=== PATIENT | male | born 1935 | race Caucasian/White ===

== ENCOUNTER → 2016-06-19 | Outpatient (CLI) | payer MEDICARE, BC ==
[2016-06-19 08:30] LABS: HEMATOCRIT 34.3 % (37.9-51.0); HEMOGLOBIN 11.8 g/dL (13.5-17.0); HGB HCT DIFFERENCE 1.1; MEAN CORPUSCULAR HGB CONC 34.4 g/dL (32.0-36.0); MEAN CORPUSCULAR VOLUME 99 fl (80-97); RED BLOOD COUNT 3.47 10^6/uL (4.35-5.55); RED CELL DISTRIBUTION WIDTH 15.5 % (11.5-14.0)
[2016-06-19 08:56] LABS: BASOPHILS % (MANUAL) 0 % (0-2); EOSINOPHILS % (MANUAL) 5 % (0-6); LYMPHOCYTES % (MANUAL) 47 % (13-45); TOTAL CELLS COUNTED 100
[2016-06-19 08:59] LABS: ALANINE AMINOTRANSFERASE 39 U/L (21-72); ALBUMIN 4.3 g/dL (3.5-5.0); ALKALINE PHOSPHATASE 84 U/L (38-126); ANION GAP 12 (5-19); ANISOCYTOSIS SLIGHT; ASPARTATE AMINO TRANSFERASE 41 U/L (17-59); BILIRUBIN,DIRECT 0.2 mg/dL (0.0-0.4); BILIRUBIN,TOTAL 0.8 mg/dL (0.2-1.3); BLOOD UREA NITROGEN 48 mg/dL (7-20); CALCIUM 8.8 mg/dL (8.4-10.2); CARBON DIOXIDE 25 mmol/L (22-30); CHLORIDE 106 mmol/L (98-107); CREATININE RESULT 1.55 mg/dL (0.52-1.25); GLUCOSE 84 mg/dL (75-110); OVALOCYTES 1+; POIKILOCYTOSIS 1+; POTASSIUM 4.8 mmol/L (3.6-5.0); SODIUM 143.2 mmol/L (137-145); TEAR DROP CELLS 1+; TOTAL PROTEIN 6.1 g/dL (6.3-8.2); URIC ACID 8.8 mg/dL (3.5-8.5)
[2016-06-20 05:40] LABS: THYROXINE (T4) 9.6 ug/dL (4.5-12.0)
== END ==
LOC: OD 07:40
PROVIDERS: ATTEND Family Medicine
DX: E03.9 Hypothyroidism, unspecified (principal); I10 Essential (primary) hypertension; C91.10 Chronic lymphocytic leukemia of B-cell type not having achieved remission
CPT/HCPCS: 36415; 80053; 84436; 84443; 84479; 84550; 85025

== ENCOUNTER 2017-04-07 13:25 | Emergency (ER) | payer MEDICARE, BC ==
--- NOTE | 2017-04-07 14:07 | ER Document Report ---
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 Constant. No injuries. He has been uptrending his oxycodone. He thinks that it is pseudogout. He has no myalgia sore throat or fevers. His has noted him to be increasingly confused in the setting of increasing his opiate use. TRAVEL OUTSIDE OF THE [place] 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 Musculoskeltal Medical History: Reports Hx Arthritis Past Surgical History: Reports: Hx Appendectomy, Hx Herniorrhaphy - Left inguinal, Hx Orthopedic Surgery - Right ankle reconstruction, multilevel spinal fusion, Hx Vascular Surgery - Varicose vein surgery Review of Systems - Review of Systems Notes: REVIEW OF SYSTEMS GEN: Denies fever, chills, weight loss ENT: Denies sore throat, nasal discharge, ear pain EYES: Denies blurry vision, eye pain, discharge CV: Denies chest pain, palpitations, edema RESP: Denies cough, shortness of breath, wheezing GI: Denies abdominal pain, nausea, vomiting, diarrhea MSK: Generalized joint pain, leg edema bilaterally SKIN: Denies rash, skin lesions LYMPH: Denies swollen glands/lymph nodes NEURO: Denies headache, focal weakness or numbness, dizziness PSYCH: Denies depression, suicidal or homicidal ideation PHYSICAL EXAMINATION General: No acute distress, well-nourished Head: Atraumatic, normocephalic ENT: Mouth normal, oropharynx moist, no exudates or tonsillar enlargement Eyes: Conjunctiva normal, pupils equal, lids normal Neck: No JVD, supple, no guarding CVS: Normal rate, regular rhythm, no murmurs Resp: No resp distress, equal and normal breath sounds bilaterally GI: Nondistended, soft, no tenderness to palpation, no rebound or guarding Ext: No deformities, chronic discoloration in bilateral leg edema from the calves to the toes. Shoulder with some pain on range of motion but range of motion is generally preserved without crepitus. Knee and ankle range of motion is normal. Back: No CVA or midline TTP Skin: No rash, warm Lymphatic: No lymphadeopathy noted Neuro: Awake, alert. Face symmetric. GCS 15. Sharp memory. Speech fluent. Physical Exam - Vital signs Vitals: Resp Pulse Ox 18 96 04/07/17 13:38 04/07/17 13:38 Course - Re-evaluation Re-evalutation: 04/07/17 14:06 81-year-old male with increased confusion in the setting of increasing oxycodone dose taken for chronic recurrent joint pains. None of his joints appear hot and inflamed so I do not think he has septic arthritis. Likely a polyarthralgia such as pseudogout or generalized myalgias. That said the pain is only in joints and he has no muscle tenderness or firmness making rhabdo myolysis less likely. I will rule out a UTI and infection with urine and labs. I withhold opiates given his reported confusion. 04/07/17 16:01 Labs are normal creatinine is at baseline and urine is negative. Chest x-ray did not show volume overload. Spoke with patient, as well as his primary care doctor Macho and his daughter who is a physician. All are in agreement that he would be best served at home with home health which they are able to set up. I told him if he is having issues with that he can come back anytime and be admitted for placement. Asked me to send an ESR for concern for polymyalgia rheumatica. This was added on to be followed up by the primary. I see fax the primary care doctor the records from today. I have discussed with the patient there likely diagnosis, aftercare plan, follow -up plans and my usual and customary return precautions. They verbalized understanding of this. - Vital Signs Vital signs: Temp Pulse Resp BP Pulse Ox 99.1 F 14 141/74 H 100 04/07/17 13:39 04/07/17 15:26 04/07/17 15:26 04/07/17 15:26 - Laboratory Result Diagrams: 04/07/17 13:55 04/07/17 13:55 Laboratory results interpreted by me: 04/07/17 04/07/17 04/07/17 13:55 13:55 15:23 RBC 3.17 L Hgb 10.8 L Hct 32.3 L MCV 102 H MCH 34.1 H RDW 14.2 H Plt Count 67 L Band Neutrophils % 1 L Chloride 108 H BUN 33 H Creatinine 1.58 H Est GFR ( Amer) 51 L Est GFR (Non-Af Amer) 42 L Glucose 119 H Urine Protein 100 H Urine Ascorbic Acid 40 H Discharge - Discharge Clinical Impression: Arthralgia Qualifiers: Joint pain location: unspecified Qualified Code(s): M25.50 - Pain in unspecified joint Condition: Good Disposition: HOME, SELF-CARE Instructions: Pseudogout ([facility]) Additional Instructions: Please carefully use oxycodone to control your pain. You may add Tylenol, and ibuprofen as needed. A short course of ibuprofen should not be too bad for your stomach. I spoke with your doctor who will help to arrange home health. If you feel that you are too weak to accomplish her goals with home health or get any sicker in any way please return to the emergency room for admission to the hospital. Referrals: ISMAEL HARRIS MD [Primary Care Provider] - Follow up as needed
[2017-04-07] MEDS ORDERED: LIDOCAINE 2% JELLY 5 ML TUBE TOP ONE (14:15)
--- NOTE | 2017-04-07 14:32 | RADIOLOGY REPORT (SQ) ---
EXAM DESCRIPTION: CHEST SINGLE VIEW COMPLETED DATE/TIME: 04/07/2017 2:05 pm REASON FOR STUDY: ams, r/o infultraste COMPARISON: 01/31/2016 EXAM PARAMETERS: NUMBER OF VIEWS: One view. TECHNIQUE: Single frontal radiographic view of the chest acquired. RADIATION DOSE: NA LIMITATIONS: None. FINDINGS: LUNGS AND PLEURA: No evidence of pulmonary edema or pneumonia. No effusions. MEDIASTINUM AND HILAR STRUCTURES: Calcified mediastinal nodes. HEART AND VASCULAR STRUCTURES: Stable heart size. BONES: No acute findings. HARDWARE: Stable position of pacemaker. OTHER: No other significant finding. IMPRESSION: NO ACUTE RADIOGRAPHIC FINDING IN THE CHEST. TECHNICAL DOCUMENTATION: JOB ID: [id number] [employer]- All Rights Reserved
[2017-04-07 14:34] LABS: HEMATOCRIT 32.3 % (37.9-51.0); HEMOGLOBIN 10.8 g/dL (13.5-17.0); MEAN CORPUSCULAR HEMOGLOBIN 34.1 pg (27.0-33.4); MEAN CORPUSCULAR HGB CONC 33.5 g/dL (32.0-36.0); MEAN CORPUSCULAR VOLUME 102 fl (80-97); RED BLOOD COUNT 3.17 10^6/uL (4.35-5.55); RED CELL DISTRIBUTION WIDTH 14.2 % (11.5-14.0); WHITE BLOOD COUNT 7.5 10^3/uL (4.0-10.5)
[2017-04-07 14:47] LABS: ANION GAP 5 (5-19); BLOOD UREA NITROGEN 33 mg/dL (7-20); CALCIUM 8.8 mg/dL (8.4-10.2); CARBON DIOXIDE 25 mmol/L (22-30); CHLORIDE 108 mmol/L (98-107); GLUCOSE 119 mg/dL (75-110); POTASSIUM 4.3 mmol/L (3.6-5.0); SODIUM 137.8 mmol/L (137-145)
[2017-04-07 15:08] LABS: PLATELET COUNT 67 10^3/uL (150-450)
[2017-04-07 15:10] LABS: ABSOLUTE MONOCYTES # (MANUAL) 0.4 10^3/uL (0.1-1.4); ABSOLUTE NEUTROPHILS# (MANUAL) 5.1 10^3/uL (1.7-8.2); BAND NEUTROPHILS % (MANUAL) 1 % (3-5); BASOPHILS % (MANUAL) 0 % (0-2); EOSINOPHILS % (MANUAL) 0 % (0-6); LYMPHOCYTES % (MANUAL) 27 % (13-45); MONOCYTES % (MANUAL) 5 % (3-13); SEGMENTED NEUTROPHILS % (MAN) 67 % (42-78); TOTAL CELLS COUNTED 100
[2017-04-07 15:11] LABS: OVALOCYTES 1+; PLATELET COMMENT DECREASED; POIKILOCYTOSIS 1+; POLYCHROMASIA SLIGHT; TOXIC GRANULATION SLIGHT
[2017-04-07 15:12] LABS: HYPOCHROMASIA SLIGHT; TEAR DROP CELLS SLIGHT
[2017-04-07 15:51] LABS: APPEARANCE,URINE SLIGHTLY-CLOUDY; BILIRUBIN,URINE NEGATIVE (NEGATIVE); COLOR,URINE YELLOW; GLUCOSE, URINE NEGATIVE (NEGATIVE); KETONES,URINE NEGATIVE (NEGATIVE); LEUKOCYTE ESTERASE,URINE NEGATIVE (NEGATIVE); NITRITE,URINE NEGATIVE (NEGATIVE); PROTEIN,URINE 100 mg/dL (NEGATIVE); UROBILINOGEN,URINE NEGATIVE mg/dL (<2.0)
[2017-04-07 16:12] VITALS: BP 139/72
== END 2017-04-07 16:44 | disposition home or self-care (01) ==
LOC: ER 13:25
DX: M25.50 Pain in unspecified joint (principal); M79.1 Myalgia; I50.9 Heart failure, unspecified; I48.91 Unspecified atrial fibrillation; E78.00 Pure hypercholesterolemia, unspecified; E03.9 Hypothyroidism, unspecified; Z98.1 Arthrodesis status
CPT/HCPCS: 36415; 51701; 71045; 80048; 81001; 83605; 85025; 85652; 87040; 87086; 99284

== ENCOUNTER → 2017-05-01 | Outpatient (CLI) | payer MEDICARE, BC ==
[2017-05-01 08:45] LABS: HEMATOCRIT 33.4 % (37.9-51.0); HEMOGLOBIN 11.1 g/dL (13.5-17.0); MEAN CORPUSCULAR HEMOGLOBIN 34.2 pg (27.0-33.4); MEAN CORPUSCULAR HGB CONC 33.3 g/dL (32.0-36.0); MEAN CORPUSCULAR VOLUME 103 fl (80-97); RED BLOOD COUNT 3.25 10^6/uL (4.35-5.55); RED CELL DISTRIBUTION WIDTH 15.6 % (11.5-14.0); WHITE BLOOD COUNT 9.2 10^3/uL (4.0-10.5)
[2017-05-01 09:11] LABS: PLATELET COUNT 68 10^3/uL (150-450)
[2017-05-01 09:13] LABS: ABSOLUTE LYMPHOCYTES# (MANUAL) 4.4 10^3/uL (0.5-4.7); ABSOLUTE MONOCYTES # (MANUAL) 0.3 10^3/uL (0.1-1.4); ABSOLUTE NEUTROPHILS# (MANUAL) 4.1 10^3/uL (1.7-8.2); BASOPHILS % (MANUAL) 0 % (0-2); EOSINOPHILS % (MANUAL) 4 % (0-6); LYMPHOCYTES % (MANUAL) 48 % (13-45); MONOCYTES % (MANUAL) 3 % (3-13); SEGMENTED NEUTROPHILS % (MAN) 45 % (42-78); TOTAL CELLS COUNTED 100
[2017-05-01 09:14] LABS: ANISOCYTOSIS SLIGHT; OVALOCYTES 1+; POIKILOCYTOSIS 2+; SCHISTOCYTES 1+
[2017-05-01 09:15] LABS: PLATELET COMMENT DECREASED; TEAR DROP CELLS 1+
== END ==
LOC: OD 08:06
PROVIDERS: ATTEND Internal Medicine Medical Oncology
DX: C91.10 Chronic lymphocytic leukemia of B-cell type not having achieved remission (principal)
CPT/HCPCS: 36415; 85025

== ENCOUNTER → 2017-05-08 | Outpatient (CLI) | payer MEDICARE, BC ==
[2017-05-08 08:00] LABS: HEMOGLOBIN 10.8 g/dL (13.5-17.0); MEAN CORPUSCULAR HEMOGLOBIN 34.6 pg (27.0-33.4); MEAN CORPUSCULAR HGB CONC 33.8 g/dL (32.0-36.0); MEAN CORPUSCULAR VOLUME 103 fl (80-97); RED BLOOD COUNT 3.12 10^6/uL (4.35-5.55); RED CELL DISTRIBUTION WIDTH 16.3 % (11.5-14.0); WHITE BLOOD COUNT 9.2 10^3/uL (4.0-10.5)
[2017-05-08 08:34] LABS: ALANINE AMINOTRANSFERASE 28 U/L (21-72); ALBUMIN 3.6 g/dL (3.5-5.0); ALKALINE PHOSPHATASE 72 U/L (38-126); ANION GAP 8 (5-19); ASPARTATE AMINO TRANSFERASE 14 U/L (17-59); BILIRUBIN,DIRECT 0.3 mg/dL (0.0-0.4); BILIRUBIN,TOTAL 0.8 mg/dL (0.2-1.3); BLOOD UREA NITROGEN 35 mg/dL (7-20); CALCIUM 8.7 mg/dL (8.4-10.2); CARBON DIOXIDE 27 mmol/L (22-30); CHLORIDE 108 mmol/L (98-107); GLUCOSE 92 mg/dL (75-110); POTASSIUM 4.4 mmol/L (3.6-5.0); SODIUM 142.5 mmol/L (137-145); TOTAL PROTEIN 5.7 g/dL (6.3-8.2)
[2017-05-08 08:42] LABS: PLATELET COUNT 71 10^3/uL (150-450)
[2017-05-08 08:43] LABS: ABSOLUTE LYMPHOCYTES# (MANUAL) 6.7 10^3/uL (0.5-4.7); ABSOLUTE MONOCYTES # (MANUAL) 0.1 10^3/uL (0.1-1.4); ABSOLUTE NEUTROPHILS# (MANUAL) 2.4 10^3/uL (1.7-8.2); ANISOCYTOSIS 1+; BASOPHILS % (MANUAL) 0 % (0-2); EOSINOPHILS % (MANUAL) 0 % (0-6); LYMPHOCYTES % (MANUAL) 73 % (13-45); MONOCYTES % (MANUAL) 1 % (3-13); PLATELET COMMENT DECREASED; SEGMENTED NEUTROPHILS % (MAN) 26 % (42-78); TOTAL CELLS COUNTED 100
[2017-05-08 14:46] LABS: HEMOGLOBIN 10.8 g/dL (13.5-17.0); MEAN CORPUSCULAR HEMOGLOBIN 34.6 pg (27.0-33.4); MEAN CORPUSCULAR HGB CONC 33.8 g/dL (32.0-36.0); MEAN CORPUSCULAR VOLUME 103 fl (80-97); RED BLOOD COUNT 3.12 10^6/uL (4.35-5.55); RED CELL DISTRIBUTION WIDTH 16.3 % (11.5-14.0); WHITE BLOOD COUNT 9.2 10^3/uL (4.0-10.5)
[2017-05-08 14:47] LABS: PLATELET COUNT 71 10^3/uL (150-450)
[2017-05-08 14:48] LABS: ABSOLUTE LYMPHOCYTES# (MANUAL) 6.6 10^3/uL (0.5-4.7); ABSOLUTE MONOCYTES # (MANUAL) 0.1 10^3/uL (0.1-1.4); ABSOLUTE NEUTROPHILS# (MANUAL) 2.4 10^3/uL (1.7-8.2); BASOPHILS % (MANUAL) 0 % (0-2); EOSINOPHILS % (MANUAL) 0 % (0-6); MONOCYTES % (MANUAL) 1 % (3-13); SEGMENTED NEUTROPHILS % (MAN) 26 % (42-78); TOTAL CELLS COUNTED 100
[2017-05-08 14:49] LABS: ANISOCYTOSIS 1+; LYMPHOCYTES % (MANUAL) 72 % (13-45); PLATELET COMMENT DECREASED
[2017-05-08 14:51] LABS: SMUDGE CELLS PRESENT
[2017-05-08 14:52] LABS: SMUDGE CELLS PRESENT
[2017-05-08 15:00] LABS: ALANINE AMINOTRANSFERASE 28 U/L (21-72); ALBUMIN 3.6 g/dL (3.5-5.0); ALKALINE PHOSPHATASE 72 U/L (38-126); ANION GAP 8 (5-19); ASPARTATE AMINO TRANSFERASE 14 U/L (17-59); BILIRUBIN,DIRECT 0.3 mg/dL (0.0-0.4); BILIRUBIN,TOTAL 0.8 mg/dL (0.2-1.3); BLOOD UREA NITROGEN 35 mg/dL (7-20); CALCIUM 8.7 mg/dL (8.4-10.2); CARBON DIOXIDE 27 mmol/L (22-30); CHLORIDE 108 mmol/L (98-107); GLUCOSE 92 mg/dL (75-110); POTASSIUM 4.4 mmol/L (3.6-5.0); SODIUM 142.5 mmol/L (137-145); TOTAL PROTEIN 5.7 g/dL (6.3-8.2)
[2017-05-08 15:08] LABS: CHOLESTEROL 143.05 mg/dL (0-200); CREATINE KINASE 64 U/L (55-170); TRIGLYCERIDES 77 mg/dL (<150); URIC ACID 7.4 mg/dL (3.5-8.5)
[2017-05-08 15:17] LABS: DIRECT LDL 65 mg/dL (<100)
[2017-05-08 15:42] LABS: C-REACTIVE PROTEIN < 5.0 mg/L (<10.0)
[2017-05-09 13:19] LABS: PATH REVIEW PATHOLOGIST REVIEWED
[2017-05-09 13:20] LABS: PATH REVIEW PATHOLOGIST REVIEWED
== END ==
LOC: OD 07:10
PROVIDERS: ATTEND Family Medicine
DX: C91.10 Chronic lymphocytic leukemia of B-cell type not having achieved remission (principal)
CPT/HCPCS: 36415; 80053; 80061; 82533; 82550; 83735; 84443; 84550; 85025; 86038; 86140; 86430

== ENCOUNTER → 2017-06-18 | Outpatient (CLI) | payer MEDICARE, BC ==
[2017-06-18 09:16] LABS: HEMATOCRIT 32.5 % (37.9-51.0); HEMOGLOBIN 10.8 g/dL (13.5-17.0); MEAN CORPUSCULAR HEMOGLOBIN 34.2 pg (27.0-33.4); MEAN CORPUSCULAR HGB CONC 33.1 g/dL (32.0-36.0); MEAN CORPUSCULAR VOLUME 103 fl (80-97); RED BLOOD COUNT 3.15 10^6/uL (4.35-5.55); RED CELL DISTRIBUTION WIDTH 15.7 % (11.5-14.0)
[2017-06-18 09:38] LABS: ANION GAP 10 (5-19); BLOOD UREA NITROGEN 46 mg/dL (7-20); C-REACTIVE PROTEIN 21.4 mg/L (<10.0); CALCIUM 8.7 mg/dL (8.4-10.2); CARBON DIOXIDE 29 mmol/L (22-30); CHLORIDE 108 mmol/L (98-107); CHOLESTEROL 146.77 mg/dL (0-200); CREATINE KINASE 63 U/L (55-170); GLUCOSE 98 mg/dL (75-110); PHOSPHORUS 3.9 mg/dL (2.5-4.5); POTASSIUM 5.2 mmol/L (3.6-5.0); SODIUM 146.6 mmol/L (137-145); TRIGLYCERIDES 55 mg/dL (<150); URIC ACID 8.1 mg/dL (3.5-8.5)
[2017-06-18 09:45] LABS: PLATELET COUNT 92 10^3/uL (150-450)
[2017-06-18 09:47] LABS: DIRECT LDL 72 mg/dL (<100)
[2017-06-18 09:48] LABS: ABSOLUTE LYMPHOCYTES# (MANUAL) 6.4 10^3/uL (0.5-4.7); ABSOLUTE MONOCYTES # (MANUAL) 0.3 10^3/uL (0.1-1.4); ABSOLUTE NEUTROPHILS# (MANUAL) 3.2 10^3/uL (1.7-8.2); ANISOCYTOSIS SLIGHT; BASOPHILS % (MANUAL) 0 % (0-2); EOSINOPHILS % (MANUAL) 1 % (0-6); LYMPHOCYTES % (MANUAL) 64 % (13-45); MONOCYTES % (MANUAL) 3 % (3-13); OVALOCYTES 1+; PLATELET COMMENT DECREASED; POIKILOCYTOSIS 1+; POLYCHROMASIA SLIGHT; SEGMENTED NEUTROPHILS % (MAN) 32 % (42-78); TEAR DROP CELLS SLIGHT; TOTAL CELLS COUNTED 100; TOXIC GRANULATION SLIGHT
[2017-06-18 09:53] LABS: ERYTHROCYTE SEDIMENTATION RATE 28 mm/hr (0-20)
== END ==
LOC: OD 07:18
PROVIDERS: ATTEND Family Medicine
DX: E03.9 Hypothyroidism, unspecified (principal); E78.5 Hyperlipidemia, unspecified; M35.3 Polymyalgia rheumatica; I10 Essential (primary) hypertension; C91.10 Chronic lymphocytic leukemia of B-cell type not having achieved remission; I49.9 Cardiac arrhythmia, unspecified; G72.3 Periodic paralysis
CPT/HCPCS: 36415; 80048; 80061; 82550; 83735; 84100; 84436; 84443; 84550; 85025; 85652; 86140

== ENCOUNTER → 2017-07-29 | Outpatient (CLI) | payer MEDICARE, BC ==
[2017-07-29 09:36] LABS: ANION GAP 11 (5-19); BLOOD UREA NITROGEN 49 mg/dL (7-20); C-REACTIVE PROTEIN 5.1 mg/L (<10.0); CALCIUM 8.8 mg/dL (8.4-10.2); CARBON DIOXIDE 28 mmol/L (22-30); CHLORIDE 107 mmol/L (98-107); GLUCOSE 95 mg/dL (75-110); POTASSIUM 4.9 mmol/L (3.6-5.0); SODIUM 145.8 mmol/L (137-145); URIC ACID 7.9 mg/dL (3.5-8.5)
== END ==
LOC: OD 07:37
PROVIDERS: ATTEND Family Medicine
DX: E03.9 Hypothyroidism, unspecified (principal); I10 Essential (primary) hypertension; M85.80 Other specified disorders of bone density and structure, unspecified site; M35.3 Polymyalgia rheumatica
CPT/HCPCS: 36415; 80048; 82306; 84443; 84550; 85652; 86140

== ENCOUNTER 2018-01-21 19:56 | Emergency (ER) | payer MEDICARE, BC ==
--- NOTE | 2018-01-21 20:44 | ER Document Report ---
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 Patient feels that he has a urinary tract infection. He denies feeling like he is retaining urine. Patient states that he has been emptying his bladder every few hours and having about 400cc output each time. He denies abdominal pain, nausea, vomiting, diarrhea, constipation. He denies any new swelling to the lower extremities. Says that they're chronically edematous. He denies chest pain or shortness of breath. TRAVEL OUTSIDE OF THE [place] IN LAST 30 DAYS: No - HPI Onset: Yesterday Onset/Duration: Gradual Quality of pain: No pain Severity: None Pain Level: Denies Associated symptoms: None Exacerbated by: Denies Relieved by: Denies Similar symptoms previously: No Recently seen / treated by doctor: No - Related Data Allergies/Adverse Reactions: NSAIDS (Non-Steroidal Anti-Inflamma Adverse Reaction (Intermediate, Verified 23:41) Past Medical History - General Information source: Patient - Social History Smoking Status: Never Smoker Family History: CAD, Other - Alzheimer's - Past Medical History Cardiac Medical History: Reports: Hx Atrial Fibrillation, Hx Hypercholesterolemia, Hx Hypertension Pulmonary Medical History: Reports: Hx Sleep Apnea Endocrine Medical History: Reports: Hx Hypothyroidism Renal/ Medical History: Denies: Hx Peritoneal Dialysis Malignancy Medical History: 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 Musculoskeletal Medical History: Reports Hx Arthritis Past Surgical History: Reports: Hx Appendectomy, Hx Herniorrhaphy - Left inguinal, Hx Orthopedic Surgery - Right ankle reconstruction, multilevel spinal fusion, Hx Vascular Surgery - Varicose vein surgery Review of Systems - Review of Systems Constitutional: No symptoms reported EENT: No symptoms reported Cardiovascular: No symptoms reported Respiratory: No symptoms reported Gastrointestinal: No symptoms reported Genitourinary: Dysuria, Frequency, Incontinence, Urgency Male Genitourinary: No symptoms reported Musculoskeletal: No symptoms reported Skin: No symptoms reported Hematologic/Lymphatic: No symptoms reported Neurological/Psychological: No symptoms reported -: Yes All other systems reviewed and negative Physical Exam - Vital signs Vitals: Temp Pulse Resp BP Pulse Ox 98.6 F 73 18 119/76 96 01/21/18 19:57 01/21/18 19:57 01/21/18 19:57 01/21/18 19:57 01/21/18 19:57 - Notes Notes: PHYSICAL EXAMINATION: GENERAL: Well-appearing, well-nourished and in no acute distress. HEAD: Atraumatic, normocephalic. EYES: Pupils equal round and reactive to light, extraocular movements intact, sclera anicteric, conjunctiva are normal. ENT: Nares patent, oropharynx clear without exudates. Moist mucous membranes. NECK: Normal range of motion, supple without lymphadenopathy LUNGS: Breath sounds clear to auscultation bilaterally and equal. No wheezes rales or rhonchi. HEART: Regular rate and rhythm without murmurs ABDOMEN: Soft, nontender, nondistended abdomen. No guarding, no rebound. No masses appreciated. Musculoskeletal: Normal range of motion, bilateral 1+ pitting edema. No calf tenderness to palpation. NEUROLOGICAL: Cranial nerves grossly intact. Normal speech, normal gait. Normal sensory, motor exams PSYCH: Normal mood, normal affect. SKIN: Warm, Dry, normal turgor, no rashes or lesions noted. Course - Re-evaluation Re-evalutation: 01/21/18 23:09 White blood cell count normal. No signs of infection in the urine. Creatinine is 1.87. Previous values 1.76. Bladder scan was done. 125cc in the bladder. I discussed results with the patient. He plans on following up with urology. He wanted me to contacted his Daughter who is a physician to discuss results. I spoke with her. She's going to arrange urology followup in [place] where she lives. The patient is going to travel up there tomorrow. She's comfortable with the plan of care and will arrange appropriate follow up. I provided local urologists in his discharge papers incase he doesn't make it to [place] this weekend. In instructed the patient to return for fever, chills, abdominal pain, or worsening symptoms. 01/21/18 23:14 - Vital Signs Vital signs: Temp Pulse Resp BP Pulse Ox 98.6 F 73 18 119/76 96 01/21/18 19:57 01/21/18 19:57 01/21/18 19:57 01/21/18 19:57 01/21/18 19:57 - Laboratory Result Diagrams: 01/21/18 21:02 01/21/18 21:02 Laboratory results interpreted by me: 01/21/18 01/21/18 01/21/18 20:35 21:02 21:02 RBC 2.82 L Hgb 10.0 L Hct 29.3 L MCV 104 H MCH 35.5 H RDW 15.7 H Plt Count 52 L Carbon Dioxide 31 H BUN 51 H Creatinine 1.87 H Est GFR ( Amer) 42 L Est GFR (Non-Af Amer) 35 L Glucose 112 H Total Bilirubin 1.6 H Total Protein 5.1 L Albumin 3.1 L Urine Protein 100 H Urine Urobilinogen 2.0 H Urine Ascorbic Acid 20 H Discharge - Discharge Clinical Impression: Urinary incontinence Qualifiers: Urinary Incontinence type: unspecified incontinence Qualified Code(s): R32 - Unspecified urinary incontinence Chronic renal failure Qualifiers: Chronic kidney disease stage: unspecified stage Qualified Code(s): N18.9 - Chronic kidney disease, unspecified Condition: Good Disposition: HOME, SELF-CARE Instructions: Kidney Failure ([facility]), [facility]inary Incontinence ([facility]) Referrals: ISMAEL HARRIS MD [Primary Care Provider] - Follow up as needed ELVIRA MILAN MD [NO LOCAL MD] - Follow up as needed HUMZA BLOOD MD [EMERITUS] - Follow up as needed
[2018-01-21 20:54] LABS: APPEARANCE,URINE CLEAR; BILIRUBIN,URINE NEGATIVE (NEGATIVE); COLOR,URINE YELLOW; GLUCOSE, URINE NEGATIVE (NEGATIVE); KETONES,URINE NEGATIVE (NEGATIVE); LEUKOCYTE ESTERASE,URINE NEGATIVE (NEGATIVE); NITRITE,URINE NEGATIVE (NEGATIVE); PROTEIN,URINE 100 mg/dL (NEGATIVE); URINE SPECIFIC GRAVITY 1.017
[2018-01-21 21:22] LABS: ABSOLUTE MONOCYTES (AUTO) 0.3 10^3/uL (0.1-1.4); ABSOLUTE NEUT (AUTO) 3.2 10^3/uL (1.7-8.2); BASOPHILS % (AUTO) 0.1 % (0-2); EOSINOPHILS % (AUTO) 0.5 % (0-6); HEMATOCRIT 29.3 % (37.9-51.0); MEAN CORPUSCULAR HEMOGLOBIN 35.5 pg (27.0-33.4); MEAN CORPUSCULAR HGB CONC 34.1 g/dL (32.0-36.0); MEAN CORPUSCULAR VOLUME 104 fl (80-97); RED BLOOD COUNT 2.82 10^6/uL (4.35-5.55); RED CELL DISTRIBUTION WIDTH 15.7 % (11.5-14.0); SEGMENTED NEUTROPHILS % (AUTO) 57.4 % (42-78); TOTAL CELLS COUNTED % (AUTO) 100 %; WHITE BLOOD COUNT 5.6 10^3/uL (4.0-10.5)
[2018-01-21 21:24] LABS: PLATELET COUNT 52 10^3/uL (150-450)
[2018-01-21 21:31] LABS: ALANINE AMINOTRANSFERASE 25 U/L (21-72); ALBUMIN 3.1 g/dL (3.5-5.0); ALKALINE PHOSPHATASE 50 U/L (38-126); ANION GAP 5 (5-19); ASPARTATE AMINO TRANSFERASE 21 U/L (17-59); BILIRUBIN,DIRECT 0.3 mg/dL (0.0-0.4); BILIRUBIN,TOTAL 1.6 mg/dL (0.2-1.3); BLOOD UREA NITROGEN 51 mg/dL (7-20); CALCIUM 8.4 mg/dL (8.4-10.2); CARBON DIOXIDE 31 mmol/L (22-30); CHLORIDE 106 mmol/L (98-107); GLUCOSE 112 mg/dL (75-110); POTASSIUM 4.5 mmol/L (3.6-5.0); SODIUM 141.8 mmol/L (137-145); TOTAL PROTEIN 5.1 g/dL (6.3-8.2)
[2018-01-22 00:46] VITALS: BP 120/72
== END 2018-01-21 23:15 | disposition home or self-care (01) ==
LOC: ER 19:56
DX: R32 Unspecified urinary incontinence (principal); I12.9 Hypertensive chronic kidney disease with stage 1 through stage 4 chronic kidney disease, or unspecified chronic kidney disease; N18.9 Chronic kidney disease, unspecified; R35.0 Frequency of micturition; R30.0 Dysuria; R39.15 Urgency of urination; R60.9 Edema, unspecified; Z87.440 Personal history of urinary (tract) infections; Z85.6 Personal history of leukemia
CPT/HCPCS: 36415; 80053; 81001; 85025; 99284

== ENCOUNTER 2018-06-03 00:26 | Inpatient (IN) | payer MEDICARE, BC ==
[2018-06-03] MEDS ORDERED: VANCOMYCIN HCL INJ 1000 MG VIAL IV ONE (00:51)
[2018-06-03] MEDS ORDERED: PIPERACILLIN/TAZOBACTAM 4.5 GM VIAL IV ONE (00:52)
[2018-06-03] MEDS: NORMAL SALINE 1000 ML 1,000 ML IV PRN ×4 (00:58→19:48)
--- NOTE | 2018-06-03 00:59 | ER Document Report ---
ED General - General Stated Complaint: FEVER Time Seen by Provider: 06/03/18 00:40 Notes: Patient is a very pleasant 83-year-old male who presents with complaints of con fusion, fever, weakness, and sudden onset of redness and swelling to the right lower leg. Redness and swelling is circumferential from the knee down to the ankle and foot. He does have a history of chronic edema in his legs. says that this can color to his legs is usually a bit dark but never red and inflamed like this. Patient is not diabetic. No other complaints at this time. TRAVEL OUTSIDE OF THE [place] IN LAST 30 DAYS: No - Related Data Allergies/Adverse Reactions: NSAIDS (Non-Steroidal Anti-Inflamma Adverse Reaction (Intermediate, Verified 01/30/16 23:41) Past Medical History - Social History Smoking Status: Never Smoker Frequency of alcohol use: None Drug Abuse: None Family History: CAD, Other - Alzheimer's - Past Medical History Cardiac Medical History: Reports: Hx Atrial Fibrillation, Hx Hypercholesterolemia, Hx Hypertension Pulmonary Medical History: Reports: Hx Sleep Apnea Endocrine Medical History: Reports: Hx Hypothyroidism Renal/ Medical History: Denies: Hx Peritoneal Dialysis Malignancy Medical History: 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 Denies nasal or sinus congestion. CARDIOVASCULAR: Denies chest pain. RESPIRATORY: Denies cough, cold, or chest congestion. Denies shortness of breath, difficulty breathing, or wheezing. GASTROINTESTINAL: Denies abdominal pain. Denies nausea, vomiting, or diarrhea. GENITOURINARY: Denies difficulty urinating, painful urination, burning, frequency, or blood in urine. MUSCULOSKELETAL: This and swelling to right lower leg. SKIN: Redness to right lower leg. HEMATOLOGIC : Denies easy bruising or bleeding. NEUROLOGICAL: Confusion. ALL OTHER SYSTEMS REVIEWED AND NEGATIVE. Physical Exam - Vital signs Vitals: Temp Pulse Resp BP Pulse Ox 99.2 F 77 18 89/46 L 97 06/03/18 00:36 06/03/18 00:36 06/03/18 00:36 06/03/18 00:36 06/03/18 00:36 - Notes Notes: General Appearance: Well nourished, alert, cooperative, very weak appearing. Slightly confused. Septic appearing. Vitals: reviewed, See vital signs table. Head: no swelling or tenderness to the head Eyes: PERRL, EOMI, Conjuctiva clear Mouth: No decreasd moisture Throat: No tonsillar inflammation, No airway obstruction, No lymphadenopathy Neck: Supple, no neck tenderness, No neck swelling Lungs: No wheezing, No rales, No rhonci, No accessory muscle use, good air exchange bilaterally. Heart: Normal rate, Regular rythm, No murmur, no rub Abdomen: Normal BS, soft, No rigidity, No abdominal tenderness, No guarding, no rebound, no abdominal masses, no organomegaly Extremities: Patient has circumferential swelling and redness from the knee down to the ankle and foot. He does have some streaking going up the medial left thigh. Skin: Cellulitis to right lower extremity Neuro: speech clear, oriented x 2, weak appearing, responds appropriately to some questions. Course - Re-evaluation Re-evalutation: 06/03/18 00:58 Patient has very red swollen leg that came on rapidly with old mental status and is hypotension. This is concerning for possible necrotizing fasciitis. I immediately ordered vancomycin and Zosyn. I have ordered IV fluids. I have spoken with Dr. Pennington, general surgery, who agrees to come evaluate the patient. 06/03/18 01:25 On reevaluation patient is more lucid. His blood pressure is now 88/49. He is receiving a second liter of fluids. After second liter of fluids is completed we will reassess to determine whether not I need to place a central line and start pressors. Dr. anand evaluate the patient. At this time he does not feel it is necrotizing fasciitis. We will go for the CT scan to further evaluate his leg. 06/03/18 04:34 Patient is a did respond to the second liter of fluids. I then placed him on maintenance with LR. I did go ahead and try place a central line as I anticipate that the patient's blood pressure might start to drop again and therefore might need pressors. I did try a right internal jugular line. I was able to get a good flash as well as advance the wire and dilator without difficulty but for some reason the triple-lumen would not thread. I therefore aborted the procedure. Patient later started to have some hypotension. I did start him on Levophed. I did contact Dr. Pennington make him aware that the patient is now started on Levophed. Patient is responding to the Levophed. Dictation of this chart was performed using voice recognition software; therefore, there may be some unintended grammatical errors. - Vital Signs Vital signs: Temp Pulse Resp BP Pulse Ox 99.6 F 77 12 118/63 96 06/03/18 06:51 06/03/18 00:36 06/03/18 06:51 06/03/18 06:51 06/03/18 06:51 - Laboratory Result Diagrams: 06/03/18 00:40 06/03/18 00:40 Laboratory results interpreted by me: 06/03/18 06/03/18 06/03/18 00:40 00:40 00:40 RBC 2.79 L Hgb 9.6 L Hct 28.1 L MCV 101 H MCH 34.5 H RDW 15.5 H Plt Count 58 L Monocytes % (Manual) 2 L PT VBG pH 7.44 H Sodium 136.9 L BUN 67 H Creatinine 2.24 H Est GFR ( Amer) 34 L Est GFR (Non-Af Amer) 28 L Glucose 135 H POC Glucose Total Bilirubin 1.5 H Total Protein 5.0 L Albumin 3.0 L 06/03/18 06/03/18 00:40 00:48 RBC Hgb Hct MCV MCH RDW Plt Count Monocytes % (Manual) PT 15.5 H VBG pH Sodium BUN Creatinine Est GFR ( Amer) Est GFR (Non-Af Amer) Glucose POC Glucose 134 H Total Bilirubin Total Protein Albumin - EKG Interpretation by Me Additional EKG results interpreted by me: 06/03/18 01:26 EKG is reviewed and interpreted by me. EKG shows sinus rhythm with a rate of [address] segment elevation or depression. No ischemic T wave inversions. LA interval is prolonged. QRS duration and QT intervals are within normal range. Old EKG for comparison is from January 31, 2016. Critical Care Note - Critical Care Note Total time excluding time spent on procedures (mins): 60 Comments: Critical care time for the patient not including time spent on procedures is approximately 60 minutes due to frequent re-evaluations, management of hypertension, management of sepsis. Discharge - Discharge Clinical Impression: Thrombocytopenia Cellulitis Qualifiers: Site of cellulitis: extremity Site of cellulitis of extremity: lower extremity Laterality: right Qualified Code(s): L03.115 - Cellulitis of right lower limb Sepsis Qualifiers: Sepsis type: sepsis due to unspecified organism Qualified Code(s): A41.9 - Sepsis, unspecified organism Condition: Serious Disposition: ADMITTED INPATIENT Admitting Provider: Surgicalist Unit Admitted: ICU
[2018-06-03 01:18] LABS: VENOUS BLOOD BASE EXCESS 1.9 mmol/L; VENOUS BLOOD HCO3 26.2 mmol/L (20-32); VENOUS BLOOD PCO2 39.7 mmHg (35-63); VENOUS BLOOD PH 7.44 (7.30-7.42)
[2018-06-03 01:24] LABS: INTERNATIONAL RATION (INR) 1.17; PROTHROMBIN TIME 15.5 SEC (11.4-15.4)
[2018-06-03 01:25] LABS: ALANINE AMINOTRANSFERASE 37 U/L (21-72); ALKALINE PHOSPHATASE 57 U/L (38-126); ANION GAP 6 (5-19); ASPARTATE AMINO TRANSFERASE 28 U/L (17-59); BILIRUBIN,DIRECT 0.2 mg/dL (0.0-0.4); BILIRUBIN,TOTAL 1.5 mg/dL (0.2-1.3); BLOOD UREA NITROGEN 67 mg/dL (7-20); CALCIUM 8.8 mg/dL (8.4-10.2); CARBON DIOXIDE 28 mmol/L (22-30); CHLORIDE 103 mmol/L (98-107); GLUCOSE 135 mg/dL (75-110); PARTIAL THROMBOPLASTIN TIME 27.5 SEC (23.5-35.8); POTASSIUM 3.8 mmol/L (3.6-5.0); SODIUM 136.9 mmol/L (137-145)
[2018-06-03 01:38] LABS: HEMATOCRIT 28.1 % (37.9-51.0); HEMOGLOBIN 9.6 g/dL (13.5-17.0); MEAN CORPUSCULAR HEMOGLOBIN 34.5 pg (27.0-33.4); MEAN CORPUSCULAR HGB CONC 34.3 g/dL (32.0-36.0); MEAN CORPUSCULAR VOLUME 101 fl (80-97); RED BLOOD COUNT 2.79 10^6/uL (4.35-5.55); RED CELL DISTRIBUTION WIDTH 15.5 % (11.5-14.0); WHITE BLOOD COUNT 4.1 10^3/uL (4.0-10.5)
[2018-06-03 01:46] LABS: PLATELET COUNT 58 10^3/uL (150-450)
[2018-06-03] MEDS ORDERED: RINGERS SOLUTION,LACTATED 1,000 ML IV ONE (01:47)
[2018-06-03 01:51] LABS: ABSOLUTE LYMPHOCYTES# (MANUAL) 1.2 10^3/uL (0.5-4.7); ABSOLUTE MONOCYTES # (MANUAL) 0.1 10^3/uL (0.1-1.4); ABSOLUTE NEUTROPHILS# (MANUAL) 2.8 10^3/uL (1.7-8.2); BAND NEUTROPHILS % (MANUAL) 3 % (3-5); BASOPHILS % (MANUAL) 0 % (0-2); EOSINOPHILS % (MANUAL) 0 % (0-6); HYPOCHROMASIA SLIGHT; LYMPHOCYTES % (MANUAL) 30 % (13-45); MONOCYTES % (MANUAL) 2 % (3-13); PLATELET COMMENT ADEQUATE; ROULEAUX SLIGHT; SEGMENTED NEUTROPHILS % (MAN) 65 % (42-78); TOTAL CELLS COUNTED 100
[2018-06-03] MEDS ORDERED: CLINDAMYCIN PHOSPHATE 750 MG in DEXTROSE 5%-WATER 100 ML IV ONE (02:30)
--- NOTE | 2018-06-03 02:38 | RADIOLOGY REPORT (SQ) ---
EXAM DESCRIPTION: CT LOWER EXTREMITY WITHOUT IV CONTRAST COMPLETED DATE/TME: 06/03/2018 01:27 CLINICAL HISTORY: Pain. 83 years Male, cellulitis right leg COMPARISON: None. Technique: No IV contrast. Coronal and sagittal reformat. This exam was performed according to our departmental dose-optimization program, which includes automated exposure control, adjustment of the mA and/or kV according to patient size and/or use of iterative reconstruction technique. [facility]: Dose Right [facility]: CareDose [facility]: Dose Right [facility]: Teradose 4D [facility]: [place] LIMITATIONS: Motion artifact. No contrast. Findings: Moderate subcutaneous circumferential soft tissue edema extends throughout the imaged right lower extremity from the level of the distal femoral metaphysis to the proximal forefoot without evidence of drainable fluid collection or abscess. No mass discerned. Osteotomy plate fixation of the distal fibular diaphysis. 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 Bony demineralization. Bipartite lateral right patella. Mild deformity of the proximal right fibular diaphysis probably due to prior injury although appearance could be exacerbated by motion artifact. Atherosclerotic vascular disease. No gross CT abnormality of the deep muscular compartments. No fascial gas. Bones, joints, and soft tissues of the CT RIGHT LOWER EXTREMITY WITHOUT IV CONTRAST appear otherwise intact. IMPRESSION: Moderate, extensive subcutaneous edema/cellulitis of the right lower extremity.
[2018-06-03] MEDS ORDERED: CLINDAMYCIN 600 MG/D5W RTU 0 MG/0 ML RTUPB IV ONE (02:43)
[2018-06-03] MEDS ORDERED: CLINDAMYCIN PHOSPHATE INJ 300 MG/2 ML SDV ONE (02:50)
[2018-06-03] MEDS ORDERED: PIPERACILLIN/TAZOBACTAM 3.375 GM VIAL IV PRN (03:24)
--- NOTE | 2018-06-03 03:31 | PDOC H&P ---
History of Present Illness Admission Date/PCP: ISMAEL HARRIS MD Patient complains of: Generalized weakness History of Present Illness: ROSAURA LYONS JR is a 83 year old male with 2-day history of generalized weakness and malaise with worsened urinary incontinence from baseline. Patient suffers from chronic joint pains which appears to have worsened in the last couple of days with inability to walk. He was noted with chronic bilateral lower extremity edema which worsened along with beefy red discoloration of the right lower leg. No drainage. Patient upon arrival to the ER was noted to be lethargic but arousable. Denies any lower extremity pain. Denies any abdominal pain. Patient denies any chest pain nor shortness of breath. Past Medical History Cardiac Medical History: Reports: Atrial Fibrillation, Hyperlipidema, Hypertension Pulmonary Medical History: Reports: Sleep Apnea Endocrine Medical History: Reports: Hypothyroidism Malignancy Medical History: Reports: Leukemia - CLL Musculoskeltal Medical History: Reports: Arthritis Hematology: Reports: Anemia - Attributed to CLL Past Surgical History Past Surgical History: Reports: Appendectomy, Herniorrhaphy - Left inguinal, Orthopedic Surgery - Right ankle reconstruction, multilevel spinal fusion, Vascular Surgery - Varicose vein surgery Social History Smoking Status: Unknown if Ever Smoked Frequency of Alcohol Use: None Hx Recreational Drug Use: No Drugs: None Family History Family History: CAD, Other - Alzheimer's Parental Family History Reviewed: No Children Family History Reviewed: No Sibling(s) Family History Reviewed.: No Medication/Allergy Home Medications: Furosemide 20 mg PO DAILY 04/07/17 Levothyroxine Sodium [Synthroid 0.1 mg Tablet] 0.1 mg PO DAILY 04/07/17 Dofetilide [Tikosyn 125 Mcg Capsule] 125 mcg PO BID 06/03/18 Esomeprazole Magnesium [Nexium] 20 mg PO DAILY 06/03/18 Nebivolol HCl [Bystolic 10 mg Tablet] 10 mg PO DAILY 06/03/18 Pramipexole Di-HCl [Mirapex 0.5 Mg Tablet] 0.5 mg PO DAILY 06/03/18 Prednisone [Deltasone 10 mg Tablet] 15 mg PO DAILY 06/03/18 Tamsulosin HCl [Flomax 0.4 mg Cap.sr] 0.4 mg PO DAILY 06/03/18 Allergies/Adverse Reactions: NSAIDS (Non-Steroidal Anti-Inflamma Adverse Reaction (Intermediate, Verified 01/30/16 23:41) Physical Exam Vital Signs: Temp Pulse Resp BP Pulse Ox 99.2 F 77 18 89/46 L 97 06/03/18 00:36 06/03/18 00:36 06/03/18 00:36 06/03/18 00:36 06/03/18 00:36 Intake & Output 06/01/18 06/02/18 06/03/18 06:59 06:59 06:59 Intake Total 1000 Balance 1000 General appearance: PRESENT: cooperative, other - Lethargic but arousable and answers questions well when aroused. Eye exam: PRESENT: conjunctiva pink Respiratory exam: PRESENT: clear to auscultation lo Cardiovascular exam: PRESENT: RRR Pulses: PRESENT: other - Palpable pedal pulses on the left. With the patient's marked edema difficult to palpate pulses on the right however I do feel a posterior tibial pulse along with triphasic Doppler signals. GI/Abdominal exam: PRESENT: other - Multiple torso bruises. Otherwise soft and nontender and nondistended. Extremities exam: PRESENT: other - Left lower extremity with 2+ pitting edema with dark discoloration but no erythema and no tenderness. Right lower extremity below the knee with diffuse 2+ pitting edema with beefy red erythema and tenderness but no crepitus and no blistering and no fluctuance. No drainage. Results Laboratory Results: 06/03/18 00:40 06/03/18 06/03/18 06/03/18 00:40 00:40 00:40 VBG pH 7.44 H VBG pCO2 39.7 VBG HCO3 26.2 VBG Base Excess 1.9 Sodium 136.9 L Potassium 3.8 Chloride 103 Carbon Dioxide 28 Anion Gap 6 BUN 67 H Creatinine 2.24 H Est GFR ( Amer) 34 L Est GFR (Non-Af Amer) 28 L Glucose 135 H Lactic Acid 1.4 Calcium 8.8 Total Bilirubin 1.5 H AST 28 ALT 37 Alkaline Phosphatase 57 Total Protein 5.0 L Albumin 3.0 L Assessment & Plan - Diagnosis (1) Sepsis Is this a current diagnosis for this admission?: Yes Plan: Patient with evident infection of his right lower extremity as source of his sepsis. Lack of pain, lack of severe metabolic derangement, lack of tachycardia, and lack of concerning CT scan findings all argue against ne crotizing fasciitis. I believe that he has cellulitis superimposed upon chronic venous insufficiency in the setting of an immunocompromised individual (CLL) who is also on chronic steroids. Patient's mental status has improved after IV hydration in the ER. I will admit the patient and place him on broad-spectrum IV antibiotics and IV fluids and closely observe the patient. If he demonstrates any evidence of worsening, will plan local wound exploration and biopsy. I will consult hospitalist as well as infectious disease.
[2018-06-03] MEDS ORDERED: NOREPINEPHRINE BITARTRATE INJ/PF 4 MG/4 ML SDV IV ONE (03:54)
--- NOTE | 2018-06-03 03:54 | RADIOLOGY REPORT (SQ) ---
EXAM DESCRIPTION: XR CHEST 1 VIEW COMPLETED DATE/TME: 06/03/2018 00:00 CLINICAL HISTORY: 83 years Male, FEVER, CENTRAL LINE PLACEMENT COMPARISON:04/07/2017 NUMBER OF VIEWS/TECHNIQUE: 1/AP FINDINGS: Adequate lung volume, clear parenchyma, mildly enlarged cardiac silhouette, and osteoarthritis. Left cardiac stimulator with leads. Old granulomatous disease. IMPRESSION: Mild cardiac enlargement.
[2018-06-03] MEDS ORDERED: DEXTROSE 5%-WATER 250 ML with NOREPINEPHRINE BITARTRATE 4 MG IV PRN ×4 (03:58→09:09)
[2018-06-03] MEDS ORDERED: HYDROMORPHONE HCL INJ/PF 2 MG/ML AMPULE IV PRN ×2 (04:30→04:32)
[2018-06-03 05:34] LABS: APPEARANCE,URINE CLEAR; BILIRUBIN,URINE NEGATIVE (NEGATIVE); COLOR,URINE YELLOW; GLUCOSE, URINE NEGATIVE (NEGATIVE); KETONES,URINE NEGATIVE (NEGATIVE); LEUKOCYTE ESTERASE,URINE NEGATIVE (NEGATIVE); NITRITE,URINE NEGATIVE (NEGATIVE); PROTEIN,URINE 100 mg/dL (NEGATIVE); URINE SPECIFIC GRAVITY 1.017; UROBILINOGEN,URINE NEGATIVE mg/dL (<2.0)
[2018-06-03] MEDS: PIPERACILLIN SODIUM/TAZOBACTAM 3.375 GM in NORMAL SALINE 100 ML IV SCH ×2 (06:26→12:50)
[2018-06-03] MEDS: LEVOTHYROXINE SODIUM 0.1 MG TABLET PO SCH (06:27)
[2018-06-03] MEDS: PANTOPRAZOLE SODIUM 20 MG TABLET.DR PO SCH (06:27)
--- NOTE | 2018-06-03 08:25 | Operative Report ---
Operative Report DATE OF SURGERY: 06/03/18 PREOPERATIVE DIAGNOSIS: Sepsis, critical need for central venous access POSTOPERATIVE DIAGNOSIS: Same OPERATION: Right subclavian triple-lumen central venous catheter placement SURGEON: LANA WRIGHT ANESTHESIA: Local TISSUE REMOVED OR ALTERED: None COMPLICATIONS: None ESTIMATED BLOOD LOSS: Minimal INTRAOPERATIVE FINDINGS: None PROCEDURE: Informed consent was obtained. Patient had a previous attempt at the right internal jugular in the ER that failed. Patient has a pacemaker on the left side. He has bilateral lower extremity edema with chronic venous insufficiency. Therefore a right subclavian vein cannulation was attempted. Patient's right chest and neck were prepped and draped in the usual sterile fashion. The right subclavian vein was cannulated without difficulty. Dark nonpulsatile blood was aspirated. Guidewire was placed without resistance. Triple-lumen central venous catheter was placed via the Seldinger technique. It withdrew blood and flushed easily. It was sutured in place. Dressings applied. Stat portable albin st x-ray was ordered. Patient tolerated procedure well with no apparent complications.
[2018-06-03] MEDS: HYDROMORPHONE HCL INJ/PF 2 MG/ML AMPULE IV PRN ×4 (08:30→22:00)
--- NOTE | 2018-06-03 08:52 | RADIOLOGY REPORT (SQ) ---
EXAM DESCRIPTION: CHEST SINGLE VIEW COMPLETED DATE/TIME: 06/03/2018 8:37 am REASON FOR STUDY: Central Line Placement COMPARISON: Chest films 04/07/2017, 06/03/2018 chest films 01/31/2016, 04/07/2017, 06/03/2018 EXAM PARAMETERS: NUMBER OF VIEWS: One view. TECHNIQUE: Single frontal radiographic view of the chest acquired. RADIATION DOSE: NA LIMITATIONS: None. FINDINGS: LUNGS AND PLEURA: No opacities, masses or pneumothorax. No pleural effusion. MEDIASTINUM AND HILAR STRUCTURES: Stable calcified hilar lymph nodes bilaterally HEART AND VASCULAR STRUCTURES: Mild cardiomegaly BONES: Advanced arthritis both shoulders HARDWARE: Right subclavian triple lumen catheter tip in the superior vena cava. No pneumothorax. Un changed left-sided dual lead pacemaker OTHER: No other significant finding. IMPRESSION: Placement of a right subclavian central line with the tip in the superior vena cava. No pneumothorax. TECHNICAL DOCUMENTATION: JOB ID: [id number] [employer]- All Rights Reserved Reading location - IP/workstation name: [email or web address]
[2018-06-03 09:47] LABS: ABSOLUTE LYMPHOCYTES (AUTO) 1.5 10^3/uL (0.5-4.7); ABSOLUTE MONOCYTES (AUTO) 0.3 10^3/uL (0.1-1.4); BASOPHILS % (AUTO) 0.2 % (0-2); EOSINOPHILS % (AUTO) 0.3 % (0-6); HEMATOCRIT 28.3 % (37.9-51.0); HEMOGLOBIN 9.6 g/dL (13.5-17.0); LYMPHOCYTES % (AUTO) 21.5 % (13-45); MEAN CORPUSCULAR HEMOGLOBIN 34.6 pg (27.0-33.4); MEAN CORPUSCULAR HGB CONC 33.9 g/dL (32.0-36.0); MEAN CORPUSCULAR VOLUME 102 fl (80-97); MONOCYTES % (AUTO) 4.2 % (3-13); RED BLOOD COUNT 2.78 10^6/uL (4.35-5.55); RED CELL DISTRIBUTION WIDTH 15.9 % (11.5-14.0); SEGMENTED NEUTROPHILS % (AUTO) 73.8 % (42-78); TOTAL CELLS COUNTED % (AUTO) 100 %; WHITE BLOOD COUNT 6.8 10^3/uL (4.0-10.5)
[2018-06-03] MEDS ORDERED: NEBIVOLOL HCL 10 MG TABLET PO SCH (10:00)
[2018-06-03] MEDS ORDERED: PRAMIPEXOLE DI-HCL 0.5 MG TABLET PO SCH (10:00)
[2018-06-03] MEDS ORDERED: TAMSULOSIN HCL 0.4 MG CAP.SR.24H PO SCH (10:00)
[2018-06-03] MEDS ORDERED: HYDROCORTISONE SOD SUCCINATE INJ/PF 100 MG/2 ML SDV IV SCH (10:00)
[2018-06-03] MEDS ORDERED: CLINDAMYCIN PHOSPHATE 750 MG in DEXTROSE 5%-WATER 100 ML IV SCH (10:00)
[2018-06-03] MEDS ORDERED: CLINDAMYCIN 900 MG/D5W RTU 900 MG/50 ML RTUPB IV SCH (10:00)
[2018-06-03 10:16] LABS: PLATELET COUNT 57 10^3/uL (150-450)
[2018-06-03 10:17] LABS: ALANINE AMINOTRANSFERASE 30 U/L (21-72); ALBUMIN 2.7 g/dL (3.5-5.0); ALKALINE PHOSPHATASE 48 U/L (38-126); ANION GAP 7 (5-19); ASPARTATE AMINO TRANSFERASE 35 U/L (17-59); BILIRUBIN,DIRECT 0.3 mg/dL (0.0-0.4); BILIRUBIN,TOTAL 1.8 mg/dL (0.2-1.3); BLOOD UREA NITROGEN 61 mg/dL (7-20); CALCIUM 8.2 mg/dL (8.4-10.2); CARBON DIOXIDE 25 mmol/L (22-30); CHLORIDE 106 mmol/L (98-107); GLUCOSE 103 mg/dL (75-110); POTASSIUM 3.9 mmol/L (3.6-5.0); SODIUM 138.3 mmol/L (137-145); TOTAL PROTEIN 4.6 g/dL (6.3-8.2)
[2018-06-03] MEDS: DOFETILIDE 125 MCG CAPSULE PO SCH ×2 (11:35→17:36)
--- NOTE | 2018-06-03 12:00 | PDOC CONSULTATION ---
Consultation Consult Date: 06/03/18 Attending physician:: LANA WRIGHT Consult reason:: Medical management, Sepsis History of Present Illness Admission Date/PCP: 06/03/18 04:15 ISMAEL HARRIS MD Health Insurance Assessor: Drew Ivory in [place] Cardiothoracic surgeon: Jarett Degroot in [place] Oncologist: Dr. 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 General surgery admitted the patient and consulted the medicine service to follow along with him. Currently the patient is on broad-spectrum IV antibiotics. When I went to see the patient today he was quite somnolent. He would fall asleep in the middle of sentences. Initially I felt that he was encephalopathic however the came to provide further history and notes that he does this at home and has been doing this for quite some time. He will just fall asleep in the middle of a sentence. He has no history of any sort of hypercapnic respiratory failure. She states that he has been having worsening memory issues and just has not been himself for the past several months. She provided an accurate medication list which was quite helpful. I spent quite some time discussing the plan of care with her and all of her questions were answered. We are going to get records from both his primary care physician and his [facility] ologist. Past Medical History Cardiac Medical History: Reports: Atrial Fibrillation, Hyperlipidema, Hypertension Pulmonary Medical History: Reports: Sleep Apnea Neurological Medical History: Reports: Other - Chronic demyelinating polyneuropathy Endocrine Medical History: Reports: Hypothyroidism Renal/ Medical History: Reports: Chronic Kidney Disease Malignancy Medical History: Reports: Leukemia - CLL GI Medical History: Reports: None Musculoskeltal Medical History: Reports: Arthritis Musculoskeletal History Note: The reports that he has polymyalgia rheumatica for which he takes 15 mg of prednisone daily. He also has a history of rheumatoid arthritis. Psychiatric Medical History: Denies: Depression Traumatic Medical History: Reports: None Hematology: Reports: Anemia - Attributed to CLL, Other - CLL Infectious Medical History: Reports: None Past Surgical History Past Surgical History: Reports: Appendectomy, Herniorrhaphy - Left inguinal, Orthopedic Surgery - Right ankle reconstruction, multilevel spinal fusion, Vascular Surgery - Varicose vein surgery Social History Information Source: Patient, Relative Lives with: Spouse/Significant other Smoking Status: Former Smoker Frequency of Alcohol Use: Rare Hx Recreational Drug Use: No Drugs: None Hx Prescription Drug Abuse: No - Advance Directive Resuscitation Status: Full Code Surrogate healthcare decision maker:: His Family History Family History: CAD, Other - Alzheimer's Parental Family History Reviewed: Yes Children Family History Reviewed: Yes Sibling(s) Family History Reviewed.: Yes Medication/Allergy Home Medications: Furosemide 20 mg PO DAILY 04/07/17 Levothyroxine Sodium [Synthroid 0.1 mg Tablet] 0.1 mg PO DAILY 04/07/17 Aspirin [Ecotrin] 81 mg PO DAILY 06/03/18 Dofetilide [Tikosyn 125 Mcg Capsule] 125 mcg PO Q12 06/03/18 Esomeprazole Magnesium [Nexium] 20 mg PO DAILY 06/03/18 Nebivolol HCl [Bystolic 10 mg Tablet] 10 mg PO Q12 06/03/18 Pramipexole Di-HCl [Mirapex 0.5 Mg Tablet] 0.5 mg PO QHS 06/03/18 Prednisone [Deltasone 10 mg Tablet] 15 mg PO DAILY 06/03/18 Tamsulosin HCl [Flomax 0.4 mg Cap.sr] 0.4 mg PO QPM 06/03/18 Allergies/Adverse Reactions: NSAIDS (Non-Steroidal Anti-Inflamma Adverse Reaction (Intermediate, Verified 01/30/16 23:41) Review of Systems ROS unobtainable: Due to mental status - The patient was quite somnolent. Physical Exam Vital Signs: Temp Pulse Resp BP Pulse Ox 99.1 F 60 22 H 106/71 95 06/03/18 08:59 06/03/18 10:00 06/03/18 10:00 06/03/18 10:00 06/03/18 10:00 Intake & Output 06/02/18 06/03/18 06/04/18 06:59 06:59 06:59 Intake Total 3107 100 Output Total 125 Balance 3107 -25 Weight 116 kg 110.7 kg General appearance: PRESENT: other - Chronically ill-appearing gentleman. He is quite somnolent. He will wake up and be talking appropriately and then fall right to sleep. He cannot stay awake long enough to get a good review of systems Head exam: PRESENT: atraumatic, normocephalic Mouth exam: PRESENT: moist, tongue midline Respiratory exam: PRESENT: clear to auscultation lo, decreased breath sounds - He has diminished in the lower bases bilaterally, tachypnea, other - His lungs sound fairly clear although he really is not cooperating for exam. He is some what tachypneic. ABSENT: rales, rhonchi, wheezes Cardiovascular exam: PRESENT: RRR. ABSENT: diastolic murmur, rubs, systolic murmur Pulses: PRESENT: other - Difficult to palpate pulses in his left lower extremity which is somewhat cool. GI/Abdominal exam: PRESENT: normal bowel sounds, soft. ABSENT: distended, guarding, mass, organolmegaly, rebound, tenderness Rectal exam: PRESENT: deferred Extremities exam: PRESENT: full ROM, +2 edema - Left lower extremity has at vee st 2+ pitting edema. The the foot and lower leg is quite cool to the touch. It is difficult to palpate pulses although the nursing staff states that they can get pulses with the ultrasound. Right lower extremity has angry erythema from the foot to just below the knee. It is hot and warm and quite swollen. ABSENT: calf tenderness, clubbing, pedal edema Neurological exam: PRESENT: alert, awake, oriented to person, oriented to place, CN II-XII grossly intact. ABSENT: oriented to time, oriented to situation, motor sensory deficit Psychiatric exam: PRESENT: appropriate affect, normal mood, other - However he is quite somnolent and falls asleep. ABSENT: homicidal ideation, suicidal ideation Skin exam: PRESENT: dry, intact, warm. ABSENT: cyanosis, rash Results Laboratory Results: 06/03/18 09:27 06/03/18 09:27 06/03/18 06/03/18 06/03/18 00:40 00:40 00:40 WBC 4.1 RBC 2.79 L Hgb 9.6 L Hct 28.1 L MCV 101 H MCH 34.5 H MCHC 34.3 RDW 15.5 H Plt Count 58 L Seg Neutrophils % Not Reportable Lymphocytes % Not Reportable Monocytes % Not Reportable Eosinophils % Not Reportable Basophils % Not Reportable Absolute Neutrophils Not Reportable Absolute Lymphocytes Not Reportable Absolute Monocytes Not Reportable Absolute Eosinophils Not Reportable Absolute Basophils Not Reportable VBG pH VBG pCO2 VBG HCO3 VBG Base Excess Sodium 136.9 L Potassium 3.8 Chloride 103 Carbon Dioxide 28 Anion Gap 6 BUN 67 H Creatinine 2.24 H Est GFR ( Amer) 34 L Est GFR (Non-Af Amer) 28 L Glucose 135 H Lactic Acid 1.4 Calcium 8.8 Total Bilirubin 1.5 H AST 28 ALT 37 Alkaline Phosphatase 57 Total Protein 5.0 L Albumin 3.0 L Urine Color Urine Appearance Urine pH Ur Specific [place] Urine Protein Urine Glucose (UA) Urine Ketones Urine Blood Urine Nitrite Ur Leukocyte Esterase Urine WBC (Auto) Urine RBC (Auto) 06/03/18 06/03/18 06/03/18 00:40 04:35 09:27 WBC 6.8 RBC 2.78 L Hgb 9.6 L Hct 28.3 L MCV 102 H MCH 34.6 H MCHC 33.9 RDW 15.9 H Plt Count 57 L Seg Neutrophils % 73.8 Lymphocytes % 21.5 Monocytes % 4.2 Eosinophils % 0.3 Basophils % 0.2 Absolute Neutrophils 5.0 Absolute Lymphocytes 1.5 Absolute Monocytes 0.3 Absolute Eosinophils 0.0 Absolute Basophils 0.0 VBG pH 7.44 H VBG pCO2 39.7 VBG HCO3 26.2 VBG Base Excess 1.9 Sodium Potassium Chloride Carbon Dioxide Anion Gap BUN Creatinine Est GFR ( Amer) Est GFR (Non-Af Amer) Glucose Lactic Acid Calcium Total Bilirubin AST ALT Alkaline Phosphatase Total Protein Albumin Urine Color YELLOW Urine Appearance CLEAR Urine pH 5.0 Ur Specific [place] 1.017 Urine Protein 100 H Urine Glucose (UA) NEGATIVE Urine Ketones NEGATIVE Urine Blood NEGATIVE Urine Nitrite NEGATIVE Ur Leukocyte Esterase NEGATIVE Urine WBC (Auto) 0 Urine RBC (Auto) 0 06/03/18 09:27 WBC RBC Hgb Hct MCV MCH MCHC RDW Plt Count Seg Neutrophils % Lymphocytes % Monocytes % Eosinophils % Basophils % Absolute Neutrophils Absolute Lymphocytes Absolute Monocytes Absolute Eosinophils Absolute Basophils VBG pH VBG pCO2 VBG HCO3 VBG Base Excess Sodium 138.3 Potassium 3.9 Chloride 106 Carbon Dioxide 25 Anion Gap 7 BUN 61 H Creatinine 1.96 H Est GFR ( Amer) 40 L Est GFR (Non-Af Amer) 33 L Glucose 103 Lactic Acid Calcium 8.2 L Total Bilirubin 1.8 H AST 35 ALT 30 Alkaline Phosphatase 48 Total Protein 4.6 L Albumin 2.7 L Urine Color Urine Appearance Urine pH Ur Specific [place] Urine Protein Urine Glucose (UA) Urine Ketones Urine Blood Urine Nitrite Ur Leukocyte Esterase Urine WBC (Auto) Urine RBC (Auto) Impressions: Lower Extremity CT 06/03/18 01:27 IMPRESSION: Moderate, extensive subcutaneous edema/cellulitis of the right lower extremity. Chest X-Ray 06/03/18 08:13 IMPRESSION: Placement of a right subclavian central line with the tip in the superior vena cava. No pneumothorax. Assessment and Plan - Diagnosis (1) Sepsis Qualifiers: Sepsis type: sepsis due to unspecified organism Qualified Code(s): A41.9 - Sepsis, unspecified organism Is this a current diagnosis for this admission?: Yes Plan: Present on admission manifested by fever, tachycardia, acute encephalopathy, acute renal failure, elevated bilirubin, worsening thrombocytopenia and evidence of infection with cellulitis. He currently is on levophed which we will wean as tolerated. Continue broad-spectrum antibiotics for his cellulitis. Due to his chronic steroid use I am going to place him on stress dose steroids. (2) Acute metabolic encephalopathy Is this a current diagnosis for this admission?: Yes Plan: Secondary to sepsis. I also am concerned that he seems appropriate and then falls asleep that he could be retaining CO2. He is somewhat tachypneic today during my visit. I am going to get an ABG just to be on the safe side. (3) Cellulitis Is this a current diagnosis for this admission?: Yes Plan: Currently on IV vancomycin and Zosyn. I am going to try to get in touch with infectious disease in [place] to see if they would make any further recommendations. CT scan revealed evidence of cellulitis but no underlying abscess. (4) Acute on chronic renal failure Is this a current diagnosis for this admission?: Yes Plan: Likely due to sepsis. He is receiving IV fluids and he will have a chemistry panel drawn in the morning (5) Persistent atrial fibrillation Is this a current diagnosis for this admission?: Yes Plan: Continue Tikosyn. Currently in a sinus rhythm and rate controlled (6) Sleep apnea Is this a current diagnosis for this admission?: Yes Plan: Long-standing history of sleep apnea. He does not tolerate CPAP and this is untreated. (7) Chronic lymphocytic leukemia Is this a current diagnosis for this admission?: Yes Plan: He follows with Dr. Anguiano in [place]. Usually his platelet level is around 90. Currently his platelet level is lower likely due to sepsis (8) Rheumatoid arthritis Is this a current diagnosis for this admission?: Yes Plan: He is on chronic steroid therapy. Currently at 15 mg a day. The states that when he drops back less than 10 mg a day he usually has increased pain. Certainly this makes him more immunosuppressed. I am going to place him on stress dose steroids with hydrocortisone 100 mg every 8 hours (9) Polymyalgia rheumatica Is this a current diagnosis for this admission?: Yes Plan: As above. He is steroid dependent (10) Anemia Is this a current diagnosis for this admission?: Yes Plan: He has chronic lymphocytic leukemia as well as an anemia of chronic disease. He will have a CBC drawn in the morning. (11) Thrombocytopenia Is this a current diagnosis for this admission?: Yes Plan: His baseline platelet level is around 90. Currently much lower than that at 57. This is likely due to sepsis. He will have a CBC drawn in the morning. (12) BPH (benign prostatic hyperplasia) Is this a current diagnosis for this admission?: Yes Plan: When his pressure improves we can place him back on Flomax (13) Memory deficits Is this a current diagnosis for this admission?: Yes Plan: According to the the patient has a strong family history of underlying Alzheimer's dementia. He has been having some deficits lately and he should be worked up as an outpatient. (14) Hypothyroid Is this a current diagnosis for this admission?: Yes Plan: Continue Synthroid (15) Full code status Is this a current diagnosis for this admission?: Yes - Time Time Spent with patient: 25-34 minutes - Inpatient Certification Medical Necessity: Other - The patient currently is in the ICU on pressors requiring parenteral antibiotics. We are consulted to help manage the patient during his acute illness and sepsis. Clearly he will require several days in the hospital. Sound hospitalist will continue to follow along with you.
[2018-06-03 12:11] LABS: ARTERIAL BLOOD BASE EXCESS -1.8 mmol/L; ARTERIAL BLOOD H2CO3 1.03 mmol/L (1.05-1.35); ARTERIAL BLOOD O2 SATURATION 95.7 % (94-98); ARTERIAL BLOOD PCO2 34.2 mmHg (35-45); ARTERIAL BLOOD PH 7.43 (7.35-7.45); ARTERIAL BLOOD PO2 76.5 mmHg (80-100); ARTERIAL BLOOD TOTAL CO2 23.1 mmol/L (23-27)
[2018-06-03 12:12] LABS: ARTERIAL BLOOD FIO2 21%
[2018-06-03] MEDS: HYDROCORTISONE SOD SUCCINATE INJ/PF 100 MG/2 ML SDV IV SCH ×3 (12:36→21:59)
[2018-06-03] MEDS ORDERED: HYDROMORPHONE HCL INJ/PF 2 MG/ML AMPULE IV SCH (14:00)
--- NOTE | 2018-06-03 15:23 | Progress Note ---
Provider Note Provider Note: ID Consult Note Asked to review patient's chart by Dr Pennington. Pt not seen or examined. Reviewed VS, labs, imaging, provider notes. 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 Pt came to hospital today 06/03 due to generalized weakness. BLE edema worsened recently along with beefy red discoloration of RLE. No drainage was noted. On exam pt was noted to have marked edema of his legs, 2+ pitting edema, beefy red erythema of the RLE with tenderness and no fluctuance or drainage. Medicine consultation was requested - noted RLE as having angry erythema from foot to just below the knee with increased warmth and swelling. Labs on presentation included thrombocytopenia, macrocytic anemia, elevated indirect bilirubin, initial SCr 2.2. Blood cultures were ordered and are pending. CT RLE w/o IV contrast was also performed, read as showing circumferential soft tissue edema without drainable collection or abscess. Empirically IV clindamycin and IV Zosyn were started. Impression RLE nonpurulent cellulitis superimposed on chronic venous insufficiency and likely stasis dermatitis - Stasis dermatitis seems likely based on the increased pigmentation noted in contralateral leg - Beta hemolytic streptococci primarily account for cellulitis that is diffusely erythematous, not associated with a defined exposure (e.g. dog bite, crabbing) and lacking a purulent focus or portal. - Cutaneous inflammation often initially worsens before stabilization and improvement are seen, which is thought to be related to antibiotics lysing bacteria and releasing inflammatory substances. - He has multiple comorbidities that predispose him to cellulitis and that will likely make this slow to improve. Recommendations - Would discontinue clindamycin and Zosyn. He does not have exposure hx or risk factors that indicate anaerobic, gram- negative, or MRSA activity is likely to be needed. The disadvantage to broad spectrum antibiotics is the bystander damage done to the microbiome including gut dysbiosis and risk for C diff infection developing. With gastric acid suppression and steroid use, he is already more predisposed to C diff. - Recommend Ancef 2 grams q8h IV as long as creatinine clearance is over 30. - If not already done, RLE should be elevated to promote gravity drainage of inflammatory substances and edema. - If there is anything that can be done to reduce stasis dermatitis and the peripheral edema in his legs it should be investigated because these conditions predisponse him to cellulitis. If pt has evidence of tinea pedis on exam, treating this should be pursued since streptococci often resides in fissured or macerated toe web spaces. Raúl Gatica MD [facility] Infectious Diseases pager [phone]
--- NOTE | 2018-06-03 17:11 | PDOC PROGRESS REPORT ---
Subjective Progress Note for:: 06/03/18 Subjective:: feels better. much more alert Reason For Visit: SEPSIS. CELLULITIS. Physical Exam Vital Signs: Temp Pulse Resp BP Pulse Ox 98.6 F 67 21 H 110/66 95 06/03/18 16:00 06/03/18 16:00 06/03/18 16:00 06/03/18 16:00 06/03/18 16:00 Intake & Output 06/02/18 06/03/18 06/04/18 06:59 06:59 06:59 Intake Total 3107 250 Output Total 950 Balance 3107 -700 Weight 116 kg 110.7 kg General appearance: PRESENT: no acute distress, cooperative Eye exam: PRESENT: conjunctiva pink Respiratory exam: PRESENT: clear to auscultation lo Cardiovascular exam: PRESENT: RRR GI/Abdominal exam: PRESENT: other - soft, non distended, non tender. Extremities exam: PRESENT: other - right lower leg with beefy red diffuse erythema and edema. no significant change from last night. certainly not worsening. tender with no crepitus and no blistering. Neurological exam: PRESENT: alert, awake Psychiatric exam: PRESENT: appropriate affect Results Laboratory Results: 06/03/18 09:27 06/03/18 09:27 06/03/18 06/03/18 06/03/18 00:40 00:40 00:40 WBC 4.1 RBC 2.79 L Hgb 9.6 L Hct 28.1 L MCV 101 H MCH 34.5 H MCHC 34.3 RDW 15.5 H Plt Count 58 L Seg Neutrophils % Not Reportable Lymphocytes % Not Reportable Monocytes % Not Reportable Eosinophils % Not Reportable Basophils % Not Reportable Absolute Neutrophils Not Reportable Absolute Lymphocytes Not Reportable Absolute Monocytes Not Reportable Absolute Eosinophils Not Reportable Absolute Basophils Not Reportable Carbonic Acid HCO3/H2CO3 Ratio ABG pH ABG pCO2 ABG pO2 ABG HCO3 ABG O2 Saturation ABG Base Excess VBG pH VBG pCO2 VBG HCO3 VBG Base Excess FiO2 Sodium 136.9 L Potassium 3.8 Chloride 103 Carbon Dioxide 28 Anion Gap 6 BUN 67 H Creatinine 2.24 H Est GFR ( Amer) 34 L Est GFR (Non-Af Amer) 28 L Glucose 135 H Lactic Acid 1.4 Calcium 8.8 Total Bilirubin 1.5 H AST 28 ALT 37 Alkaline Phosphatase 57 Total Protein 5.0 L Albumin 3.0 L Urine Color Urine Appearance Urine pH Ur Specific [place] Urine Protein Urine Glucose (UA) Urine Ketones Urine Blood Urine Nitrite Ur Leukocyte Esterase Urine WBC (Auto) Urine RBC (Auto) 06/03/18 06/03/18 06/03/18 00:40 04:35 09:27 WBC 6.8 RBC 2.78 L Hgb 9.6 L Hct 28.3 L MCV 102 H MCH 34.6 H MCHC 33.9 RDW 15.9 H Plt Count 57 L Seg Neutrophils % 73.8 Lymphocytes % 21.5 Monocytes % 4.2 Eosinophils % 0.3 Basophils % 0.2 Absolute Neutrophils 5.0 Absolute Lymphocytes 1.5 Absolute Monocytes 0.3 Absolute Eosinophils 0.0 Absolute Basophils 0.0 Carbonic Acid HCO3/H2CO3 Ratio ABG pH ABG pCO2 ABG pO2 ABG HCO3 ABG O2 Saturation ABG Base Excess VBG pH 7.44 H VBG pCO2 39.7 VBG HCO3 26.2 VBG Base Excess 1.9 FiO2 Sodium Potassium Chloride Carbon Dioxide Anion Gap BUN Creatinine Est GFR ( Amer) Est GFR (Non-Af Amer) Glucose Lactic Acid Calcium Total Bilirubin AST ALT Alkaline Phosphatase Total Protein Albumin Urine Color YELLOW Urine Appearance CLEAR Urine pH 5.0 Ur Specific [place] 1.017 Urine Protein 100 H Urine Glucose (UA) NEGATIVE Urine Ketones NEGATIVE Urine Blood NEGATIVE Urine Nitrite NEGATIVE Ur Leukocyte Esterase NEGATIVE Urine WBC (Auto) 0 Urine RBC (Auto) 0 06/03/18 06/03/18 09:27 11:50 WBC RBC Hgb Hct MCV MCH MCHC RDW Plt Count Seg Neutrophils % Lymphocytes % Monocytes % Eosinophils % Basophils % Absolute Neutrophils Absolute Lymphocytes Absolute Monocytes Absolute Eosinophils Absolute Basophils Carbonic Acid 1.03 L HCO3/H2CO3 Ratio 21:1 ABG pH 7.43 ABG pCO2 34.2 L ABG pO2 76.5 L ABG HCO3 22.0 ABG O2 Saturation 95.7 ABG Base Excess -1.8 VBG pH VBG pCO2 VBG HCO3 VBG Base Excess FiO2 21% Sodium 138.3 Potassium 3.9 Chloride 106 Carbon Dioxide 25 Anion Gap 7 BUN 61 H Creatinine 1.96 H Est GFR ( Amer) 40 L Est GFR (Non-Af Amer) 33 L Glucose 103 Lactic Acid Calcium 8.2 L Total Bilirubin 1.8 H AST 35 ALT 30 Alkaline Phosphatase 48 Total Protein 4.6 L Albumin 2.7 L Urine Color Urine Appearance Urine pH Ur Specific [place] Urine Protein Urine Glucose (UA) Urine Ketones Urine Blood Urine Nitrite Ur Leukocyte Esterase Urine WBC (Auto) Urine RBC (Auto) Impressions: Lower Extremity CT 06/03/18 01:27 IMPRESSION: Moderate, extensive subcutaneous edema/cellulitis of the right lower extremity. Chest X-Ray 06/03/18 08:13 IMPRESSION: Placement of a right subclavian central line with the tip in the superior vena cava. No pneumothorax. Assessment & Plan - Diagnosis (1) Sepsis Qualifiers: Sepsis type: sepsis due to unspecified organism Qualified Code(s): A41.9 - Sepsis, unspecified organism Is this a current diagnosis for this admission?: Yes Plan: much improved. off pressors. cellulitis in background of chronic venous stasis. ID consult noted. ID recommended d/c zosyn and clinda and starting ancef. reasonable with his improvement and necrotizing fascitis being highly unlikely. start clears. may be able to transfer to floor in am if he continues to improve.
[2018-06-03] MEDS ORDERED: CEFAZOLIN 2 GM/D5W RTU 2 GM/50 ML RTUPB IV SCH (17:30)
[2018-06-03] MEDS: CEFAZOLIN SODIUM 2 GM in DEXTROSE 5%-WATER 100 ML IV SCH (17:43)
--- NOTE | 2018-06-03 21:20 | EKG REPORT ---
SEVERITY:- ABNORMAL ECG - SINUS RHYTHM FIRST DEGREE AV BLOCK : Confirmed by: Alison Tamayo MD 03-Jun-2018 21:19:48
[2018-06-04] MEDS: CEFAZOLIN SODIUM 2 GM in DEXTROSE 5%-WATER 100 ML IV SCH ×3 (02:03→18:04)
[2018-06-04] MEDS: HYDROMORPHONE HCL INJ/PF 2 MG/ML AMPULE IV PRN ×2 (02:04→06:29)
[2018-06-04 03:35] LABS: ABSOLUTE LYMPHOCYTES (AUTO) 1.5 10^3/uL (0.5-4.7); ABSOLUTE MONOCYTES (AUTO) 0.2 10^3/uL (0.1-1.4); ABSOLUTE NEUT (AUTO) 5.4 10^3/uL (1.7-8.2); BASOPHILS % (AUTO) 0.1 % (0-2); HEMATOCRIT 28.4 % (37.9-51.0); HEMOGLOBIN 9.6 g/dL (13.5-17.0); LYMPHOCYTES % (AUTO) 20.8 % (13-45); MEAN CORPUSCULAR HEMOGLOBIN 34.8 pg (27.0-33.4); MEAN CORPUSCULAR VOLUME 102 fl (80-97); MONOCYTES % (AUTO) 3.3 % (3-13); RED BLOOD COUNT 2.77 10^6/uL (4.35-5.55); RED CELL DISTRIBUTION WIDTH 15.8 % (11.5-14.0); SEGMENTED NEUTROPHILS % (AUTO) 75.8 % (42-78); TOTAL CELLS COUNTED % (AUTO) 100 %; WHITE BLOOD COUNT 7.2 10^3/uL (4.0-10.5)
[2018-06-04 03:52] LABS: PLATELET COUNT 52 10^3/uL (150-450)
[2018-06-04 03:53] LABS: ALANINE AMINOTRANSFERASE 34 U/L (21-72); ALBUMIN 2.7 g/dL (3.5-5.0); ALKALINE PHOSPHATASE 50 U/L (38-126); ANION GAP 8 (5-19); ASPARTATE AMINO TRANSFERASE 38 U/L (17-59); BILIRUBIN,DIRECT 0.3 mg/dL (0.0-0.4); BILIRUBIN,TOTAL 0.7 mg/dL (0.2-1.3); BLOOD UREA NITROGEN 53 mg/dL (7-20); CALCIUM 8.5 mg/dL (8.4-10.2); CARBON DIOXIDE 23 mmol/L (22-30); CHLORIDE 105 mmol/L (98-107); GLUCOSE 164 mg/dL (75-110); POTASSIUM 3.9 mmol/L (3.6-5.0); SODIUM 135.5 mmol/L (137-145); TOTAL PROTEIN 4.8 g/dL (6.3-8.2)
[2018-06-04] MEDS: NORMAL SALINE 1000 ML 1,000 ML IV PRN ×2 (04:23→13:15)
[2018-06-04] MEDS: PANTOPRAZOLE SODIUM 20 MG TABLET.DR PO SCH (05:29)
[2018-06-04] MEDS: LEVOTHYROXINE SODIUM 0.1 MG TABLET PO SCH (05:29)
[2018-06-04] MEDS: HYDROCORTISONE SOD SUCCINATE INJ/PF 100 MG/2 ML SDV IV SCH ×3 (05:30→21:16)
--- NOTE | 2018-06-04 07:52 | XCELERA REPORT ---
[address] [address] Lower Extremity Arterial Evaluation Name: ELOY ARNOLDROSAURA JR Age: 83 yrs Gender: Male : 1935 Patient Status: Inpatient Patient Location: ICU^[id number] Study Date: 06/03/2018 03:59 PM Procedure: A color flow and duplex scan of the lower extremity arteries was performed bilaterally with velocity and waveform anaylsis. Reason For Study: cellulitis, suspect PAD Ordering Physician: TEAGAN DON Performed By: Radha Lemus Measurements and Calculations Right Left C.O.D. AUDIT CLERK PSV 134.1 94.3 cm/sec Prox PFA PSV -71.5 109.7 cm/sec Prox SFA PSV 82.2 108.6 cm/sec Mid SFA PSV -104.8 -80.3 cm/sec Dist SFA PSV -245.5 -109.7cm/sec Prox Pop A PSV 108.7 76.6 cm/sec Dist SAURABH PSV 50.3 120.2 cm/sec Dist WELDER FIRST CLASS PSV 142.5 111.9 cm/sec Thierry Pedis PSV -50.9 111.9 cm/sec Right Side Arterial Evaluation Normal velocity and triphasic waveforms noted in the Common Femoral artery. . Biphasic with normal velocity from the Femoral to the infrageniculate vessels. An area of stenosis in the distal Femoral artery is noted, with greater than 2 x adjacent velocity. Ankle Brachial index not obtained. Left Side Arterial Evaluation Normal velocity and triphasic waveforms noted from the Common Femoral artery to the infrageniculate vessels . Ankle Brachial index not obtained . Interpretation Summary Moderate hemodynamically significant lesions in the right lower extremity only, on duplex imaging, at rest. No hemodynamically significant lesions in the left lower extremity only, on duplex imaging, at rest. A focal stenosis in the right Femoral artery as noted. : TEAGAN DON > Ángel Horne
--- NOTE | 2018-06-04 10:22 | PDOC PROGRESS REPORT ---
Subjective Progress Note for:: 06/04/18 Subjective:: Feels much better. Had some confusion last night with the Dilaudid. Having some right leg pain. Reason For Visit: SEPSIS. CELLULITIS. Physical Exam Vital Signs: Temp Pulse Resp BP Pulse Ox 98.6 F 69 18 128/83 H 97 06/04/18 08:00 06/04/18 08:00 06/04/18 08:00 06/04/18 08:00 06/04/18 08:00 Intake & Output 06/03/18 06/04/18 06/05/18 06:59 06:59 06:59 Intake Total 3107 2470 Output Total 1975 200 Balance 3107 495 -200 Weight 116 kg 113.4 kg General appearance: PRESENT: no acute distress, cooperative Respiratory exam: PRESENT: clear to auscultation lo Cardiovascular exam: PRESENT: RRR Extremities exam: PRESENT: other - Right lower leg with diffuse beefy red erythema and edema that appears moderately improved from admission. Results Laboratory Results: 06/04/18 03:23 06/04/18 03:23 06/03/18 06/03/18 06/04/18 09:27 11:50 03:23 WBC 7.2 RBC 2.77 L Hgb 9.6 L Hct 28.4 L MCV 102 H MCH 34.8 H MCHC 34.0 RDW 15.8 H Plt Count 52 L Seg Neutrophils % 75.8 Lymphocytes % 20.8 Monocytes % 3.3 Eosinophils % 0.0 Basophils % 0.1 Absolute Neutrophils 5.4 Absolute Lymphocytes 1.5 Absolute Monocytes 0.2 Absolute Eosinophils 0.0 Absolute Basophils 0.0 Carbonic Acid 1.03 L HCO3/H2CO3 Ratio 21:1 ABG pH 7.43 ABG pCO2 34.2 L ABG pO2 76.5 L ABG HCO3 22.0 ABG O2 Saturation 95.7 ABG Base Excess -1.8 FiO2 21% Sodium 138.3 Potassium 3.9 Chloride 106 Carbon Dioxide 25 Anion Gap 7 BUN 61 H Creatinine 1.96 H Est GFR ( Amer) 40 L Est GFR (Non-Af Amer) 33 L Glucose 103 Calcium 8.2 L Total Bilirubin 1.8 H AST 35 ALT 30 Alkaline Phosphatase 48 Total Protein 4.6 L Albumin 2.7 L 06/04/18 03:23 WBC RBC Hgb Hct MCV MCH MCHC RDW Plt Count Seg Neutrophils % Lymphocytes % Monocytes % Eosinophils % Basophils % Absolute Neutrophils Absolute Lymphocytes Absolute Monocytes Absolute Eosinophils Absolute Basophils Carbonic Acid HCO3/H2CO3 Ratio ABG pH ABG pCO2 ABG pO2 ABG HCO3 ABG O2 Saturation ABG Base Excess FiO2 Sodium 135.5 L Potassium 3.9 Chloride 105 Carbon Dioxide 23 Anion Gap 8 BUN 53 H Creatinine 1.88 H Est GFR ( Amer) 42 L Est GFR (Non-Af Amer) 35 L Glucose 164 H Calcium 8.5 Total Bilirubin 0.7 AST 38 ALT 34 Alkaline Phosphatase 50 Total Protein 4.8 L Albumin 2.7 L Impressions: Lower Extremity CT 06/03/18 01:27 IMPRESSION: Moderate, extensive subcutaneous edema/cellulitis of the right lower extremity. Chest X-Ray 06/03/18 08:13 IMPRESSION: Placement of a right subclavian central line with the tip in the superior vena cava. No pneumothorax. Assessment & Plan - Diagnosis (1) Sepsis Qualifiers: Sepsis type: sepsis due to unspecified organism Qualified Code(s): A41.9 - Sepsis, unspecified organism Is this a current diagnosis for this admission?: Yes Plan: Sepsis appears to have resolved. Continue antibiotics for his cellulitis. Will transfer the patient to the floor. (2) Cellulitis Qualifiers: Site of cellulitis of extremity: lower extremity Laterality: right Is this a current diagnosis for this admission?: Yes Plan: The appearance of the leg infection is slow to improve but he has had obvious improvement systemically. Will continue IV Ancef and will transfer patient to the floor. Will begin ambulation. Continue leg elevation.
[2018-06-04] MEDS: MUPIROCIN CALCIUM 2% CREAM 15 GM TP SCH (11:03)
[2018-06-04] MEDS: DOFETILIDE 125 MCG CAPSULE PO SCH ×2 (11:04→18:03)
[2018-06-04] MEDS ORDERED: OXYCODONE-ACETAMINOPHEN 5-325 MG TABLET PO PRN (13:54)
--- NOTE | 2018-06-04 15:00 | PDOC PROGRESS REPORT ---
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 Patient has patient has underlying bilateral venous stasis. At presentation patient was confused and febrile. Currently patient has been on cefazolin. This morning I seen patient resting in bed comfortably. He is awake alert oriented. Reason For Visit: SEPSIS. CELLULITIS. Physical Exam Vital Signs: Temp Pulse Resp BP Pulse Ox 98.8 F 81 25 H 139/76 H 100 06/04/18 14:16 06/04/18 12:00 06/04/18 14:16 06/04/18 14:16 06/04/18 14:16 Intake & Output 06/03/18 06/04/18 06/05/18 06:59 06:59 06:59 Intake Total 3107 2570 1100 Output Total 1975 375 Balance 3107 595 725 Weight 116 kg 113.4 kg General appearance: PRESENT: no acute distress Head exam: PRESENT: atraumatic Eye exam: PRESENT: conjunctiva pink Neck exam: ABSENT: carotid bruit, JVD, lymphadenopathy, thyromegaly Respiratory exam: PRESENT: clear to auscultation lo. ABSENT: rales, rhonchi, wheezes Cardiovascular exam: PRESENT: irregular rhythm Neurological exam: PRESENT: alert, awake, oriented to time, oriented to situation Results Laboratory Results: 06/04/18 03:23 06/04/18 03:23 06/04/18 06/04/18 03:23 03:23 WBC 7.2 RBC 2.77 L Hgb 9.6 L Hct 28.4 L MCV 102 H MCH 34.8 H MCHC 34.0 RDW 15.8 H Plt Count 52 L Seg Neutrophils % 75.8 Lymphocytes % 20.8 Monocytes % 3.3 Eosinophils % 0.0 Basophils % 0.1 Absolute Neutrophils 5.4 Absolute Lymphocytes 1.5 Absolute Monocytes 0.2 Absolute Eosinophils 0.0 Absolute Basophils 0.0 Sodium 135.5 L Potassium 3.9 Chloride 105 Carbon Dioxide 23 Anion Gap 8 BUN 53 H Creatinine 1.88 H Est GFR ( Amer) 42 L Est GFR (Non-Af Amer) 35 L Glucose 164 H Calcium 8.5 Total Bilirubin 0.7 AST 38 ALT 34 Alkaline Phosphatase 50 Total Protein 4.8 L Albumin 2.7 L Impressions: Lower Extremity CT 06/03/18 01:27 IMPRESSION: Moderate, extensive subcutaneous edema/cellulitis of the right lower extremity. Chest X-Ray 06/03/18 08:13 IMPRESSION: Placement of a right subclavian central line with the tip in the superior vena cava. No pneumothorax. Assessment and Plan - Diagnosis (1) Sepsis Is this a current diagnosis for this admission?: Yes Plan: Most probably the source of sepsis is his cellulitis. (2) Cellulitis Is this a current diagnosis for this admission?: Yes Plan: Continue current antibiotics. (3) Metabolic encephalopathy Is this a current diagnosis for this admission?: Yes Plan: Resolved (4) Atrial fibrillation Qualifiers: Atrial fibrillation type: persistent Qualified Code(s): I48.1 - Persistent atrial fibrillation Is this a current diagnosis for this admission?: Yes Plan: Rate controlled. (5) Chronic lymphocytic leukemia Is this a current diagnosis for this admission?: Yes Plan: In remission (6) Acute kidney injury superimposed on CKD Is this a current diagnosis for this admission?: Yes Plan: Improving his creatinine is trending down. (7) History of rheumatoid arthritis Is this a current diagnosis for this admission?: Yes Plan: In remission (8) Hypothyroidism Qualifiers: Hypothyroidism type: acquired Qualified Code(s): E03.9 - Hypothyroidism, unspecified Is this a current diagnosis for this admission?: Yes Plan: Continue Synthroid
[2018-06-04] MEDS: PRAMIPEXOLE DI-HCL 0.5 MG TABLET PO SCH (21:16)
[2018-06-05] MEDS ORDERED: CEFAZOLIN 2 GM/D5W RTU 0 GM/0 ML RTUPB IV ONE (04:07)
[2018-06-05] MEDS: CEFAZOLIN SODIUM 2 GM in DEXTROSE 5%-WATER 100 ML IV SCH ×3 (04:32→17:40)
[2018-06-05 05:51] LABS: ABSOLUTE MONOCYTES (AUTO) 0.3 10^3/uL (0.1-1.4); ABSOLUTE NEUT (AUTO) 6.2 10^3/uL (1.7-8.2); BASOPHILS % (AUTO) 0.1 % (0-2); HEMATOCRIT 27.8 % (37.9-51.0); HEMOGLOBIN 9.6 g/dL (13.5-17.0); LYMPHOCYTES % (AUTO) 23.9 % (13-45); MEAN CORPUSCULAR HEMOGLOBIN 34.6 pg (27.0-33.4); MEAN CORPUSCULAR HGB CONC 34.5 g/dL (32.0-36.0); MEAN CORPUSCULAR VOLUME 100 fl (80-97); MONOCYTES % (AUTO) 3.1 % (3-13); RED BLOOD COUNT 2.77 10^6/uL (4.35-5.55); RED CELL DISTRIBUTION WIDTH 15.5 % (11.5-14.0); SEGMENTED NEUTROPHILS % (AUTO) 72.9 % (42-78); TOTAL CELLS COUNTED % (AUTO) 100 %; WHITE BLOOD COUNT 8.5 10^3/uL (4.0-10.5)
[2018-06-05 06:09] LABS: ALANINE AMINOTRANSFERASE 28 U/L (21-72); ALBUMIN 2.7 g/dL (3.5-5.0); ALKALINE PHOSPHATASE 57 U/L (38-126); ANION GAP 9 (5-19); ASPARTATE AMINO TRANSFERASE 39 U/L (17-59); BILIRUBIN,DIRECT 0.3 mg/dL (0.0-0.4); BILIRUBIN,TOTAL 0.7 mg/dL (0.2-1.3); BLOOD UREA NITROGEN 48 mg/dL (7-20); CALCIUM 8.6 mg/dL (8.4-10.2); CARBON DIOXIDE 23 mmol/L (22-30); CHLORIDE 106 mmol/L (98-107); GLUCOSE 140 mg/dL (75-110); SODIUM 138.3 mmol/L (137-145); TOTAL PROTEIN 4.8 g/dL (6.3-8.2)
[2018-06-05] MEDS: LEVOTHYROXINE SODIUM 0.1 MG TABLET PO SCH (06:25)
[2018-06-05] MEDS: PANTOPRAZOLE SODIUM 20 MG TABLET.DR PO SCH (06:25)
[2018-06-05 06:29] LABS: PLATELET COUNT 54 10^3/uL (150-450)
[2018-06-05 06:34] LABS: POTASSIUM 3.7 mmol/L (3.6-5.0)
[2018-06-05] MEDS ORDERED: HYDROCORTISONE SOD SUCCINATE INJ/PF 100 MG/2 ML SDV ONE ×2 (06:42→22:25)
[2018-06-05] MEDS: HYDROCORTISONE SOD SUCCINATE INJ/PF 100 MG/2 ML SDV IV SCH ×2 (07:02→14:08)
--- NOTE | 2018-06-05 08:28 | PDOC PROGRESS REPORT ---
Subjective Progress Note for:: 06/05/18 Subjective:: Feels much better. Reason For Visit: SEPSIS. CELLULITIS. Physical Exam Vital Signs: Temp Pulse Resp BP Pulse Ox 97.7 F 67 18 146/78 H 97 06/05/18 07:30 06/05/18 07:30 06/05/18 04:00 06/05/18 07:30 06/05/18 07:30 Intake & Output 06/04/18 06/05/18 06/06/18 06:59 06:59 06:59 Intake Total 2570 2700 Output Total 1975 2085 Balance 595 615 Weight 113.4 kg 93.8 kg General appearance: PRESENT: no acute distress, cooperative Extremities exam: PRESENT: other - Right lower leg still markedly edematous but erythema less intense. Results Laboratory Results: 06/05/18 05:16 06/05/18 05:16 06/05/18 06/05/18 05:16 05:16 WBC 8.5 RBC 2.77 L Hgb 9.6 L Hct 27.8 L MCV 100 H MCH 34.6 H MCHC 34.5 RDW 15.5 H Plt Count 54 L Seg Neutrophils % 72.9 Lymphocytes % 23.9 Monocytes % 3.1 Eosinophils % 0.0 Basophils % 0.1 Absolute Neutrophils 6.2 Absolute Lymphocytes 2.0 Absolute Monocytes 0.3 Absolute Eosinophils 0.0 Absolute Basophils 0.0 Sodium 138.3 Potassium 3.7 Chloride 106 Carbon Dioxide 23 Anion Gap 9 BUN 48 H Creatinine 1.71 H Est GFR ( Amer) 47 L Est GFR (Non-Af Amer) 39 L Glucose 140 H Calcium 8.6 Total Bilirubin 0.7 AST 39 ALT 28 Alkaline Phosphatase 57 Total Protein 4.8 L Albumin 2.7 L Impressions: Lower Extremity CT 06/03/18 01:27 IMPRESSION: Moderate, extensive subcutaneous edema/cellulitis of the right lower extremity. Chest X-Ray 06/03/18 08:13 IMPRESSION: Placement of a right subclavian central line with the tip in the superior vena cava. No pneumothorax. Assessment & Plan - Diagnosis (1) Sepsis Qualifiers: Sepsis type: sepsis due to unspecified organism Qualified Code(s): A41.9 - Sepsis, unspecified organism Is this a current diagnosis for this admission?: Yes Plan: Resolved (2) Cellulitis Qualifiers: Site of cellulitis of extremity: lower extremity Laterality: right Is this a current diagnosis for this admission?: Yes Plan: Slowly improving. Would benefit from compression stockings. Patient has custom made [employer] stockings that he will ask his to bring in today. Will continue IV Ancef through today. Possible discharge home in the next couple of days with p.o. Keflex and compression stockings. IV fluids have been stopped. Patient's Lasix has been restarted. Will DC [place].
[2018-06-05] MEDS: MUPIROCIN CALCIUM 2% CREAM 15 GM TP SCH (09:29)
[2018-06-05] MEDS: DOFETILIDE 125 MCG CAPSULE PO SCH ×2 (09:29→17:40)
[2018-06-05] MEDS: FUROSEMIDE 20 MG TABLET PO SCH (09:29)
--- NOTE | 2018-06-05 12:55 | PDOC PROGRESS REPORT ---
Subjective Progress Note for:: 06/05/18 Subjective:: FEELS OK SOME WHEEZES Reason For Visit: SEPSIS. CELLULITIS. Physical Exam Vital Signs: Temp Pulse Resp BP Pulse Ox 98 F 72 16 142/84 H 97 06/05/18 12:00 06/05/18 12:00 06/05/18 12:00 06/05/18 12:00 06/05/18 07:30 Intake & Output 06/04/18 06/05/18 06/06/18 06:59 06:59 06:59 Intake Total 2570 2800 Output Total 1975 2085 Balance 595 715 Weight 113.4 kg 93.8 kg General appearance: PRESENT: no acute distress Head exam: PRESENT: normocephalic Eye exam: PRESENT: EOMI Mouth exam: PRESENT: moist Neck exam: PRESENT: full ROM Respiratory exam: PRESENT: wheezes Cardiovascular exam: PRESENT: RRR Pulses: PRESENT: normal radial pulses, normal femoral pulses GI/Abdominal exam: PRESENT: soft Rectal exam: PRESENT: deferred Extremities exam: PRESENT: other - RT LET WRAPED YESTERDAY BY DR TILLEY CHRONIC LYMPHEDEMA, Neurological exam: PRESENT: alert, awake, oriented to person, oriented to place, oriented to time, oriented to situation Skin exam: PRESENT: dry Results Laboratory Results: 06/05/18 05:16 06/05/18 05:16 06/05/18 06/05/18 06/05/18 05:16 05:16 05:16 WBC 8.5 RBC 2.77 L Hgb 9.6 L Hct 27.8 L MCV 100 H MCH 34.6 H MCHC 34.5 RDW 15.5 H Plt Count 54 L Seg Neutrophils % 72.9 Lymphocytes % 23.9 Monocytes % 3.1 Eosinophils % 0.0 Basophils % 0.1 Absolute Neutrophils 6.2 Absolute Lymphocytes 2.0 Absolute Monocytes 0.3 Absolute Eosinophils 0.0 Absolute Basophils 0.0 Sodium 138.3 Potassium 3.7 Chloride 106 Carbon Dioxide 23 Anion Gap 9 BUN 48 H Creatinine 1.71 H Est GFR ( Amer) 47 L Est GFR (Non-Af Amer) 39 L Glucose 140 H Calcium 8.6 Total Bilirubin 0.7 AST 39 ALT 28 Alkaline Phosphatase 57 C-Reactive Protein 239.0 H Total Protein 4.8 L Albumin 2.7 L 06/03/18 04:35 [place] Catheter Urine Culture - Final NO GROWTH 2 DAYS Impressions: Lower Extremity CT 06/03/18 01:27 IMPRESSION: Moderate, extensive subcutaneous edema/cellulitis of the right lower extremity. Chest X-Ray 06/03/18 08:13 IMPRESSION: Placement of a right subclavian central line with the tip in the superior vena cava. No pneumothorax. Assessment & Plan - Plan Summary Plan Summary: RIGHT LOWER EXT LMPHEDEMA WITH CELLULIITS NOW IMPROVED WITH ABX WILL CONT COMPRESSON DRESSING AND IV ABX DISUCSSED WHEEZING WITH MEDICAL PHYSICIAN ADRIA GIVEN WITH IMPROVEMENT POSSIBLE HOME ON FRIDAY ON PO KEFLEX.
--- NOTE | 2018-06-05 17:02 | PDOC PROGRESS REPORT ---
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 The patient was seen on morning rounds with his present. He was found sitting up to the edge of the bed comfortably on room air. He reports that he has slight wheezing yesterday, though this is improved after receiving Lasix this morning. He also reports improvement in his dependent edema. Overall, he reports that he is feeling well. He is noted to be somewhat confused believing that I work with a kitchen staff despite being redirected multiple times by both himself and his . Towards the end of our discussion, recognizes that I am part of the medical team and asks if I am here to provide surgical services to him. His appears comfortable by his disorientation and indicates that this is near his baseline. He denies fever, chills, chest pain, palpitations, dyspnea, cough, abdominal pain, nausea vomiting and diarrhea. He does report slight lower extremity discomfort, though states this is well controlled at present. He has no other questions or concerns at this time. No concerns per nursing. Reason For Visit: SEPSIS. CELLULITIS. Physical Exam Vital Signs: Temp Pulse Resp BP Pulse Ox 98 F 72 20 142/84 H 97 06/05/18 12:00 06/05/18 12:00 06/05/18 15:24 06/05/18 12:00 06/05/18 07:30 Intake & Output 06/04/18 06/05/18 06/06/18 06:59 06:59 06:59 Intake Total 2570 2800 Output Total 1975 2085 250 Balance 595 715 -250 Weight 113.4 kg 93.8 kg General appearance: PRESENT: no acute distress, cooperative, well-developed, well-nourished Head exam: PRESENT: atraumatic, normocephalic Eye exam: PRESENT: conjunctiva pink, EOMI, PERRLA. ABSENT: scleral icterus Ear exam: PRESENT: normal external ear exam Mouth exam: PRESENT: moist, tongue midline Neck exam: ABSENT: carotid bruit, JVD, lymphadenopathy, thyromegaly Respiratory exam: PRESENT: crackles - crackles noted to right base., symmetrical, unlabored, wheezes - Minimal. ABSENT: rales, rhonchi Cardiovascular exam: PRESENT: irregular rhythm. ABSENT: diastolic murmur, rubs, systolic murmur Pulses: PRESENT: normal dorsalis pedis pul Vascular exam: PRESENT: normal capillary refill GI/Abdominal exam: PRESENT: normal bowel sounds, soft. ABSENT: distended, guarding, mass, organolmegaly, rebound, tenderness Rectal exam: PRESENT: deferred Extremities exam: PRESENT: full ROM. ABSENT: calf tenderness, clubbing, pedal edema Neurological exam: PRESENT: alert, awake, oriented to person, oriented to place, oriented to time, oriented to situation, CN II-XII grossly intact. ABSENT: motor sensory deficit Psychiatric exam: PRESENT: appropriate affect, normal mood. ABSENT: homicidal ideation, suicidal ideation Skin exam: PRESENT: dry, warm, other - JENNIFER hose on left, right lower extremity specialty compression stocking. ABSENT: cyanosis, rash Results Laboratory Results: 06/05/18 05:16 06/05/18 05:16 06/05/18 06/05/18 06/05/18 05:16 05:16 05:16 WBC 8.5 RBC 2.77 L Hgb 9.6 L Hct 27.8 L MCV 100 H MCH 34.6 H MCHC 34.5 RDW 15.5 H Plt Count 54 L Seg Neutrophils % 72.9 Lymphocytes % 23.9 Monocytes % 3.1 Eosinophils % 0.0 Basophils % 0.1 Absolute Neutrophils 6.2 Absolute Lymphocytes 2.0 Absolute Monocytes 0.3 Absolute Eosinophils 0.0 Absolute Basophils 0.0 Sodium 138.3 Potassium 3.7 Chloride 106 Carbon Dioxide 23 Anion Gap 9 BUN 48 H Creatinine 1.71 H Est GFR ( Amer) 47 L Est GFR (Non-Af Amer) 39 L Glucose 140 H Calcium 8.6 Total Bilirubin 0.7 AST 39 ALT 28 Alkaline Phosphatase 57 C-Reactive Protein 239.0 H Total Protein 4.8 L Albumin 2.7 L 06/03/18 04:35 Waldrop Catheter Urine Culture - Final NO GROWTH 2 DAYS Impressions: Lower Extremity CT 06/03/18 01:27 IMPRESSION: Moderate, extensive subcutaneous edema/cellulitis of the right lower extremity. Chest X-Ray 06/03/18 08:13 IMPRESSION: Placement of a right subclavian central line with the tip in the superior vena cava. No pneumothorax. Assessment and Plan - Diagnosis (1) Sepsis Qualifiers: Sepsis type: sepsis due to unspecified organism Qualified Code(s): A41.9 - Sepsis, unspecified organism Is this a current diagnosis for this admission?: Yes Plan: Resolved; patient's vital signs are now stable, WBCs are normal, lactic acid normal, near baseline mentation. Sepsis, secondary to cellulitis, present on arrival evidenced by hypotension (89/46), tachypnea (RR 30), acute on chronic kidney injury (CR 2.24), and acute encephalopathy. Blood cultures have no growth at 48 hours. Urine culture has no growth at 2 days. Wound culture of right leg wound shows gram-positive cocci in chains, and two strains of gram-negative rods Patient was initially admitted to the ICU; has been downgraded to the medical floor. Surgery is primary; we are consulted for medical management. Currently on IV Ancef with plans to transition to p.o. Keflex for completion of antibiotic course post discharge. (2) Acute kidney injury superimposed on CKD Is this a current diagnosis for this admission?: Yes Plan: Baseline creatinine of 1.8. He was admitted with a creatinine of 2.24 which is trended down to 1.71 with resolution of sepsis and continue gentle IV fluids. Avoid nephrotoxic medications as able. Continue to monitor with daily chemistries. (3) Atrial fibrillation Qualifiers: Atrial fibrillation type: persistent Qualified Code(s): I48.1 - Persistent atrial fibrillation Is this a current diagnosis for this admission?: Yes Plan: Rate controlled on home dose Tikosyn. Patient is not a good candidate for chronic anticoagulation secondary to age, dementia, comorbities. (4) Cellulitis Qualifiers: Site of cellulitis: extremity Site of cellulitis of extremity: lower extremity Laterality: right Qualified Code(s): L03.115 - Cellulitis of right lower limb Is this a current diagnosis for this admission?: Yes Plan: Improved. Primary per surgery. Compression stocking in place by Dr. Horne. Continue antibiotics as above. (5) Chronic lymphocytic leukemia Is this a current diagnosis for this admission?: Yes Plan: He follows with Dr. Anguiano in [place]. Usually his platelet level is around 90. Currently his platelet level stable at 54; likely lower due to sepsis/acute infectious illness. (6) Hypothyroidism Qualifiers: Hypothyroidism type: acquired Qualified Code(s): E03.9 - Hypothyroidism, unspecified Is this a current diagnosis for this admission?: Yes Plan: Continue home dose Synthroid (7) Metabolic encephalopathy Is this a current diagnosis for this admission?: Yes Plan: Resolved. Secondary to sepsis. - Time Time Spent with patient: 15-24 minutes Medications reviewed and adjusted accordingly: Yes Anticipated discharge: Home with Homehealth Within: within 48 hours
[2018-06-05] MEDS ORDERED: PRAMIPEXOLE DI-HCL 0.5 MG TABLET ONE (22:23)
[2018-06-06] MEDS: HYDROCORTISONE SOD SUCCINATE INJ/PF 100 MG/2 ML SDV IV SCH ×2 (00:23→05:50)
[2018-06-06] MEDS: PRAMIPEXOLE DI-HCL 0.5 MG TABLET PO SCH (00:23)
[2018-06-06] MEDS: CEFAZOLIN SODIUM 2 GM in DEXTROSE 5%-WATER 100 ML IV SCH ×2 (02:18→09:28)
[2018-06-06] MEDS: PANTOPRAZOLE SODIUM 20 MG TABLET.DR PO SCH (05:50)
[2018-06-06] MEDS: LEVOTHYROXINE SODIUM 0.1 MG TABLET PO SCH (05:50)
[2018-06-06 06:43] LABS: ALANINE AMINOTRANSFERASE 29 U/L (21-72); ALBUMIN 2.7 g/dL (3.5-5.0); ALKALINE PHOSPHATASE 62 U/L (38-126); ANION GAP 8 (5-19); ASPARTATE AMINO TRANSFERASE 40 U/L (17-59); BILIRUBIN,DIRECT 0.3 mg/dL (0.0-0.4); BILIRUBIN,TOTAL 0.6 mg/dL (0.2-1.3); BLOOD UREA NITROGEN 50 mg/dL (7-20); CALCIUM 8.5 mg/dL (8.4-10.2); CARBON DIOXIDE 24 mmol/L (22-30); CHLORIDE 110 mmol/L (98-107); GLUCOSE 122 mg/dL (75-110); SODIUM 142.2 mmol/L (137-145); TOTAL PROTEIN 4.9 g/dL (6.3-8.2)
[2018-06-06 07:07] LABS: ABSOLUTE LYMPHOCYTES (AUTO) 2.2 10^3/uL (0.5-4.7); ABSOLUTE MONOCYTES (AUTO) 0.2 10^3/uL (0.1-1.4); ABSOLUTE NEUT (AUTO) 5.2 10^3/uL (1.7-8.2); HEMATOCRIT 25.9 % (37.9-51.0); LYMPHOCYTES % (AUTO) 28.6 % (13-45); MEAN CORPUSCULAR HEMOGLOBIN 34.8 pg (27.0-33.4); MEAN CORPUSCULAR HGB CONC 34.6 g/dL (32.0-36.0); MEAN CORPUSCULAR VOLUME 101 fl (80-97); RED BLOOD COUNT 2.58 10^6/uL (4.35-5.55); RED CELL DISTRIBUTION WIDTH 15.5 % (11.5-14.0); SEGMENTED NEUTROPHILS % (AUTO) 68.4 % (42-78); TOTAL CELLS COUNTED % (AUTO) 100 %; WHITE BLOOD COUNT 7.7 10^3/uL (4.0-10.5)
[2018-06-06 07:23] LABS: PLATELET COUNT 53 10^3/uL (150-450)
[2018-06-06] MEDS ORDERED: POTASSIUM CHLORIDE 10 MEQ CAPSULE.ER PO ONE (07:32)
[2018-06-06] MEDS ORDERED: POTASSIUM CHLORIDE 10 MEQ CAPSULE.ER PO PRN ×2 (09:00→13:00)
[2018-06-06] MEDS: DOFETILIDE 125 MCG CAPSULE PO SCH (09:28)
[2018-06-06] MEDS ORDERED: NEBIVOLOL HCL 10 MG TABLET PO SCH (10:00)
[2018-06-06] MEDS: FUROSEMIDE 20 MG TABLET PO SCH (10:19)
--- NOTE | 2018-06-06 10:32 | PDOC DISCHARGE SUMMARY ---
General - Admit/Disc Date/PCP Admission Date/Primary Care Provider: 06/03/18 04:15 ISMAEL HARRIS MD Discharge Date: 06/06/18 - Discharge Diagnosis (1) Acute kidney injury superimposed on CKD Is this a current diagnosis for this admission?: Yes (2) Cellulitis Is this a current diagnosis for this admission?: Yes (3) Chronic lymphocytic leukemia Is this a current diagnosis for this admission?: Yes (4) Sepsis Is this a current diagnosis for this admission?: Yes - Additional Information Resuscitation Status: Full Code Home Medications: Furosemide 20 mg PO DAILY 04/07/17 Levothyroxine Sodium [Synthroid 0.1 mg Tablet] 0.1 mg PO DAILY 04/07/17 Aspirin [Ecotrin] 81 mg PO DAILY 06/03/18 Dofetilide [Tikosyn 125 Mcg Capsule] 125 mcg PO Q12 06/03/18 Esomeprazole Magnesium [Nexium] 20 mg PO DAILY 06/03/18 Nebivolol HCl [Bystolic 10 mg Tablet] 10 mg PO Q12 06/03/18 Pramipexole Di-HCl [Mirapex 0.5 Mg Tablet] 0.5 mg PO QHS 06/03/18 Prednisone [Deltasone 10 mg Tablet] 15 mg PO DAILY 06/03/18 Tamsulosin HCl [Flomax 0.4 mg Cap.sr] 0.4 mg PO QPM 06/03/18 History of Present Illness History of Present Illness: ROSAURA LYONS JR is a 83 year old male admitted with sepsis, acute on chronic renal insufficiency, and cellulitis of the right lower extremity (likely due to abrasions from a fall). Patient had hypotension, oliguria, and sepsis. He was admitted to the intensive care unit and given IV fluids and IV antibiotics. Hospital Course Hospital Course: The patient was admitted to the hospital, IV fluids and antibiotics were administered. The patient slowly began improving. His vasopressors were weaned off. Wound cultures of his leg grew gram-positive cocci and gram-negative rods (with a mixture of aerobic and anaerobic bacteria). The patient continued to improve on antibiotics. His leg pain and swelling lessened. By 06/06/2018 the patient was doing well, tolerating a regular diet, and was fit for discharge. The Physical Exam Vital Signs: Temp Pulse Resp BP Pulse Ox 98.2 F 75 16 143/74 H 95 06/06/18 09:52 06/06/18 09:52 06/06/18 09:52 06/06/18 09:52 06/06/18 09:52 Intake & Output 06/05/18 06/06/18 06/07/18 06:59 06:59 06:59 Intake Total 2800 450 Output Total 2085 950 Balance 715 -500 Weight 93.8 kg 93.7 kg Results Laboratory Results: 06/06/18 06:57 06/06/18 06:03 06/05/18 06/06/18 06/06/18 05:16 06:03 06:57 WBC 7.7 RBC 2.58 L Hgb 9.0 L Hct 25.9 L MCV 101 H MCH 34.8 H MCHC 34.6 RDW 15.5 H Plt Count 53 L Seg Neutrophils % 68.4 Lymphocytes % 28.6 Monocytes % 3.0 Eosinophils % 0.0 Basophils % 0.0 Absolute Neutrophils 5.2 Absolute Lymphocytes 2.2 Absolute Monocytes 0.2 Absolute Eosinophils 0.0 Absolute Basophils 0.0 Sodium 142.2 Potassium 3.0 L* Chloride 110 H Carbon Dioxide 24 Anion Gap 8 BUN 50 H Creatinine 1.87 H Est GFR ( Amer) 42 L Est GFR (Non-Af Amer) 35 L Glucose 122 H Calcium 8.5 Total Bilirubin 0.6 AST 40 ALT 29 Alkaline Phosphatase 62 C-Reactive Protein 239.0 H Total Protein 4.9 L Albumin 2.7 L 06/03/18 04:35 Waldrop Catheter Urine Culture - Final NO GROWTH 2 DAYS Impressions: Lower Extremity CT 06/03/18 01:27 IMPRESSION: Moderate, extensive subcutaneous edema/cellulitis of the right lower extremity. Chest X-Ray 06/03/18 08:13 IMPRESSION: Placement of a right subclavian central line with the tip in the superior vena cava. No pneumothorax. Qualifiers - * PATIENT BEING DISCHARGED WITH ANY OF THE FOLLOWING DIAGNOSIS: No Plan Discharge Plan: Discharge home. Diet as tolerated. Activity: Nonstrenuous. Follow-up with Dr. Horne per his recommendation. Keflex 500 mg p.o. twice daily times 2 weeks. Time Spent: Less than 30 Minutes
[2018-06-06 11:10] VITALS: BP 171/87
[2018-06-06] MEDS ORDERED: VANCOMYCIN HCL 1,250 MG in DEXTROSE 5%-WATER 250 ML IV SCH (22:00)
== END 2018-06-06 11:40 | disposition home or self-care (01) | DRG 871 ==
LOC: ER 00:26 → EH 04:15 → ICU 07:38 → 2N 06-04 22:16
PROVIDERS: ADMIT Surgery; ATTEND Surgery
PROC: 02HV33Z Insertion of Infusion Device into Superior Vena Cava, Percutaneous Approach (ICD-10-PCS; principal; 2018-06-03)
DX: A41.9 Sepsis, unspecified organism (principal); G93.41 Metabolic encephalopathy; L03.115 Cellulitis of right lower limb; C91.10 Chronic lymphocytic leukemia of B-cell type not having achieved remission; N17.9 Acute kidney failure, unspecified; I48.1 Persistent atrial fibrillation; I48.91 Unspecified atrial fibrillation; E78.00 Pure hypercholesterolemia, unspecified; N18.9 Chronic kidney disease, unspecified; I12.9 Hypertensive chronic kidney disease with stage 1 through stage 4 chronic kidney disease, or unspecified chronic kidney disease; E03.9 Hypothyroidism, unspecified; M35.3 Polymyalgia rheumatica; G47.30 Sleep apnea, unspecified; Z79.52 Long term (current) use of systemic steroids; Z79.82 Long term (current) use of aspirin; Z79.899 Other long term (current) drug therapy
CPT/HCPCS: 36415; 36600; 71045; 80053; 81001; 82803; 82962; 83605; 85025; 85610; 85730; 86140; 87040; 87070; 87077; 87086; 87186; 87205; 93005; 93010; 93925; C1751; J0690; J1170; J1720; J2543; J3370; J3490; J7030; J7060; J7120

== ENCOUNTER 2018-07-10 16:22 | Inpatient (IN) | payer MEDICARE, BC ==
--- NOTE | 2018-07-10 17:37 | RADIOLOGY REPORT (SQ) ---
EXAM DESCRIPTION: CHEST SINGLE VIEW COMPLETED DATE/TIME: 07/10/2018 5:24 pm REASON FOR STUDY: WHEEZING COMPARISON: 06/03/2018 EXAM PARAMETERS: NUMBER OF VIEWS: One view. TECHNIQUE: Single frontal radiographic view of the chest acquired. RADIATION DOSE: NA LIMITATIONS: None. FINDINGS: LUNGS AND PLEURA: No opacities, masses or pneumothorax. No pleural effusion. MEDIASTINUM AND HILAR STRUCTURES: No masses. Contour normal. HEART AND VASCULAR STRUCTURES: Borderline heart size. No pulmonary edema. BONES: No acute findings. HARDWARE: Pacemaker. OTHER: No other significant finding. IMPRESSION: Borderline heart size with no pulmonary edema. TECHNICAL DOCUMENTATION: JOB ID: [id number] [employer]- All Rights Reserved Reading location - IP/workstation name: [email or web address]
[2018-07-10 18:39] LABS: ABSOLUTE LYMPHOCYTES (AUTO) 1.5 10^3/uL (0.5-4.7); ABSOLUTE MONOCYTES (AUTO) 0.2 10^3/uL (0.1-1.4); ABSOLUTE NEUT (AUTO) 8.8 10^3/uL (1.7-8.2); EOSINOPHILS % (AUTO) 0.1 % (0-6); HEMATOCRIT 24.3 % (37.9-51.0); LYMPHOCYTES % (AUTO) 14.3 % (13-45); MEAN CORPUSCULAR HEMOGLOBIN 31.7 pg (27.0-33.4); MEAN CORPUSCULAR HGB CONC 32.3 g/dL (32.0-36.0); MEAN CORPUSCULAR VOLUME 98 fl (80-97); MONOCYTES % (AUTO) 2.2 % (3-13); RED BLOOD COUNT 2.47 10^6/uL (4.35-5.55); SEGMENTED NEUTROPHILS % (AUTO) 83.4 % (42-78); TOTAL CELLS COUNTED % (AUTO) 100 %; WHITE BLOOD COUNT 10.6 10^3/uL (4.0-10.5)
[2018-07-10 18:40] LABS: INTERNATIONAL RATION (INR) 1.26; PROTHROMBIN TIME 16.4 SEC (11.4-15.4)
--- NOTE | 2018-07-10 18:42 | EKG REPORT ---
SEVERITY:- ABNORMAL ECG - SINUS RHYTHM VENTRICULAR PREMATURE COMPLEX PROBABLE POSTERIOR INFARCT : Confirmed by: Yosvany Wetzel 10-Jul-2018 18:42:04
[2018-07-10 18:46] LABS: HEMOGLOBIN 7.9 g/dL (13.5-17.0); PLATELET COUNT 97 10^3/uL (150-450)
[2018-07-10 18:49] LABS: VENOUS BLOOD BASE EXCESS 2.3 mmol/L; VENOUS BLOOD HCO3 27.7 mmol/L (20-32); VENOUS BLOOD PCO2 46.4 mmHg (35-63); VENOUS BLOOD PH 7.39 (7.30-7.42)
[2018-07-10 18:58] LABS: ALANINE AMINOTRANSFERASE 43 U/L (21-72); ALBUMIN 2.8 g/dL (3.5-5.0); ALKALINE PHOSPHATASE 73 U/L (38-126); ANION GAP 7 (5-19); ASPARTATE AMINO TRANSFERASE 25 U/L (17-59); BILIRUBIN,DIRECT 0.2 mg/dL (0.0-0.4); BILIRUBIN,TOTAL 0.9 mg/dL (0.2-1.3); BLOOD UREA NITROGEN 47 mg/dL (7-20); CALCIUM 8.5 mg/dL (8.4-10.2); CARBON DIOXIDE 29 mmol/L (22-30); CHLORIDE 104 mmol/L (98-107); GLUCOSE 130 mg/dL (75-110); POTASSIUM 4.4 mmol/L (3.6-5.0); SODIUM 139.7 mmol/L (137-145)
[2018-07-10 19:03] LABS: APPEARANCE,URINE CLEAR; BILIRUBIN,URINE NEGATIVE (NEGATIVE); COLOR,URINE STRAW; GLUCOSE, URINE NEGATIVE (NEGATIVE); KETONES,URINE NEGATIVE (NEGATIVE); LEUKOCYTE ESTERASE,URINE NEGATIVE (NEGATIVE); NITRITE,URINE NEGATIVE (NEGATIVE); PROTEIN,URINE NEGATIVE (NEGATIVE); URINE SPECIFIC GRAVITY 1.009; UROBILINOGEN,URINE NEGATIVE mg/dL (<2.0)
--- NOTE | 2018-07-10 19:27 | ER Document Report ---
ED General - General Chief Complaint: Leg Pain Stated Complaint: WEAKNESS/FEVER Time Seen by Provider: 07/10/18 18:56 Primary Care Provider: ISMAEL HARRIS MD [Primary Care Provider] - Follow up as needed Notes: 83-year-old male with a poorly healing wound to his right lower extremity sustained approximately 6 weeks ago presents emergency department today sent in from the wound care clinic due to concerns for cellulitis and possible sepsis. Patient had wound cultures obtained from there approximately 1 week ago and it grew out 3 different bacteria. Today he has been having some confusion and altered mental status. Patient initially had surgery approximately 6 weeks ago to repair a large laceration, spent some time in this hospital and then was transferred to another hospital and then has been doing rehab at [facility] for the past 1 to 2 weeks. TRAVEL OUTSIDE OF THE [place] IN LAST 30 DAYS: No - Related Data Allergies/Adverse Reactions: NSAIDS (Non-Steroidal Anti-Inflamma Adverse Reaction (Intermediate, Verified 01/30/16 23:41) Past Medical History - General Information source: Relative - Granddaughter Cannot obtain history due to: Altered mental status - Social History Smoking Status: Former Smoker Chew tobacco use (# tins/day): No Frequency of alcohol use: Rare Drug Abuse: None Lives with: Other - Rehab facility Family History: CAD, Other - Alzheimer's Patient has suicidal ideation: No Patient has homicidal ideation: No - Past Medical History Cardiac Medical History: Reports: Hx Atrial Fibrillation, Hx Hypercholesterolemia, Hx Hypertension Pulmonary Medical History: Reports: Hx Sleep Apnea Endocrine Medical History: Reports: Hx Hypothyroidism Renal/ Medical History: Denies: Hx Peritoneal Dialysis Malignancy Medical History: 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 Musculoskeletal Medical History: Reports Hx Arthritis Psychiatric Medical History: Denies: Hx Depression Past Surgical History: Reports: Hx Abdominal Surgery - hernia repair, Hx Appendectomy, Hx Cardiac Surgery - pacemaker, Hx Herniorrhaphy - Left inguinal, Hx Orthopedic Surgery - Right ankle reconstruction, multilevel spinal fusion, Hx Vascular Surgery - Varicose vein surgery Review of Systems - Review of Systems Constitutional: See HPI - Confusion altered mental status EENT: No symptoms reported Musculoskeletal: See HPI Skin: See HPI Neurological/Psychological: See HPI -: Yes All other systems reviewed and negative Physical Exam - Notes Notes: GENERAL: Laying in bed, appears to be sleeping, becomes quite agitated when I began examining him. HEAD: Normocephalic, atraumatic EYES: Pupils equal, round and reactive to light, extraocular movements intact. ENT: Oral mucosa moist, tongue midline. NECK: Full range of motion, supple, trachea midline. LUNGS: Clear to auscultation bilaterally, no wheezes, rales or rhonchi, no respiratory distress. HEART: Regular rate and rhythm, no murmurs, gallops, rubs. ABDOMEN: Soft, nontender, nondistended, bowel sounds present in all 4 quadrants. EXTREMITIES: Moves all 4 extremities spontaneously, market edema to the bilateral lower extremities, right greater than left, 4+ on the right, 3+ on the left, radial and dorsalis pedis pulses 2/4 bilaterally. No cyanosis. NEUROLOGICAL: Sleeping, awakens easily, mumbling, noncoherent, only occasionally opens his eyes and answers questions for his granddaughter, will not answer questions for me. SKIN: Extensive bruising across chest abdomen and pelvis in various stages of healing, there is a chronic appearing wound to the anterior and lateral aspect of the right lower extremity, irregular in shape, approximately 12 cm wide and 9 cm long, there is surrounding erythema, purulent exudate, lymphangitic streaking to the level of the groin outlined in surgical marker. No fluctuance. Very tender to palpation. Course - Re-evaluation Re-evalutation: 07/10/18 19:26 CBC shows leukocytosis at 10.6, worsening anemia with hemoglobin 7.9, it was 9.0 when he was discharged on 06/06/2018, platelets remain low at 97, INR slightly prolonged at 1.26, chemistries reveal chronic renal failure with a BUN of 49 and creatinine to 2.32, the creatinine is slightly worse than prior, urinalysis unremarkable, no signs of blood or dehydration, chest x-ray unremarkable, does show a pacemaker without any signs of pulmonary edema.. Lymphangitic streaking combined with altered mental status and leukocytosis is concerning for serious infection at this time. Cultures and sensitivities were reviewed, wound culture from July 02 grew out staph aureus which is not resistant, Klebsiella pneumoniae and Enterobacter cloacae. It is all sensitive to Rocephin and I have started treatment with Rocephin. 07/10/18 19:[address] Bailey, agrees to admit, made Dr. Crowe aware of the patient as well. Will consult. Does not currently meet sepsis criteria. - Laboratory Result Diagrams: 07/10/18 18:14 07/10/18 18:14 Laboratory results interpreted by me: 07/10/18 07/10/18 07/10/18 18:14 18:14 18:14 WBC 10.6 H RBC 2.47 L Hgb 7.9 L Hct 24.3 L MCV 98 H RDW 19.0 H Plt Count 97 L Seg Neutrophils % 83.4 H Monocytes % 2.2 L Absolute Neutrophils 8.8 H PT 16.4 H BUN 47 H Creatinine 2.32 H Est GFR ( Amer) 33 L Est GFR (Non-Af Amer) 27 L Glucose 130 H Total Protein 5.0 L Albumin 2.8 L - EKG Interpretation by Me EKG shows normal: Sinus rhythm Rate: Normal - 70 Rhythm: NSR When compared to previous EKG there are: No significant change - 06/03/2018 normal axis. Discharge - Discharge Clinical Impression: Cellulitis of right leg without foot, Acute kidney injury superimposed on CKD, Anemia with chronic illness Altered mental status Qualifiers: Altered mental status type: delirium Qualified Code(s): R41.0 - Disorientation, unspecified Condition: Fair Disposition: ADMITTED INPATIENT Admitting Provider: Lynn (Hospitalist) Unit Admitted: Telemetry Referrals: ISMAEL HARRIS MD [Primary Care Provider] - Follow up as needed
[2018-07-10] MEDS ORDERED: CEFTRIAXONE 1 GM/D5W RTU 1 GM/50 ML RTUPB IV ONE (19:30)
[2018-07-10] MEDS ORDERED: LORAZEPAM INJ 2 MG/1 ML VIAL ONE (19:55)
[2018-07-10] MEDS ORDERED: LORAZEPAM INJ 2 MG/1 ML VIAL IV ONE ×2 (20:04→20:52)
[2018-07-10] MEDS ORDERED: HYDROMORPHONE HCL INJ/PF 2 MG/ML AMPULE IV ONE (20:04)
[2018-07-10] MEDS ORDERED: QUETIAPINE FUMARATE 25 MG TABLET PO ONE (20:04)
[2018-07-10] MEDS ORDERED: HYDROMORPHONE HCL INJ/PF 2 MG/ML AMPULE ONE (20:04)
[2018-07-10] MEDS ORDERED: MAGNESIUM HYDROXIDE SUSP 30 ML UDCUP PO PRN (21:09)
[2018-07-10] MEDS ORDERED: TEMAZEPAM 15 MG CAPSULE PO PRN (21:09)
[2018-07-10] MEDS ORDERED: MAG HYDROX/AL HYDROX/SIMETH SUSP 30 ML UDCUP PO PRN (21:09)
[2018-07-10] MEDS ORDERED: ONDANSETRON HCL INJ/PF 4 MG/2 ML SDV IV PRN (21:09)
[2018-07-10] MEDS ORDERED: HYDRALAZINE HCL INJ/PF 20 MG/1 ML SDV IV PRN (21:13)
[2018-07-10] MEDS ORDERED: MORPHINE SULFATE 10 MG/ML INJ IV PRN ×5 (21:13→22:02)
[2018-07-10] MEDS ORDERED: ACETAMINOPHEN 325 MG TABLET PO PRN (21:13)
[2018-07-10] MEDS ORDERED: MEROPENEM 1 GM VIAL IV ONE (21:14)
[2018-07-10] MEDS ORDERED: MEROPENEM 500 MG VIAL IV SCH (21:15)
[2018-07-10] MEDS: HEPARIN SOD (PORCINE) 5,000 UNIT/ML 1 ML SYRINGE SUBCUT SCH (22:00)
[2018-07-10] MEDS ORDERED: MEROPENEM 1 GM in NORMAL SALINE 50 ML IV ONE (22:30)
[2018-07-10] MEDS: NEBIVOLOL HCL 10 MG TABLET PO SCH (23:41)
[2018-07-10] MEDS: PRAMIPEXOLE DI-HCL 0.5 MG TABLET PO SCH (23:42)
[2018-07-10] MEDS: DOFETILIDE 125 MCG CAPSULE PO SCH (23:43)
[2018-07-10] MEDS: DIAZEPAM INJ 10 MG/2 ML DISP.SYRIN IV PRN (23:52)
[2018-07-10] MEDS ORDERED: RINGERS SOLUTION,LACTATED 1,000 ML IV PRN (23:55)
--- NOTE | 2018-07-10 23:56 | PDOC H&P ---
History of Present Illness Admission Date/PCP: 07/10/18 20:03 ISMAEL HARRIS MD Patient complains of: Cellulitis with lymphangitis History of Present Illness: ROSAURA LYONS is a 83 year old male who presented to the emergency room with an acute history of altered mental status. His daughter related that he developed acute confusion this morning that has persisted throughout the remain fernando of the day and is still present. He was sent to the emergency room for evaluation by his wound care physician who was concerned that he may have developing sepsis due to his right lower leg wound cellulitis. He has right leg has a poorly healing wound from an injury 6 weeks ago that was cultured 1 week ago with a polymicrobial growth of staph aureus, Klebsiella pneumonia, Enterobacter cloacae and Acinetobacter Baumannii. He was noted to have developed lymphangitis by the wound care clinic physician. His daughter has not identified any aggravating or ameliorating factors for his acute confusion. Patient has acute dementia and is unable to contribute to his medical record or care. In the emergency room he was found to be acutely confused and his right lower extremity showed significant evidence of cellulitis with ascending lymphangitis. Patient was subsequently admitted to hospital for further evaluation and treatment. Past Medical History Past Medical History: Due to the patient's altered mental status past medical history, past surgical history, social history and family history are obtained from available current and old medical records as well as all available reliable sources. Cardiac Medical History: Reports: Atrial Fibrillation, Hyperlipidema, Hypertension Pulmonary Medical History: Reports: Sleep Apnea Denies: Asthma, Chronic Obstructive Pulmonary Disease (COPD) EENT Medical History: Denies: Ears - Hearing aids, Throat - Dysphagia Neurological Medical History: Reports: Other - Chronic demyelinating disorder Denies: Hemorrhagic CVA, Ischemic CVA, Seizures Endocrine Medical History: Reports: Hypothyroidism Denies: Diabetes Mellitus Type 1, Diabetes Mellitus Type 2, Hyperthyroidism Renal/ Medical History: Reports: Chronic Kidney Disease Denies: Nephrolithiasis Malignancy Medical History: Reports: Leukemia - CLL GI Medical History: Denies: Cirrhosis, Hepatitis Musculoskeltal Medical History: Reports: Arthritis - Rheumatoid arthritis, Other - Polymyalgia rheumatica Denies: Gout Skin Medical History: Denies: Eczema, Psoriasis Psychiatric Medical History: Reports: Dementia - Mild changes with short-term memory and attention deficits Denies: Alcohol Dependency, Substance Abuse, Tobacco Dependency Traumatic Medical History: Reports: None Hematology: Reports: Anemia - Attributed to CLL, Other - Bruises easily Denies: Bleeding Tendencies Infectious Medical History: Reports: None Past Surgical History Past Surgical History: Due to the patient's altered mental status past medical history, past surgical h istory, social history and family history are obtained from available current and old medical records as well as all available reliable sources. Past Surgical History: Reports: Appendectomy, Herniorrhaphy - Left inguinal, Orthopedic Surgery - Right ankle reconstruction, multilevel spinal fusion, Vascular Surgery - Varicose vein surgery Social History Information Source: Relative Lives with: Spouse/Significant other, Other - Rehab facility Smoking Status: Former Smoker Frequency of Alcohol Use: Rare Hx Recreational Drug Use: No Drugs: None Hx Prescription Drug Abuse: No Past Social History Note: Due to the patient's altered mental status past medical history, past surgical history, social history and family history are obtained from available current and old medical records as well as all available reliable sources. - Advance Directive Resuscitation Status: Full Code Surrogate healthcare decision maker:: Spouse Family History Family History: CAD, Other - Alzheimer's dementia Family History: Due to the patient's altered mental status past medical history, past surgical history, social history and family history are obtained from available current and old medical records as well as all available reliable sources. Parental Family History Reviewed: Yes Children Family History Reviewed: No Sibling(s) Family History Reviewed.: Yes Medication/Allergy Home Medications: Furosemide 20 mg PO DAILY 04/07/17 Levothyroxine Sodium [Synthroid 0.1 mg Tablet] 0.1 mg PO DAILY 04/07/17 Aspirin [Ecotrin] 81 mg PO DAILY 06/03/18 Dofetilide [Tikosyn 125 Mcg Capsule] 125 mcg PO Q12 06/03/18 Esomeprazole Magnesium [Nexium] 20 mg PO QPM 06/03/18 Nebivolol HCl [Bystolic 10 mg Tablet] 5 mg PO Q12 06/03/18 Pramipexole Di-HCl [Mirapex 0.5 Mg Tablet] 1 mg PO QHS 06/03/18 Prednisone [Deltasone 10 mg Tablet] 15 mg PO DAILY 06/03/18 Tamsulosin HCl [Flomax 0.4 mg Cap.sr] 0.4 mg PO QPM 06/03/18 Allergies/Adverse Reactions: NSAIDS (Non-Steroidal Anti-Inflamma Adverse Reaction (Intermediate, Verified 01/30/16 23:41) Review of Systems ROS unobtainable: Due to mental status - Acute dementia Physical Exam General appearance: PRESENT: no acute distress, cooperative, other - Confusion noted Head exam: PRESENT: atraumatic, normocephalic Eye exam: ABSENT: conjunctival injection, scleral icterus Ear exam: PRESENT: normal external ear exam. ABSENT: bleeding, drainage Mouth exam: PRESENT: dry mucosa, neck supple Neck exam: ABSENT: JVD, thyromegaly, tracheal deviation Respiratory exam: PRESENT: clear to auscultation lo, symmetrical, unlabored Cardiovascular exam: PRESENT: RRR. ABSENT: clicks, gallop, rubs Pulses: PRESENT: normal radial pulses, normal dorsalis pedis pul Vascular exam: PRESENT: normal capillary refill. ABSENT: pallor GI/Abdominal exam: PRESENT: normal bowel sounds, soft Rectal exam: PRESENT: deferred Extremities exam: ABSENT: joint swelling, pedal edema Musculoskeletal exam: ABSENT: deformity, dislocation Neurological exam: PRESENT: CN II-XII grossly intact, other - Somnolent but arousable. ABSENT: oriented to person, oriented to place, oriented to time, oriented to situation, motor sensory deficit Psychiatric exam: PRESENT: agitated - When aroused, other - Confused when aroused Skin exam: PRESENT: dry, rash - Ascending lymphangitis noted on the right lower extremity, warm, other - Erythema and edema of a poorly healing wound noted right lower leg. ABSENT: jaundice, urticaria Results Laboratory Results: 07/10/18 18:14 07/10/18 18:14 07/10/18 07/10/18 07/10/18 18:14 18:14 18:14 WBC 10.6 H RBC 2.47 L Hgb 7.9 L Hct 24.3 L MCV 98 H MCH 31.7 MCHC 32.3 RDW 19.0 H Plt Count 97 L Seg Neutrophils % 83.4 H Lymphocytes % 14.3 Monocytes % 2.2 L Eosinophils % 0.1 Basophils % 0.0 Absolute Neutrophils 8.8 H Absolute Lymphocytes 1.5 Absolute Monocytes 0.2 Absolute Eosinophils 0.0 Absolute Basophils 0.0 VBG pH VBG pCO2 VBG HCO3 VBG Base Excess Sodium 139.7 Potassium 4.4 Chloride 104 Carbon Dioxide 29 Anion Gap 7 BUN 47 H Creatinine 2.32 H Est GFR ( Amer) 33 L Est GFR (Non-Af Amer) 27 L Glucose 130 H Lactic Acid 0.9 Calcium 8.5 Total Bilirubin 0.9 AST 25 ALT 43 Alkaline Phosphatase 73 Total Protein 5.0 L Albumin 2.8 L Urine Color Urine Appearance Urine pH Ur Specific [place] Urine Protein Urine Glucose (UA) Urine Ketones Urine Blood Urine Nitrite Ur Leukocyte Esterase Urine RBC (Auto) 07/10/18 07/10/18 18:14 18:14 WBC RBC Hgb Hct MCV MCH MCHC RDW Plt Count Seg Neutrophils % Lymphocytes % Monocytes % Eosinophils % Basophils % Absolute Neutrophils Absolute Lymphocytes Absolute Monocytes Absolute Eosinophils Absolute Basophils VBG pH 7.39 VBG pCO2 46.4 VBG HCO3 27.7 VBG Base Excess 2.3 Sodium Potassium Chloride Carbon Dioxide Anion Gap BUN Creatinine Est GFR ( Amer) Est GFR (Non-Af Amer) Glucose Lactic Acid Calcium Total Bilirubin AST ALT Alkaline Phosphatase Total Protein Albumin Urine Color STRAW Urine Appearance CLEAR Urine pH 5.0 Ur Specific [place] 1.009 Urine Protein NEGATIVE Urine Glucose (UA) NEGATIVE Urine Ketones NEGATIVE Urine Blood NEGATIVE Urine Nitrite NEGATIVE Ur Leukocyte Esterase NEGATIVE Urine RBC (Auto) 0 Impressions: Chest X-Ray 07/10/18 17:08 IMPRESSION: Borderline heart size with no pulmonary edema. Assessment and Plan - Diagnosis (1) Cellulitis with lymphangitis Is this a current diagnosis for this admission?: Yes Plan: Patient's cellulitis with lymphangitis will be treated with meropenem as this agent class was demonstrated or is presumed to be effective against all culture organisms. Patient's lab work we followed with a daily CBC and metabolic profile as well as a magnesium level. (2) Altered mental status Qualifiers: Altered mental status type: unspecified Qualified Code(s): R41.82 - Altered mental status, unspecified Is this a current diagnosis for this admission?: Yes Plan: Patient's altered mental status will be treated by supportive and symptomatic cares, as well as treating the underlying infectious etiology but may have prompted the worsening of his mild dementia. Any significant agitation will be treated with Valium 10 mg IV every 4 hours as needed. Patient's mental status will be monitored with daily metabolic profiles and magnesium levels. (3) Acute kidney injury superimposed on CKD Is this a current diagnosis for this admission?: Yes Plan: Patient is being treated with gentle IV hydration. His renal functions will be monitored on a daily basis with a metabolic profile. (4) Chronic lymphocytic leukemia Is this a current diagnosis for this admission?: Yes Plan: Patient has a history of chronic lymphocytic leukemia which could significantly decrease his immune status. Therefore initial treatment will be with a broad- spectrum agent (meropenem) until further culture results or recommendations for change in therapy are available. The patient's CLL will be monitored with daily CBCs. (5) Hypothyroidism Qualifiers: Hypothyroidism type: acquired Qualified Code(s): E03.9 - Hypothyroidism, unspecified Is this a current diagnosis for this admission?: Yes Plan: Patient will be continued on his current thyroid replacement therapy. A thyroid profile will be obtained to evaluate efficacy of therapy and adjustments in thyroid dosage can be made if necessary. - Time Time Spent with patient: 15-24 minutes Medications reviewed and adjusted accordingly: Yes Anticipated discharge: Home, Home with Homehealth, SNF - Inpatient Certification Based on my medical assessment, after consideration of the patient's comorbidities, presenting symptoms, or acuity I expect that the services needed warrant INPATIENT care.: Yes I certify that my determination is in accordance with my understanding of Medicare's requirements for reasonable and necessary INPATIENT services [42 CFR 412.3e].: Yes Medical Necessity: Failure to Improve With Outpatient Therapy, Significant Comorbidiites Make Outpatient Treatment Too Risky, Need Close Monitoring Due to Risk of Patient Decompensation, Need For IV Fluids, Need for Pain Control, Need for IV Antibiotics, Risk of Complication if Not Cared For in Hospital, Risk of Diagnosis Which Will Require Inpatient Eval/Care/Monitoring
[2018-07-11] MEDS ORDERED: MEROPENEM 500 MG VIAL ONE (03:04)
[2018-07-11] MEDS: DIAZEPAM INJ 10 MG/2 ML DISP.SYRIN IV PRN ×3 (03:44→21:57)
[2018-07-11 05:09] LABS: ABSOLUTE LYMPHOCYTES (AUTO) 1.2 10^3/uL (0.5-4.7); ABSOLUTE MONOCYTES (AUTO) 0.3 10^3/uL (0.1-1.4); ABSOLUTE NEUT (AUTO) 6.4 10^3/uL (1.7-8.2); BASOPHILS % (AUTO) 0.1 % (0-2); EOSINOPHILS % (AUTO) 0.5 % (0-6); HEMATOCRIT 20.9 % (37.9-51.0); LYMPHOCYTES % (AUTO) 15.5 % (13-45); MEAN CORPUSCULAR HEMOGLOBIN 31.8 pg (27.0-33.4); MEAN CORPUSCULAR HGB CONC 32.5 g/dL (32.0-36.0); MEAN CORPUSCULAR VOLUME 98 fl (80-97); MONOCYTES % (AUTO) 3.2 % (3-13); RED BLOOD COUNT 2.14 10^6/uL (4.35-5.55); RED CELL DISTRIBUTION WIDTH 19.3 % (11.5-14.0); SEGMENTED NEUTROPHILS % (AUTO) 80.7 % (42-78); TOTAL CELLS COUNTED % (AUTO) 100 %
[2018-07-11 05:24] LABS: ANION GAP 8 (5-19); BLOOD UREA NITROGEN 47 mg/dL (7-20); CARBON DIOXIDE 27 mmol/L (22-30); CHLORIDE 107 mmol/L (98-107); CHOLESTEROL 86.23 mg/dL (0-200); GLUCOSE 97 mg/dL (75-110); POTASSIUM 3.9 mmol/L (3.6-5.0); SODIUM 141.8 mmol/L (137-145); TRIGLYCERIDES 47 mg/dL (<150)
[2018-07-11 05:35] LABS: DIRECT LDL 47 mg/dL (<100)
[2018-07-11] MEDS: HEPARIN SOD (PORCINE) 5,000 UNIT/ML 1 ML SYRINGE SUBCUT SCH ×3 (05:43→21:16)
[2018-07-11] MEDS: MEROPENEM 500 MG in NORMAL SALINE 50 ML IV SCH ×2 (05:44→13:09)
[2018-07-11 06:05] LABS: FREE T3 2.23 pg/mL (2.77-5.27); FREE T4 (FREE THYROXINE) 1.52 ng/dL (0.78-2.19); PLATELET COUNT 75 10^3/uL (150-450)
[2018-07-11 06:11] LABS: HEMOGLOBIN 6.8 g/dL (13.5-17.0)
[2018-07-11 06:19] LABS: THYROID STIMULATING HORMONE 3.1 uIU/mL (0.47-4.68)
[2018-07-11] MEDS: PANTOPRAZOLE SODIUM 40 MG TABLET.DR PO SCH (06:30)
[2018-07-11] MEDS: LEVOTHYROXINE SODIUM 0.1 MG TABLET PO SCH (06:31)
[2018-07-11] MEDS ORDERED: FUROSEMIDE 20 MG TABLET PO SCH (10:00)
[2018-07-11] MEDS: NEBIVOLOL HCL 10 MG TABLET PO SCH (10:11)
[2018-07-11] MEDS: ASPIRIN 81 MG TABLET, ENT COATED PO SCH (10:12)
[2018-07-11] MEDS: DOCUSATE SODIUM 100 MG CAPSULE PO SCH ×2 (10:12→17:37)
[2018-07-11] MEDS: PREDNISONE 10 MG TABLET PO SCH (10:12)
[2018-07-11] MEDS: ESCITALOPRAM OXALATE 10 MG TABLET PO SCH (10:12)
[2018-07-11] MEDS: DOFETILIDE 125 MCG CAPSULE PO SCH ×2 (10:13→21:08)
[2018-07-11] MEDS ORDERED: BISACODYL 10 MG SUPP.RECT PR PRN (11:29)
--- NOTE | 2018-07-11 11:56 | PDOC PROGRESS REPORT ---
Subjective Progress Note for:: 07/11/18 Subjective:: 83 year old male who presented to the emergency room with an acute history of altered mental status. His daughter related that he developed acute confusion this morning that has persisted throughout the remainder of the day and is still present. He was sent to the emergency room for evaluation by his wound care physician who was concerned that he may have developing sepsis due to his right lower leg wound cellulitis. He has right leg has a poorly healing wound from an injury 6 weeks ago that was cultured 1 week ago with a polymicrobial growth of staph aureus, Klebsiella pneumonia, Enterobacter cloacae and Acinetobacter Baumannii. He was noted to have developed lymphangitis by the wound care clinic physician. His daughter has not identified any aggravating or ameliorating factors for his acute confusion. Patient has acute dementia and is unable to co ntribute to his medical record or care. In the emergency room he was found to be acutely confused and his right lower extremity showed significant evidence of cellulitis with ascending lymphangitis. Patient was subsequently admitted to hospital for further evaluation and treatment. 07/12/1999 [id number] male admitted with right lower leg cellulitis. Patient has also has lymphadenitis. Presently on IV meropenem. He is confused and agitated. He is a very high risk for fall. Patient also history of chronic renal failure, atrial fibrillation, chronic anemia with hemoglobin of 6.8 this morning is going to receive 1 unit of PRBC today and history of CLL. Patient's full CODE STATUS is full code. Because of the multiple comorbidities I think is better for the patient to go to [facility]. is at bedside and she also want to move the patient to [facility]. 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 Reason For Visit: CELLULITIS WITH LYMPHANGITIS Physical Exam Vital Signs: Temp Pulse Resp BP Pulse Ox 97.7 F 70 19 127/63 H 94 07/11/18 08:00 07/11/18 08:00 07/11/18 08:00 07/11/18 08:00 07/11/18 08:00 Intake & Output 07/10/18 07/11/18 07/12/18 06:59 06:59 06:59 Intake Total 50 Balance 50 Weight 108 kg General appearance: PRESENT: severe distress, well-developed Head exam: PRESENT: atraumatic Eye exam: PRESENT: PERRLA Ear exam: PRESENT: normal external ear exam Neck exam: ABSENT: carotid bruit, JVD, lymphadenopathy, thyromegaly Respiratory exam: PRESENT: clear to auscultation lo. ABSENT: rales, rhonchi, wheezes Cardiovascular exam: PRESENT: systolic murmur, tachycardia GI/Abdominal exam: PRESENT: normal bowel sounds, soft. ABSENT: distended, guarding, mass, organolmegaly, rebound, tenderness Rectal exam: PRESENT: deferred Extremities exam: PRESENT: other - Chronic skin changes in both lower extremities. Wound on the right lower leg looks infected. It has a dressing with gauze. Neurological exam: PRESENT: other - Patient has baseline dementia but is confu sed and agitated. No focal neurological deficits. Psychiatric exam: PRESENT: agitated, anxious Results Laboratory Results: 07/11/18 04:20 07/11/18 04:20 07/10/18 07/10/18 07/10/18 18:14 18:14 18:14 WBC 10.6 H RBC 2.47 L Hgb 7.9 L Hct 24.3 L MCV 98 H MCH 31.7 MCHC 32.3 RDW 19.0 H Plt Count 97 L Seg Neutrophils % 83.4 H Lymphocytes % 14.3 Monocytes % 2.2 L Eosinophils % 0.1 Basophils % 0.0 Absolute Neutrophils 8.8 H Absolute Lymphocytes 1.5 Absolute Monocytes 0.2 Absolute Eosinophils 0.0 Absolute Basophils 0.0 VBG pH VBG pCO2 VBG HCO3 VBG Base Excess Sodium 139.7 Potassium 4.4 Chloride 104 Carbon Dioxide 29 Anion Gap 7 BUN 47 H Creatinine 2.32 H Est GFR ( Amer) 33 L Est GFR (Non-Af Amer) 27 L Glucose 130 H Lactic Acid 0.9 Calcium 8.5 Magnesium Total Bilirubin 0.9 AST 25 ALT 43 Alkaline Phosphatase 73 Total Protein 5.0 L Albumin 2.8 L Triglycerides Cholesterol LDL Cholesterol Direct VLDL Cholesterol HDL Cholesterol TSH Free T4 Free T3 pg/mL Urine Color Urine Appearance Urine pH Ur Specific [place] Urine Protein Urine Glucose (UA) Urine Ketones Urine Blood Urine Nitrite Ur Leukocyte Esterase Urine RBC (Auto) 07/10/18 07/10/18 07/11/18 18:14 18:14 04:20 WBC 8.0 RBC 2.14 L Hgb 6.8 L Hct 20.9 L MCV 98 H MCH 31.8 MCHC 32.5 RDW 19.3 H Plt Count 75 L Seg Neutrophils % 80.7 H Lymphocytes % 15.5 Monocytes % 3.2 Eosinophils % 0.5 Basophils % 0.1 Absolute Neutrophils 6.4 Absolute Lymphocytes 1.2 Absolute Monocytes 0.3 Absolute Eosinophils 0.0 Absolute Basophils 0.0 VBG pH 7.39 VBG pCO2 46.4 VBG HCO3 27.7 VBG Base Excess 2.3 Sodium Potassium Chloride Carbon Dioxide Anion Gap BUN Creatinine Est GFR ( Amer) Est GFR (Non-Af Amer) Glucose Lactic Acid Calcium Magnesium Total Bilirubin AST ALT Alkaline Phosphatase Total Protein Albumin Triglycerides Cholesterol LDL Cholesterol Direct VLDL Cholesterol HDL Cholesterol TSH Free T4 Free T3 pg/mL Urine Color STRAW Urine Appearance CLEAR Urine pH 5.0 Ur Specific [place] 1.009 Urine Protein NEGATIVE Urine Glucose (UA) NEGATIVE Urine Ketones NEGATIVE Urine Blood NEGATIVE Urine Nitrite NEGATIVE Ur Leukocyte Esterase NEGATIVE Urine RBC (Auto) 0 07/11/18 07/11/18 04:20 04:20 WBC RBC Hgb Hct MCV MCH MCHC RDW Plt Count Seg Neutrophils % Lymphocytes % Monocytes % Eosinophils % Basophils % Absolute Neutrophils Absolute Lymphocytes Absolute Monocytes Absolute Eosinophils Absolute Basophils VBG pH VBG pCO2 VBG HCO3 VBG Base Excess Sodium 141.8 Potassium 3.9 Chloride 107 Carbon Dioxide 27 Anion Gap 8 BUN 47 H Creatinine 2.24 H Est GFR ( Amer) 34 L Est GFR (Non-Af Amer) 28 L Glucose 97 Lactic Acid Calcium 8.0 L Magnesium 2.2 Total Bilirubin AST ALT Alkaline Phosphatase Total Protein Albumin Triglycerides 47 Cholesterol 86.23 LDL Cholesterol Direct 47 VLDL Cholesterol 9.0 L HDL Cholesterol 38 L TSH 3.10 Free T4 1.52 Free T3 pg/mL 2.23 L Urine Color Urine Appearance Urine pH Ur Specific [place] Urine Protein Urine Glucose (UA) Urine Ketones Urine Blood Urine Nitrite Ur Leukocyte Esterase Urine RBC (Auto) Impressions: Chest X-Ray 07/10/18 17:08 IMPRESSION: Borderline heart size with no pulmonary edema. Assessment and Plan - Diagnosis (1) Acute kidney injury superimposed on CKD Is this a current diagnosis for this admission?: Yes Plan: Patient is being treated with gentle IV hydration. His renal functions will be monitored on a daily basis with a metabolic profile. 07/11/2018-patient is admitted with a serum creatinine of 2.32, it is today is 2.24. Patient's baseline creatinine is around 1.8. Acute kidney injury may be secondary to poor oral intake. Patient is started on IV fluids. We are going to watch for the fluid overload.. (2) Altered mental status Qualifiers: Altered mental status type: unspecified Qualified Code(s): R41.82 - Altered mental status, unspecified Is this a current diagnosis for this admission?: Yes Plan: Patient's altered mental status will be treated by supportive and symptomatic cares, as well as treating the underlying infectious etiology but may have prompted the worsening of his mild dementia. Any significant agitation will be treated with Valium 10 mg IV every 4 hours as needed. Patient's mental status will be monitored with daily metabolic profiles and magnesium levels. 07/11/2018-patient has baseline dementia admitted with anxiety and agitation. Altered mental status pathology is unknown. Presently on Valium IV 4 mg every 4 hours as needed. is concerned about high dose of Valium she wants to cut the dose. (3) Anemia with chronic illness Is this a current diagnosis for this admission?: Yes Plan: 07/11/2018-patient's hemoglobin is 6.8 this morning receiving 1 unit of PRBC. Plan to check post transfusion CBC. Anemia due to chronic illness. (4) Cellulitis of right leg without foot Is this a current diagnosis for this admission?: Yes Plan: 07/11/2018-patient came in with cellulitis of the right leg he was seen by Dr. Horne in the wound care center he was transferred up here for further management. Wound cultures blood cultures are pending. Patient is on meropenem. (5) Atrial fibrillation Qualifiers: Atrial fibrillation type: persistent Qualified Code(s): I48.1 - Persistent atrial fibrillation Is this a current diagnosis for this admission?: Yes Plan: 07/11/2018-patient has history of chronic atrial fibrillation. Not on anticoagulation at home. Patient is presently on a heparin 5000 units subcu every 8 hours. (6) CLL (chronic lymphocytic leukemia) Is this a current diagnosis for this admission?: No Plan: 07/11/2018-patient has a history of CLL. With a hemoglobin of 6.8 and WBC count of 8000. Consultation with Dr. Kramer will be requested. (7) Thrombocytopenia Is this a current diagnosis for this admission?: Yes Plan: 07/11/2018-platelets count is 75,000 today thrombocytopenia may be difficult secondary to CLL/underlying chronic illnesses. - Time Time Spent with patient: 25-34 minutes Medications reviewed and adjusted accordingly: Yes Anticipated discharge: SNF
[2018-07-11] MEDS ORDERED: NEBIVOLOL HCL 10 MG TABLET PO SCH (12:30)
[2018-07-11] MEDS: NYSTATIN/DEXAMETH/DIPHEN SUSP 120 ML PO SCH ×3 (12:44→21:07)
[2018-07-11] MEDS: NYSTATIN/TRIAMCIN OINTMENT 15 GM TP SCH (12:44)
[2018-07-11] MEDS: NEBIVOLOL HCL 5 MG TABLET PO SCH ×2 (12:44→21:06)
[2018-07-11] MEDS: OXYCODONE HCL SR 10 MG TABLET PO SCH ×2 (12:54→21:06)
[2018-07-11] MEDS: RINGERS SOLUTION,LACTATED 1,000 ML IV PRN (12:55)
[2018-07-11] MEDS: TAMSULOSIN HCL 0.4 MG CAP.SR.24H PO SCH (17:37)
[2018-07-11] MEDS: PRAMIPEXOLE DI-HCL 0.5 MG TABLET PO SCH (21:08)
[2018-07-11] MEDS: MEROPENEM IV SCH (21:09)
[2018-07-11] MEDS: NORMAL SALINE IV SCH (21:09)
[2018-07-11] MEDS: QUETIAPINE FUMARATE 25 MG TABLET PO SCH (21:18)
[2018-07-11 21:40] LABS: HEMATOCRIT 24.3 % (37.9-51.0); MEAN CORPUSCULAR HEMOGLOBIN 32.3 pg (27.0-33.4); MEAN CORPUSCULAR VOLUME 98 fl (80-97); RED BLOOD COUNT 2.48 10^6/uL (4.35-5.55); RED CELL DISTRIBUTION WIDTH 18.5 % (11.5-14.0); WHITE BLOOD COUNT 10.2 10^3/uL (4.0-10.5)
[2018-07-11 21:46] LABS: PLATELET COUNT 77 10^3/uL (150-450)
--- NOTE | 2018-07-11 22:36 | PDOC CONSULTATION ---
Consultation Consult Date: 07/11/18 Attending physician:: BRITTANY MERCEDES History of Present Illness Admission Date/PCP: 07/10/18 20:03 ISMAEL HARRIS MD History of Present Illness: ROSAURA LYONS is a 83 year old male with a poorly healing wound to his right lower extremity sustained approximately 6 weeks ago presents emergency department today sent in from the wound care clinic due to concerns for cellulitis and possible sepsis. Patient had wound cultures obtained from there approximately 1 week ago and it grew out 3 different bacteria. Today he has been having some confusion and altered mental status. has hx of sepsis with mental status changes. right leg wound has been treated in wound clinic last few weeks with dressing he has chronic venous insufficiency with brawny edema in both lower ext remities. with hx of CLL and steroids, pt has been admitted recently for sepsis secondary to his lower extremity open wound' Past Medical History Cardiac Medical History: Reports: Atrial Fibrillation, Hyperlipidema, Hypertension Pulmonary Medical History: Reports: Sleep Apnea Denies: Asthma, Chronic Obstructive Pulmonary Disease (COPD) EENT Medical History: Reports: Other - Bruises easily Denies: Ears - Hearing aids, Throat - Dysphagia Neurological Medical History: Reports: Other - Chronic demyelinating disorder Denies: Hemorrhagic CVA, Ischemic CVA, Seizures Endocrine Medical History: Reports: Hypothyroidism Denies: Diabetes Mellitus Type 1, Diabetes Mellitus Type 2, Hyperthyroidism Renal/ Medical History: Reports: Chronic Kidney Disease Denies: Nephrolithiasis Malignancy Medical History: Reports: Leukemia - CLL GI Medical History: Denies: Cirrhosis, Hepatitis Musculoskeltal Medical History: Reports: Arthritis - Rheumatoid arthritis, Other - Polymyalgia rheumatica Denies: Gout Skin Medical History: Denies: Eczema, Psoriasis Psychiatric Medical History: Reports: Dementia - Mild changes with short-term memory and attention deficits Denies: Alcohol Dependency, Depression, Substance Abuse, Tobacco Dependency Traumatic Medical History: Reports: None Hematology: Reports: Anemia - Attributed to CLL, Other - Bruises easily Denies: Bleeding Tendencies Infectious Medical History: Reports: None Past Surgical History Past Surgical History: Reports: Appendectomy, Herniorrhaphy - Left inguinal, Orthopedic Surgery - Right ankle reconstruction, multilevel spinal fusion, Vascular Surgery - Varicose vein surgery Social History Lives with: Spouse/Significant other, Other - Rehab facility Smoking Status: Former Smoker Frequency of Alcohol Use: Rare Hx Recreational Drug Use: No Drugs: None Hx Prescription Drug Abuse: No - Advance Directive Resuscitation Status: Full Code Family History Family History: CAD, Other - Alzheimer's dementia Parental Family History Reviewed: No Children Family History Reviewed: NA Sibling(s) Family History Reviewed.: NA Medication/Allergy Home Medications: Furosemide 20 mg PO DAILY 04/07/17 Levothyroxine Sodium [Synthroid 0.1 mg Tablet] 0.1 mg PO DAILY 04/07/17 Aspirin [Ecotrin] 81 mg PO DAILY 06/03/18 Dofetilide [Tikosyn 125 Mcg Capsule] 125 mcg PO Q12 06/03/18 Esomeprazole Magnesium [Nexium] 20 mg PO QPM 06/03/18 Nebivolol HCl [Bystolic 10 mg Tablet] 5 mg PO Q12 06/03/18 Pramipexole Di-HCl [Mirapex 0.5 Mg Tablet] 1 mg PO QHS 06/03/18 Prednisone [Deltasone 10 mg Tablet] 15 mg PO DAILY 06/03/18 Tamsulosin HCl [Flomax 0.4 mg Cap.sr] 0.4 mg PO QPM 06/03/18 Allergies/Adverse Reactions: NSAIDS (Non-Steroidal Anti-Inflamma Adverse Reaction (Intermediate, Verified 01/30/16 23:41) Physical Exam Vital Signs: Temp Pulse Resp BP Pulse Ox 98.7 F 61 22 H 123/89 H 92 07/11/18 19:28 07/11/18 19:53 07/11/18 19:28 07/11/18 19:28 07/11/18 19:28 Intake & Output 07/10/18 07/11/18 07/12/18 06:59 06:59 06:59 Intake Total 50 336 Balance 50 336 Weight 108 kg General appearance: PRESENT: no acute distress, cooperative Head exam: PRESENT: normocephalic Eye exam: PRESENT: EOMI Mouth exam: PRESENT: moist, neck supple Neck exam: PRESENT: full ROM Respiratory exam: PRESENT: clear to auscultation lo Cardiovascular exam: PRESENT: RRR Pulses: PRESENT: normal radial pulses, normal femoral pulses, +2 pedal pulses bilateral GI/Abdominal exam: PRESENT: soft, other - multiple ecchymotic bruises Rectal exam: PRESENT: deferred Extremities exam: PRESENT: other - bilateral lower extremitiy, below knee edema c/w venous stasis rt ant calf with open wound approx 15 cm x10cm min necrosis, pale granulation tissue mild cellulitis extending to upper thigh. Musculoskeletal exam: PRESENT: full ROM Neurological exam: PRESENT: alert, awake, oriented to person, oriented to time Psychiatric exam: PRESENT: appropriate affect Skin exam: PRESENT: dry Results Laboratory Results: 07/11/18 21:19 07/11/18 04:20 07/11/18 07/11/18 07/11/18 04:20 04:20 04:20 WBC 8.0 RBC 2.14 L Hgb 6.8 L Hct 20.9 L MCV 98 H MCH 31.8 MCHC 32.5 RDW 19.3 H Plt Count 75 L Seg Neutrophils % 80.7 H Lymphocytes % 15.5 Monocytes % 3.2 Eosinophils % 0.5 Basophils % 0.1 Absolute Neutrophils 6.4 Absolute Lymphocytes 1.2 Absolute Monocytes 0.3 Absolute Eosinophils 0.0 Absolute Basophils 0.0 Sodium 141.8 Potassium 3.9 Chloride 107 Carbon Dioxide 27 Anion Gap 8 BUN 47 H Creatinine 2.24 H Est GFR ( Amer) 34 L Est GFR (Non-Af Amer) 28 L Glucose 97 Calcium 8.0 L Magnesium 2.2 Triglycerides 47 Cholesterol 86.23 LDL Cholesterol Direct 47 VLDL Cholesterol 9.0 L HDL Cholesterol 38 L TSH 3.10 Free T4 1.52 Free T3 pg/mL 2.23 L Blood Type Antibody Screen 07/11/18 07/11/18 09:44 21:19 WBC 10.2 RBC 2.48 L Hgb 8.0 L Hct 24.3 L MCV 98 H MCH 32.3 MCHC 33.0 RDW 18.5 H Plt Count 77 L Seg Neutrophils % Lymphocytes % Monocytes % Eosinophils % Basophils % Absolute Neutrophils Absolute Lymphocytes Absolute Monocytes Absolute Eosinophils Absolute Basophils Sodium Potassium Chloride Carbon Dioxide Anion Gap BUN Creatinine Est GFR ( Amer) Est GFR (Non-Af Amer) Glucose Calcium Magnesium Triglycerides Cholesterol LDL Cholesterol Direct VLDL Cholesterol HDL Cholesterol TSH Free T4 Free T3 pg/mL Blood Type A NEGATIVE Antibody Screen POSITIVE Impressions: Chest X-Ray 07/10/18 17:08 IMPRESSION: Borderline heart size with no pulmonary edema. Assessment & Plan - Plan Summary Plan Summary: open anterior calf wound with about 10-15 cm skin loss, now with granulation tissue min necrosis or need for surgical debridement would cont with dressing changes and iv abx for sepsis
[2018-07-12] MEDS: DIAZEPAM INJ 10 MG/2 ML DISP.SYRIN IV PRN ×2 (03:49→21:29)
[2018-07-12] MEDS: NORMAL SALINE IV SCH ×3 (05:16→21:27)
[2018-07-12] MEDS: MEROPENEM IV SCH ×3 (05:16→21:27)
[2018-07-12] MEDS: HEPARIN SOD (PORCINE) 5,000 UNIT/ML 1 ML SYRINGE SUBCUT SCH ×3 (05:18→21:25)
[2018-07-12] MEDS: PANTOPRAZOLE SODIUM 40 MG TABLET.DR PO SCH (05:20)
[2018-07-12] MEDS: LEVOTHYROXINE SODIUM 0.1 MG TABLET PO SCH (05:20)
[2018-07-12 07:24] LABS: ABSOLUTE EOSINOPHILS # (AUTO) 0.1 10^3/uL (0.0-0.6); ABSOLUTE LYMPHOCYTES (AUTO) 2.4 10^3/uL (0.5-4.7); ABSOLUTE MONOCYTES (AUTO) 0.3 10^3/uL (0.1-1.4); ABSOLUTE NEUT (AUTO) 5.3 10^3/uL (1.7-8.2); EOSINOPHILS % (AUTO) 1.2 % (0-6); HEMATOCRIT 23.2 % (37.9-51.0); LYMPHOCYTES % (AUTO) 29.6 % (13-45); MEAN CORPUSCULAR HEMOGLOBIN 31.7 pg (27.0-33.4); MEAN CORPUSCULAR VOLUME 96 fl (80-97); MONOCYTES % (AUTO) 3.6 % (3-13); RED BLOOD COUNT 2.41 10^6/uL (4.35-5.55); RED CELL DISTRIBUTION WIDTH 17.7 % (11.5-14.0); SEGMENTED NEUTROPHILS % (AUTO) 65.6 % (42-78); TOTAL CELLS COUNTED % (AUTO) 100 %; WHITE BLOOD COUNT 8.1 10^3/uL (4.0-10.5)
[2018-07-12 07:39] LABS: ANION GAP 6 (5-19); BLOOD UREA NITROGEN 46 mg/dL (7-20); CALCIUM 8.3 mg/dL (8.4-10.2); CARBON DIOXIDE 28 mmol/L (22-30); CHLORIDE 108 mmol/L (98-107); GLUCOSE 95 mg/dL (75-110); POTASSIUM 4.1 mmol/L (3.6-5.0); SODIUM 142.4 mmol/L (137-145)
[2018-07-12 07:58] LABS: HEMOGLOBIN 7.6 g/dL (13.5-17.0)
[2018-07-12 07:59] LABS: PLATELET COUNT 73 10^3/uL (150-450)
[2018-07-12] MEDS: PREDNISONE 10 MG TABLET PO SCH (09:36)
[2018-07-12] MEDS: DOCUSATE SODIUM 100 MG CAPSULE PO SCH ×2 (09:36→18:23)
[2018-07-12] MEDS: ASPIRIN 81 MG TABLET, ENT COATED PO SCH (09:36)
[2018-07-12] MEDS: OXYCODONE HCL SR 10 MG TABLET PO SCH ×2 (09:36→21:26)
[2018-07-12] MEDS: ESCITALOPRAM OXALATE 10 MG TABLET PO SCH (09:36)
[2018-07-12] MEDS: NEBIVOLOL HCL 5 MG TABLET PO SCH ×2 (09:37→21:27)
[2018-07-12] MEDS: NYSTATIN/TRIAMCIN OINTMENT 15 GM TP SCH (09:38)
[2018-07-12] MEDS: DOFETILIDE 125 MCG CAPSULE PO SCH ×2 (09:38→21:26)
[2018-07-12] MEDS: NYSTATIN/DEXAMETH/DIPHEN SUSP 120 ML PO SCH ×4 (09:38→21:27)
[2018-07-12] MEDS ORDERED: CEFTRIAXONE 1 GM/D5W RTU 1 GM/50 ML RTUPB IV SCH (10:00)
[2018-07-12] MEDS ORDERED: NORMAL SALINE 250 ML IV PRN ×2 (10:31)
--- NOTE | 2018-07-12 12:48 | PDOC PROGRESS REPORT ---
Subjective Progress Note for:: 07/12/18 Subjective:: 83-year-old male with cellulitis of the right lower extremity, in the vicinity of a large right medial leg wound. The patient is still somewhat confused today. His is at the bedside. He appears to be resting comfortably. They have no complaints. He denies chest pain, shortness of breath, fevers, chills, nausea, or vomiting. He does report pain in his right lower extremity. Reason For Visit: CELLULITIS WITH LYMPHANGITIS Physical Exam Vital Signs: Temp Pulse Resp BP Pulse Ox 97.9 F 64 21 H 107/62 97 07/12/18 07:34 07/12/18 07:34 07/12/18 07:34 07/12/18 07:34 07/12/18 07:34 Intake & Output 07/11/18 07/12/18 07/13/18 06:59 06:59 06:59 Intake Total 50 776 Balance 50 776 Weight 108 kg 111.1 kg General appearance: PRESENT: no acute distress, cooperative Head exam: PRESENT: atraumatic, normocephalic Eye exam: PRESENT: EOMI, PERRLA Mouth exam: PRESENT: moist, neck supple Teeth exam: ABSENT: poor dentation Neck exam: ABSENT: meningismus, tenderness, thyromegaly, tracheal deviation Respiratory exam: PRESENT: unlabored. ABSENT: chest wall tenderness, tachypnea Cardiovascular exam: PRESENT: RRR Pulses: PRESENT: normal radial pulses GI/Abdominal exam: PRESENT: soft. ABSENT: distended, rigid, tenderness Rectal exam: PRESENT: deferred Extremities exam: PRESENT: +2 edema - Bilateral lower extremities, other - Large wound to the right medial lower leg. There is good granulation tissue present. There is no necrosis or purulence. Neurological exam: PRESENT: alert, altered - Slight confusion, awake Psychiatric exam: ABSENT: anxious, depressed Skin exam: PRESENT: erythema - Mild erythema superior to the right medial leg wound.. ABSENT: cyanosis, jaundice Results Laboratory Results: 07/12/18 06:39 07/12/18 06:39 07/11/18 07/11/18 07/12/18 09:44 21:19 06:39 WBC 10.2 8.1 RBC 2.48 L 2.41 L Hgb 8.0 L 7.6 L Hct 24.3 L 23.2 L MCV 98 H 96 MCH 32.3 31.7 MCHC 33.0 33.0 RDW 18.5 H 17.7 H Plt Count 77 L 73 L Seg Neutrophils % 65.6 Lymphocytes % 29.6 Monocytes % 3.6 Eosinophils % 1.2 Basophils % 0.0 Absolute Neutrophils 5.3 Absolute Lymphocytes 2.4 Absolute Monocytes 0.3 Absolute Eosinophils 0.1 Absolute Basophils 0.0 Sodium Potassium Chloride Carbon Dioxide Anion Gap BUN Creatinine Est GFR ( Amer) Est GFR (Non-Af Amer) Glucose Calcium Magnesium Blood Type A NEGATIVE Antibody Screen POSITIVE 07/12/18 06:39 WBC RBC Hgb Hct MCV MCH MCHC RDW Plt Count Seg Neutrophils % Lymphocytes % Monocytes % Eosinophils % Basophils % Absolute Neutrophils Absolute Lymphocytes Absolute Monocytes Absolute Eosinophils Absolute Basophils Sodium 142.4 Potassium 4.1 Chloride 108 H Carbon Dioxide 28 Anion Gap 6 BUN 46 H Creatinine 2.15 H Est GFR ( Amer) 36 L Est GFR (Non-Af Amer) 30 L Glucose 95 Calcium 8.3 L Magnesium 2.3 Blood Type Antibody Screen 07/10/18 18:14 Clean Catch Midstream Urine Culture - Final NO GROWTH 2 DAYS Impressions: Chest X-Ray 07/10/18 17:08 IMPRESSION: Borderline heart size with no pulmonary edema. Assessment & Plan - Diagnosis (1) Chronic venous insufficiency Is this a current diagnosis for this admission?: Yes (2) Cellulitis of right lower extremity Is this a current diagnosis for this admission?: Yes - Plan Summary Plan Summary: This is an 83-year-old male with cellulitis of the right lower extremity, superimposed over chronic venous insufficiency. The wound on the right lower extremity it appears to be healing well. There is good granulation tissue present. There is no purulence or necrosis. I have instructed the nurses to change the dressing twice daily. I have also recommended gentle compression with JENNIFER hose. The patient's erythema is improving. Continue with antibiotics. No surgical intervention is necessary at this time. Will follow.
[2018-07-12] MEDS: RINGERS SOLUTION,LACTATED 1,000 ML IV PRN (14:27)
--- NOTE | 2018-07-12 16:20 | PDOC PROGRESS REPORT ---
Subjective Progress Note for:: 07/12/18 Subjective:: The patient is an 83-year-old male with a past medical history of atrial fibrillation, hypertension, hyperlipidemia, polymyalgia rheumatica (on chronic steroid therapy), hypothyroidism, chronic kidney disease, CLL, and dementia who was admitted 07/10/2018 for cellulitis of the right lower extremity, acute on chronic kidney disease, and altered mental status. The patient was seen on morning rounds with his present. Dr. Cespedes and the nurse were also present. Patient was found resting in bed comfortably on room air and is noted to be awake, alert to self, conversationally appropriate and following simple directions but otherwise confused and disoriented. Patient's states that he is doing much better. She believes increased fatigue and confusion today is related to Valium. We did have a long discussion about Valium not being recommended in patient of his age with dementia due to inability to assess confusion during the day being an infectious/metabolic versus medication reaction. Patient's states that she understands but insists that this continue to be available as needed for acute agitation overnight. Overall, she reports that his leg is looking much better and that he appears to be in less discomfort. She acknowledges that he will likely be discharged home within the next 1 to 2 days before his mental status regains its baseline. Plan is to discharge to home with 24-hour supervision. She has no other questions or concerns at this time. ROS is limited secondary to patient's mental status. No concerns per nursing. Reason For Visit: CELLULITIS WITH LYMPHANGITIS Physical Exam Vital Signs: Temp Pulse Resp BP Pulse Ox 97.9 F 56 L 18 112/66 99 07/12/18 12:00 07/12/18 12:00 07/12/18 12:00 07/12/18 12:00 07/12/18 12:00 Intake & Output 07/11/18 07/12/18 07/13/18 06:59 06:59 06:59 Intake Total 50 776 355 Balance 50 776 355 Weight 108 kg 111.1 kg General appearance: PRESENT: no acute distress, hard of hearing, obese, well- developed, well-nourished Head exam: PRESENT: atraumatic, normocephalic Eye exam: PRESENT: conjunctiva pink, EOMI, PERRLA. ABSENT: scleral icterus Mouth exam: PRESENT: moist, tongue midline Neck exam: ABSENT: carotid bruit, JVD, lymphadenopathy, thyromegaly Respiratory exam: PRESENT: clear to auscultation lo, symmetrical, unlabored. ABSENT: rales, rhonchi, wheezes Cardiovascular exam: PRESENT: RRR, systolic murmur. ABSENT: diastolic murmur, rubs Pulses: PRESENT: normal dorsalis pedis pul Vascular exam: PRESENT: normal capillary refill GI/Abdominal exam: PRESENT: normal bowel sounds, soft. ABSENT: distended, guarding, mass, organolmegaly, rebound, tenderness Rectal exam: PRESENT: deferred Extremities exam: PRESENT: full ROM, +1 edema. ABSENT: calf tenderness, clubbing, pedal edema Neurological exam: PRESENT: alert, awake, oriented to person, CN II-XII grossly intact. ABSENT: oriented to place, oriented to time, oriented to situation, motor sensory deficit Psychiatric exam: PRESENT: appropriate affect, normal mood. ABSENT: homicidal ideation, suicidal ideation Skin exam: PRESENT: dry, warm, other - Chronic venous stasis changes BLE. Anterior wound to right lower extremity with granulation tissue; no surrounding erythema, edema, or drainage. Lymphangitis has resolved. ABSENT: cyanosis, rash Results Laboratory Results: 07/12/18 06:39 07/12/18 06:39 07/11/18 07/11/18 07/12/18 09:44 21:19 06:39 WBC 10.2 8.1 RBC 2.48 L 2.41 L Hgb 8.0 L 7.6 L Hct 24.3 L 23.2 L MCV 98 H 96 MCH 32.3 31.7 MCHC 33.0 33.0 RDW 18.5 H 17.7 H Plt Count 77 L 73 L Seg Neutrophils % 65.6 Lymphocytes % 29.6 Monocytes % 3.6 Eosinophils % 1.2 Basophils % 0.0 Absolute Neutrophils 5.3 Absolute Lymphocytes 2.4 Absolute Monocytes 0.3 Absolute Eosinophils 0.1 Absolute Basophils 0.0 Sodium Potassium Chloride Carbon Dioxide Anion Gap BUN Creatinine Est GFR ( Amer) Est GFR (Non-Af Amer) Glucose Calcium Magnesium Blood Type A NEGATIVE Antibody Screen POSITIVE 07/12/18 06:39 WBC RBC Hgb Hct MCV MCH MCHC RDW Plt Count Seg Neutrophils % Lymphocytes % Monocytes % Eosinophils % Basophils % Absolute Neutrophils Absolute Lymphocytes Absolute Monocytes Absolute Eosinophils Absolute Basophils Sodium 142.4 Potassium 4.1 Chloride 108 H Carbon Dioxide 28 Anion Gap 6 BUN 46 H Creatinine 2.15 H Est GFR ( Amer) 36 L Est GFR (Non-Af Amer) 30 L Glucose 95 Calcium 8.3 L Magnesium 2.3 Blood Type Antibody Screen 07/10/18 18:14 Clean Catch Midstream Urine Culture - Final NO GROWTH 2 DAYS Impressions: Chest X-Ray 07/10/18 17:08 IMPRESSION: Borderline heart size with no pulmonary edema. Assessment and Plan - Diagnosis (1) Acute kidney injury superimposed on CKD Is this a current diagnosis for this admission?: Yes Plan: Patient is admitted with a serum creatinine of 2.32, it is today is 2.15. Patient's baseline creatinine is around 1.8. Acute kidney injury may be secondary to poor oral intake. Avoid nephrotoxic medications as able. Continue gentle IV fluids. Watch closely for fluid volume overload. (2) Anemia with chronic illness Is this a current diagnosis for this admission?: Yes Plan: Admitted with a hemoglobin of 7.9; 7.6 today. Multifactorial secondary to CLL and poor nutrition. He has already received 1 unit of blood cells. We will provide an additional unit PRBC. Start daily multivitamin and ferrous sulfate supplementation. (3) Cellulitis of right leg without foot Is this a current diagnosis for this admission?: Yes Plan: Blood cultures are negative at 24 hours. Wound culture (superficial) demonstrates gram-positive cocci in clusters and 2 strains of gram-negative rods. Will likely result similar to previous wound culture obtained 1 week ago demonstrating staph aureus, Klebsiella, and Enterobacter. Patient was empirically placed on meropenem; will adjust antibiotics as cultures result.. He remains afebrile with normal WBC. Surgery is consulted; wound care per their expertise. (4) Atrial fibrillation Qualifiers: Atrial fibrillation type: persistent Qualified Code(s): I48.1 - Persistent atrial fibrillation Is this a current diagnosis for this admission?: Yes Plan: Patient has history of chronic atrial fibrillation. Rate controlled on home dose Tikosyn and Bystolic Not on anticoagulation at home; high risk secondary to age, dementia, history of falls Patient is presently on a heparin 5000 units subcu every 8 hours. (5) CLL (chronic lymphocytic leukemia) Is this a current diagnosis for this admission?: No Plan: Patient has a history of CLL. With a hemoglobin of 7.6 and WBC count of 8.1. Heme/Onc consultation is requested (6) Polymyalgia rheumatica Is this a current diagnosis for this admission?: Yes Plan: Continue home dose prednisone. (7) Dementia Is this a current diagnosis for this admission?: Yes Plan: Supportive care. Fall precautions. One-to-one sitter for safety. Continue home dose Seroquel nightly. Continue home dose of Lexapro. Avoid benzodiazepines as much as able; have decreased IV Valium to 1 mg every 4 hours as needed. - Time Time Spent with patient: 35 or more minutes Medications reviewed and adjusted accordingly: Yes Anticipated discharge: Home with Homehealth Within: within 48 hours
[2018-07-12] MEDS: TAMSULOSIN HCL 0.4 MG CAP.SR.24H PO SCH (18:22)
[2018-07-12 20:36] LABS: ABSOLUTE LYMPHOCYTES (AUTO) 1.8 10^3/uL (0.5-4.7); ABSOLUTE MONOCYTES (AUTO) 0.2 10^3/uL (0.1-1.4); ABSOLUTE NEUT (AUTO) 6.4 10^3/uL (1.7-8.2); EOSINOPHILS % (AUTO) 0.1 % (0-6); HEMATOCRIT 26.2 % (37.9-51.0); HEMOGLOBIN 8.7 g/dL (13.5-17.0); LYMPHOCYTES % (AUTO) 21.9 % (13-45); MEAN CORPUSCULAR HEMOGLOBIN 31.6 pg (27.0-33.4); MEAN CORPUSCULAR HGB CONC 33.2 g/dL (32.0-36.0); MEAN CORPUSCULAR VOLUME 95 fl (80-97); MONOCYTES % (AUTO) 2.3 % (3-13); PLATELET COUNT 77 10^3/uL (150-450); RED BLOOD COUNT 2.76 10^6/uL (4.35-5.55); RED CELL DISTRIBUTION WIDTH 19.2 % (11.5-14.0); SEGMENTED NEUTROPHILS % (AUTO) 75.7 % (42-78); TOTAL CELLS COUNTED % (AUTO) 100 %; WHITE BLOOD COUNT 8.4 10^3/uL (4.0-10.5)
[2018-07-12] MEDS: PRAMIPEXOLE DI-HCL 0.5 MG TABLET PO SCH (21:26)
[2018-07-12] MEDS: QUETIAPINE FUMARATE 25 MG TABLET PO SCH (21:27)
[2018-07-13] MEDS: HEPARIN SOD (PORCINE) 5,000 UNIT/ML 1 ML SYRINGE SUBCUT SCH ×3 (05:05→21:41)
[2018-07-13] MEDS: PANTOPRAZOLE SODIUM 40 MG TABLET.DR PO SCH (05:08)
[2018-07-13] MEDS: NORMAL SALINE IV SCH (05:08)
[2018-07-13] MEDS: LEVOTHYROXINE SODIUM 0.1 MG TABLET PO SCH (05:08)
[2018-07-13] MEDS: MEROPENEM IV SCH (05:08)
--- NOTE | 2018-07-13 08:52 | PDOC CONSULTATION ---
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 He has been following Dr. Anguiano of the [facility], and he tells me until recently his white count had been stable in the 12-13 range and over the last few months it has been even lower. He has never required treatment of his CLL, only monitoring. His hemoglobin has been ranging above 10 and platelets above 100 until recently. Unfortunately several months ago he was admitted with sepsis secondary to leg infections, he was here during that time, he was then discharged home but within 24 hours of discharge she unfortunately fell and had severe trauma to the right pretibial region. His showed me pictures and unfortunately the trauma was so severe that bone was exposed, he lost a lot of blood, he was admitted at the [facility] during that time, and she tells me he received in total about 18 units of different blood products including packed red cells, platelets, and FFP. Ultimately the bleeding was controlled but he has been more anemic since then. He has been seen by the wound care clinic and recently in that region seem to have a cellulitis, and was admitted for IV antibiotics. Here his hemoglobin did dip down in the 7 range and he was given 1 unit of packed red blood cells with hemoglobin improvement to 8.7. He has never been on any erythropoietin stimulating agents. Past Medical History Cardiac Medical History: Reports: Atrial Fibrillation, Hyperlipidema, Hypertension Pulmonary Medical History: Reports: Sleep Apnea Denies: Asthma, Chronic Obstructive Pulmonary Disease (COPD) EENT Medical History: Reports: Other - Bruises easily Denies: Ears - Hearing aids, Throat - Dysphagia Neurological Medical History: Reports: Other - Chronic demyelinating disorder Denies: Hemorrhagic CVA, Ischemic CVA, Seizures Endocrine Medical History: Reports: Hypothyroidism Denies: Diabetes Mellitus Type 1, Diabetes Mellitus Type 2, Hyperthyroidism Renal/ Medical History: Reports: Chronic Kidney Disease Denies: Nephrolithiasis Malignancy Medical History: Reports: Leukemia - CLL GI Medical History: Denies: Cirrhosis, Hepatitis Musculoskeltal Medical History: Reports: Arthritis - Rheumatoid arthritis, Other - Polymyalgia rheumatica Denies: Gout Skin Medical History: Denies: Eczema, Psoriasis Psychiatric Medical History: Reports: Dementia - Mild changes with short-term memory and attention deficits Denies: Alcohol Dependency, Depression, Substance Abuse, Tobacco Dependency Traumatic Medical History: Reports: None Hematology: Reports: Anemia - Attributed to CLL, Other - Bruises easily Denies: Bleeding Tendencies Infectious Medical History: Reports: None Past Surgical History Past Surgical History: Reports: Appendectomy, Herniorrhaphy - Left inguinal, Orthopedic Surgery - Right ankle reconstruction, multilevel spinal fusion, Vascular Surgery - Varicose vein surgery Social History Information Source: Patient Lives with: Spouse/Significant other, Other - Rehab facility Smoking Status: Former Smoker Frequency of Alcohol Use: Rare Hx Recreational Drug Use: No Drugs: None Hx Prescription Drug Abuse: No - Advance Directive Resuscitation Status: Full Code Family History Family History: CAD, Other - Alzheimer's dementia Parental Family History Reviewed: Yes Children Family History Reviewed: Yes Sibling(s) Family History Reviewed.: Yes Medication/Allergy Home Medications: Furosemide 20 mg PO DAILY 04/07/17 Levothyroxine Sodium [Synthroid 0.1 mg Tablet] 0.1 mg PO DAILY 04/07/17 Aspirin [Ecotrin] 81 mg PO DAILY 06/03/18 Dofetilide [Tikosyn 125 Mcg Capsule] 125 mcg PO Q12 06/03/18 Esomeprazole Magnesium [Nexium] 20 mg PO QPM 06/03/18 Nebivolol HCl [Bystolic 10 mg Tablet] 5 mg PO Q12 06/03/18 Pramipexole Di-HCl [Mirapex 0.5 Mg Tablet] 1 mg PO QHS 06/03/18 Prednisone [Deltasone 10 mg Tablet] 15 mg PO DAILY 06/03/18 Tamsulosin HCl [Flomax 0.4 mg Cap.sr] 0.4 mg PO QPM 06/03/18 Allergies/Adverse Reactions: NSAIDS (Non-Steroidal Anti-Inflamma Adverse Reaction (Intermediate, Verified 01/30/16 23:41) Review of Systems Constitutional: ABSENT: chills, fever(s), headache(s), weight gain, weight loss Eyes: ABSENT: visual disturbances Ears: ABSENT: hearing changes Cardiovascular: ABSENT: chest pain, dyspnea on exertion, edema, orthropnea, palpitations Respiratory: ABSENT: cough, hemoptysis Gastrointestinal: ABSENT: abdominal pain, constipation, diarrhea, hematemesis, hematochezia, nausea, vomiting Genitourinary: ABSENT: dysuria, hematuria Musculoskeletal: ABSENT: joint swelling Integumentary: ABSENT: rash, wounds Neurological: ABSENT: abnormal gait, abnormal speech, confusion, dizziness, focal weakness, syncope Psychiatric: ABSENT: anxiety, depression, homidical ideation, suicidal ideation Endocrine: ABSENT: cold intolerance, heat intolerance, polydipsia, polyuria Hematologic/Lymphatic: ABSENT: easy bleeding, easy bruising Physical Exam Vital Signs: Temp Pulse Resp BP Pulse Ox 98.0 F 64 18 133/80 H 97 07/13/18 07:42 07/13/18 07:42 07/13/18 07:42 07/13/18 07:42 07/13/18 07:42 Intake & Output 07/12/18 07/13/18 07/14/18 06:59 06:59 06:59 Intake Total 776 2872 Output Total 1425 Balance 776 1447 Weight 111.1 kg 114.3 kg General appearance: PRESENT: no acute distress, well-developed, well-nourished Head exam: PRESENT: atraumatic, normocephalic Eye exam: PRESENT: conjunctiva pink, EOMI, PERRLA. ABSENT: scleral icterus Ear exam: PRESENT: normal external ear exam Mouth exam: PRESENT: moist, tongue midline Neck exam: ABSENT: carotid bruit, JVD, lymphadenopathy, thyromegaly Respiratory exam: PRESENT: clear to auscultation lo. ABSENT: rales, rhonchi, wheezes Cardiovascular exam: PRESENT: RRR. ABSENT: diastolic murmur, rubs, systolic murmur Pulses: PRESENT: normal dorsalis pedis pul Vascular exam: PRESENT: normal capillary refill GI/Abdominal exam: PRESENT: normal bowel sounds, soft. ABSENT: distended, guarding, mass, organolmegaly, rebound, tenderness Rectal exam: PRESENT: deferred Extremities exam: PRESENT: full ROM. ABSENT: calf tenderness, clubbing, pedal edema Neurological exam: PRESENT: alert, awake, oriented to person, oriented to place, oriented to time, oriented to situation, CN II-XII grossly intact. ABSENT: motor sensory deficit Psychiatric exam: PRESENT: appropriate affect, normal mood. ABSENT: homicidal ideation, suicidal ideation Skin exam: PRESENT: dry, intact, warm. ABSENT: cyanosis, rash Results Laboratory Results: 07/12/18 20:00 07/12/18 06:39 07/11/18 07/12/18 09:44 20:00 WBC 8.4 RBC 2.76 L Hgb 8.7 L Hct 26.2 L MCV 95 MCH 31.6 MCHC 33.2 RDW 19.2 H Plt Count 77 L Seg Neutrophils % 75.7 Lymphocytes % 21.9 Monocytes % 2.3 L Eosinophils % 0.1 Basophils % 0.0 Absolute Neutrophils 6.4 Absolute Lymphocytes 1.8 Absolute Monocytes 0.2 Absolute Eosinophils 0.0 Absolute Basophils 0.0 Blood Type A NEGATIVE Antibody Screen POSITIVE 07/10/18 18:14 Clean Catch Midstream Urine Culture - Final NO GROWTH 2 DAYS Impressions: Chest X-Ray 07/10/18 17:08 IMPRESSION: Borderline heart size with no pulmonary edema. Assessment & Plan - Diagnosis (1) CLL (chronic lymphocytic leukemia) Is this a current diagnosis for this admission?: Yes Plan: I believe it is stable, I do not believe it is causing his anemia. I have given them my card and we can start following him here. They will decide as an o utpatient. I will follow while in house. (2) Anemia with chronic illness Is this a current diagnosis for this admission?: Yes (3) Anemia Qualifiers: Anemia type: other cause Other causes of anemia: acute posthemorrhagic Qualified Code(s): D62 - Acute posthemorrhagic anemia Is this a current diagnosis for this admission?: Yes Plan: I believe the anemia was previously secondary to blood loss, also an element of chronic disease. Once we have stabilization of his blood counts, I would consider initiating erythropoietin stability agents. But I would do this as an outpatient. Follow-up CBC today. - Time Time Spent: Greater than 70 Minutes - Inpatient Certification Based on my medical assessment, after consideration of the patient's comorbidities, presenting symptoms, or acuity I expect that the services needed warrant INPATIENT care.: Yes I certify that my determination is in accordance with my understanding of Medicare's requirements for reasonable and necessary INPATIENT services [42 CFR 412.3e].: Yes Medical Necessity: Risk of Complication if Not Cared For in Hospital
[2018-07-13] MEDS ORDERED: FERROUS SULFATE 325 MG TABLET PO SCH (10:00)
[2018-07-13] MEDS ORDERED: MULTIVITAMIN TABLET PO SCH (10:00)
--- NOTE | 2018-07-13 10:10 | PDOC PROGRESS REPORT ---
Subjective Progress Note for:: 07/13/18 Subjective:: Patient resting comfortably. Reason For Visit: CELLULITIS WITH LYMPHANGITIS Physical Exam Vital Signs: Temp Pulse Resp BP Pulse Ox 98.0 F 64 18 133/80 H 97 07/13/18 07:42 07/13/18 07:42 07/13/18 07:42 07/13/18 07:42 07/13/18 07:42 Intake & Output 07/12/18 07/13/18 07/14/18 06:59 06:59 06:59 Intake Total 776 2872 Output Total 1425 Balance 776 1447 Weight 111.1 kg 114.3 kg General appearance: PRESENT: no acute distress Musculoskeletal exam: PRESENT: other - Chronic changes to right toes; no evidence of active infection Right below the knee chronic wound with fairly clean granulating surface, with perimeter epithelial contraction. Mild cellular slough wiped off with 4 x 4 Results Laboratory Results: 07/12/18 20:00 07/12/18 06:39 07/11/18 07/12/18 09:44 20:00 WBC 8.4 RBC 2.76 L Hgb 8.7 L Hct 26.2 L MCV 95 MCH 31.6 MCHC 33.2 RDW 19.2 H Plt Count 77 L Seg Neutrophils % 75.7 Lymphocytes % 21.9 Monocytes % 2.3 L Eosinophils % 0.1 Basophils % 0.0 Absolute Neutrophils 6.4 Absolute Lymphocytes 1.8 Absolute Monocytes 0.2 Absolute Eosinophils 0.0 Absolute Basophils 0.0 Blood Type A NEGATIVE Antibody Screen POSITIVE 07/10/18 18:14 Clean Catch Midstream Urine Culture - Final NO GROWTH 2 DAYS Impressions: Chest X-Ray 07/10/18 17:08 IMPRESSION: Borderline heart size with no pulmonary edema. Assessment & Plan - Diagnosis (1) Chronic wound of extremity Is this a current diagnosis for this admission?: Yes Plan: Impression: Chronic wound right lower extremity status post traumatic soft tissue laceration 6 weeks ago with wound healing successfully by secondary intention. Recommendations: 1. Continue excellent local wound care with soapy water washes Xeroform and 4 x 4's; this wound will continue to heal closed by secondary intention 2. Management of chronic lymphedema more challenging; nonetheless some form of compression garment indicated when patient upright. 3. We will sign off at this point. Reconsult if clinically indicated.
[2018-07-13] MEDS: OXYCODONE HCL SR 10 MG TABLET PO SCH ×2 (10:29→21:41)
[2018-07-13 10:49] LABS: ABSOLUTE EOSINOPHILS # (AUTO) 0.1 10^3/uL (0.0-0.6); ABSOLUTE LYMPHOCYTES (AUTO) 1.8 10^3/uL (0.5-4.7); ABSOLUTE MONOCYTES (AUTO) 0.3 10^3/uL (0.1-1.4); ABSOLUTE NEUT (AUTO) 3.7 10^3/uL (1.7-8.2); BASOPHILS % (AUTO) 0.1 % (0-2); EOSINOPHILS % (AUTO) 1.6 % (0-6); HEMATOCRIT 25.1 % (37.9-51.0); HEMOGLOBIN 8.4 g/dL (13.5-17.0); LYMPHOCYTES % (AUTO) 30.4 % (13-45); MEAN CORPUSCULAR HEMOGLOBIN 31.2 pg (27.0-33.4); MEAN CORPUSCULAR HGB CONC 33.5 g/dL (32.0-36.0); MEAN CORPUSCULAR VOLUME 93 fl (80-97); MONOCYTES % (AUTO) 4.5 % (3-13); RED BLOOD COUNT 2.69 10^6/uL (4.35-5.55); RED CELL DISTRIBUTION WIDTH 19.6 % (11.5-14.0); SEGMENTED NEUTROPHILS % (AUTO) 63.4 % (42-78); TOTAL CELLS COUNTED % (AUTO) 100 %; WHITE BLOOD COUNT 5.9 10^3/uL (4.0-10.5)
[2018-07-13 11:09] LABS: PLATELET COUNT 73 10^3/uL (150-450)
[2018-07-13 11:10] LABS: ANION GAP 9 (5-19); BLOOD UREA NITROGEN 44 mg/dL (7-20); CALCIUM 8.1 mg/dL (8.4-10.2); CARBON DIOXIDE 27 mmol/L (22-30); CHLORIDE 108 mmol/L (98-107); GLUCOSE 103 mg/dL (75-110); POTASSIUM 4.2 mmol/L (3.6-5.0); SODIUM 143.5 mmol/L (137-145)
[2018-07-13] MEDS: PREDNISONE 10 MG TABLET PO SCH (13:27)
[2018-07-13] MEDS: ASPIRIN 81 MG TABLET, ENT COATED PO SCH (13:30)
[2018-07-13] MEDS: ESCITALOPRAM OXALATE 10 MG TABLET PO SCH (13:30)
[2018-07-13] MEDS: DOCUSATE SODIUM 100 MG CAPSULE PO SCH ×2 (13:31→20:28)
[2018-07-13] MEDS: OXYCODONE HCL IR 5 MG TABLET PO PRN ×2 (13:32→20:33)
[2018-07-13] MEDS: NYSTATIN/DEXAMETH/DIPHEN SUSP 120 ML PO SCH ×4 (13:34→21:41)
[2018-07-13] MEDS: NYSTATIN/TRIAMCIN OINTMENT 15 GM TP SCH (13:34)
[2018-07-13] MEDS: DOFETILIDE 125 MCG CAPSULE PO SCH ×2 (13:35→21:40)
[2018-07-13] MEDS: NEBIVOLOL HCL 5 MG TABLET PO SCH ×2 (13:35→21:40)
[2018-07-13] MEDS: CEPHALEXIN 500 MG CAPSULE PO SCH ×2 (13:36→21:40)
[2018-07-13] MEDS ORDERED: MEROPENEM 500 MG in NORMAL SALINE 50 ML IV SCH (14:00)
--- NOTE | 2018-07-13 17:07 | PDOC PROGRESS REPORT ---
Subjective Progress Note for:: 07/13/18 Subjective:: The patient is an 83-year-old male with a past medical history of atrial fibrillation, hypertension, hyperlipidemia, polymyalgia rheumatica (on chronic steroid therapy), hypothyroidism, chronic kidney disease, CLL, and dementia who was admitted 07/10/2018 for cellulitis of the right lower extremity, acute on chronic kidney disease, and altered mental status. The patient was seen on afternoon rounds with his present. Patient was found resting in bed comfortably on room air and is noted to be awake, alert to self, and place. He is much more alert today. He is conversationally appropriate and following commands. Patient's states that he is doing much better. They are hopeful to discharge to home with home health services today after renal ultrasound is complete. Dr. Clark has approved discharge following ultrasound with outpatient follow up. Patient denies fever, chills, chest pain, palpitations, dyspnea, orthopnea, abdominal pain, nausea vomiting and diarrhea. His only complaint is his generalized arthritic pain; slightly worse than baseline due to the hospital bed but responding well to current pain medications. They have no other questions or concerns at this time. No concerns per nursing. Reason For Visit: CELLULITIS WITH LYMPHANGITIS Physical Exam Vital Signs: Temp Pulse Resp BP Pulse Ox 97.5 F 61 18 138/82 H 95 07/13/18 16:10 07/13/18 16:10 07/13/18 16:10 07/13/18 16:10 07/13/18 16:10 Intake & Output 07/12/18 07/13/18 07/14/18 06:59 06:59 06:59 Intake Total 776 2872 Output Total 1425 Balance 776 1447 Weight 111.1 kg 114.3 kg General appearance: PRESENT: no acute distress, cooperative, hard of hearing, obese, well-developed, well-nourished Head exam: PRESENT: atraumatic, normocephalic Eye exam: PRESENT: conjunctiva pink, EOMI, PERRLA. ABSENT: scleral icterus Mouth exam: PRESENT: moist, tongue midline Neck exam: ABSENT: carotid bruit, JVD, lymphadenopathy, thyromegaly Respiratory exam: PRESENT: clear to auscultation lo, symmetrical, unlabored. ABSENT: rales, rhonchi, wheezes Cardiovascular exam: PRESENT: RRR, systolic murmur. ABSENT: diastolic murmur, rubs Pulses: PRESENT: normal dorsalis pedis pul Vascular exam: PRESENT: normal capillary refill GI/Abdominal exam: PRESENT: normal bowel sounds, soft. ABSENT: distended, guarding, mass, organolmegaly, rebound, tenderness Rectal exam: PRESENT: deferred Extremities exam: PRESENT: full ROM, +2 edema - BLE; right slightly worse than left. ABSENT: calf tenderness, clubbing, pedal edema Neurological exam: PRESENT: alert, awake, oriented to person, oriented to place, oriented to time, CN II-XII grossly intact, other - Intermittent confusion. ABSENT: motor sensory deficit Psychiatric exam: PRESENT: appropriate affect, normal mood. ABSENT: homicidal ideation, suicidal ideation Skin exam: PRESENT: dry, warm, other - Chronic venous stasis changes BLE. Anterior wound to right lower extremity with granulation tissue; no surrounding erythema, edema, or drainage. Lymphangitis has resolved. ABSENT: cyanosis, rash Results Laboratory Results: 07/13/18 10:36 07/13/18 10:36 07/12/18 07/13/18 07/13/18 20:00 10:36 10:36 WBC 8.4 5.9 RBC 2.76 L 2.69 L Hgb 8.7 L 8.4 L Hct 26.2 L 25.1 L MCV 95 93 MCH 31.6 31.2 MCHC 33.2 33.5 RDW 19.2 H 19.6 H Plt Count 77 L 73 L Seg Neutrophils % 75.7 63.4 Lymphocytes % 21.9 30.4 Monocytes % 2.3 L 4.5 Eosinophils % 0.1 1.6 Basophils % 0.0 0.1 Absolute Neutrophils 6.4 3.7 Absolute Lymphocytes 1.8 1.8 Absolute Monocytes 0.2 0.3 Absolute Eosinophils 0.0 0.1 Absolute Basophils 0.0 0.0 Sodium 143.5 Potassium 4.2 Chloride 108 H Carbon Dioxide 27 Anion Gap 9 BUN 44 H Creatinine 1.84 H Est GFR ( Amer) 43 L Est GFR (Non-Af Amer) 35 L Glucose 103 Calcium 8.1 L Magnesium 2.3 07/11/18 19:00 Leg - Right Cellulitis Gram Stain - Final Impressions: Chest X-Ray 07/10/18 17:08 IMPRESSION: Borderline heart size with no pulmonary edema. Assessment and Plan - Diagnosis (1) Acute kidney injury superimposed on CKD Is this a current diagnosis for this admission?: Yes Plan: Resolved; creatinine has returned to baseline of 1.84. Acute kidney injury may be secondary to poor oral intake. Avoid nephrotoxic medications as able. Continue gentle IV fluids. Watch closely for fluid volume overload. Nephrology is consulted; have ordered renal ultrasound. (2) Anemia with chronic illness Is this a current diagnosis for this admission?: Yes Plan: Admitted with a hemoglobin of 7.9; 8.4 today. Multifactorial secondary to CLL and poor nutrition. He has received 2 units PRBC. Continue daily multivitamin and ferrous sulfate supplementation. (3) Cellulitis of right leg without foot Is this a current diagnosis for this admission?: Yes Plan: Blood cultures are negative at 48 hours. Wound culture (superficial) demonstrates gram-positive cocci in clusters and 2 strains of gram-negative rods. Will likely result similar to previous wound culture obtained 1 week ago demonstrating staph aureus, Klebsiella, and Enterobacter. Patient was empirically placed on meropenem; discontinued on day #3. Patient is transition to p.o. Keflex to complete course of antibiotics post discharge (Bactrim interacts with patient's Tikosyn, Levaquin avoided secondary to tendon rupture risk in elderly patients) He remains afebrile with normal WBC. Surgery is consulted; wound care per their expertise. (4) Atrial fibrillation Qualifiers: Atrial fibrillation type: persistent Qualified Code(s): I48.1 - Persistent atrial fibrillation Is this a current diagnosis for this admission?: Yes Plan: Patient has history of chronic atrial fibrillation. Rate controlled on home dose Tikosyn and Bystolic Not on anticoagulation at home; high risk secondary to age, dementia, history of falls Patient is presently on a heparin 5000 units subcu every 8 hours. (5) CLL (chronic lymphocytic leukemia) Is this a current diagnosis for this admission?: Yes Plan: Patient has a history of CLL. Heme/Onc consultation; appreciate Dr. Light's evaluation recommendations. (6) Polymyalgia rheumatica Is this a current diagnosis for this admission?: Yes Plan: Continue home dose prednisone. (7) Dementia Is this a current diagnosis for this admission?: Yes Plan: Supportive care. Fall precautions. One-to-one sitter for safety. Continue home dose Seroquel nightly. Continue home dose of Lexapro. Avoid benzodiazepines as much as able; have decreased IV Valium to 1 mg every 4 hours as needed. - Time Time Spent with patient: 15-24 minutes Medications reviewed and adjusted accordingly: Yes Anticipated discharge: Home with Homehealth Within: within 24 hours
--- NOTE | 2018-07-13 17:49 | RADIOLOGY REPORT (SQ) ---
EXAM DESCRIPTION: U/S RETROPERITON (RENAL/AORTA) COMPLETED DATE/TIME: 07/13/2018 5:38 pm REASON FOR STUDY: Having trouble urineing COMPARISON: None. TECHNIQUE: Dynamic and static grayscale images acquired of the kidneys and bladder and recorded on P ACS. Additional selected color Doppler and spectral images recorded. LIMITATIONS: None. FINDINGS: RIGHT KIDNEY: Normal size. Normal echogenicity. No solid or suspicious masses. No hydronep hrosis. No calcifications. LEFT KIDNEY: Normal size. Normal echogenicity. No solid or suspicious masses. No hydronephrosis. No calcifications. BLADDER: No masses. OTHER FINDINGS: Splenomegaly, 17 cm length. IMPRESSION: No evidence for urinary obstruction. Splenomegaly, 17 cm length. TECHNICAL DOCUMENTATION: JOB ID: [id number] [id number] 2010 [employer]- All Rights Reserved Reading location - IP/workstation name: [employer]
[2018-07-13] MEDS: QUETIAPINE FUMARATE 25 MG TABLET PO SCH (21:38)
[2018-07-13] MEDS: PRAMIPEXOLE DI-HCL 0.5 MG TABLET PO SCH (21:40)
[2018-07-13] MEDS: TAMSULOSIN HCL 0.4 MG CAP.SR.24H PO SCH (21:47)
[2018-07-13] MEDS: RINGERS SOLUTION,LACTATED 1,000 ML IV PRN (22:12)
[2018-07-14] MEDS: DIAZEPAM INJ 10 MG/2 ML DISP.SYRIN IV PRN (03:21)
[2018-07-14] MEDS: OXYCODONE HCL IR 5 MG TABLET PO PRN (05:02)
[2018-07-14] MEDS: PANTOPRAZOLE SODIUM 40 MG TABLET.DR PO SCH (05:02)
[2018-07-14] MEDS: HEPARIN SOD (PORCINE) 5,000 UNIT/ML 1 ML SYRINGE SUBCUT SCH (05:03)
[2018-07-14] MEDS: LEVOTHYROXINE SODIUM 0.1 MG TABLET PO SCH (05:03)
[2018-07-14 07:04] LABS: HEMATOCRIT 25.7 % (37.9-51.0); HEMOGLOBIN 8.5 g/dL (13.5-17.0); MEAN CORPUSCULAR HEMOGLOBIN 31.2 pg (27.0-33.4); MEAN CORPUSCULAR HGB CONC 32.9 g/dL (32.0-36.0); MEAN CORPUSCULAR VOLUME 95 fl (80-97); RED BLOOD COUNT 2.71 10^6/uL (4.35-5.55); RED CELL DISTRIBUTION WIDTH 19.3 % (11.5-14.0); WHITE BLOOD COUNT 5.8 10^3/uL (4.0-10.5)
[2018-07-14 07:26] LABS: ANION GAP 7 (5-19); BLOOD UREA NITROGEN 43 mg/dL (7-20); CALCIUM 8.2 mg/dL (8.4-10.2); CARBON DIOXIDE 28 mmol/L (22-30); CHLORIDE 109 mmol/L (98-107); GLUCOSE 92 mg/dL (75-110); POTASSIUM 4.5 mmol/L (3.6-5.0); SODIUM 144.1 mmol/L (137-145)
[2018-07-14 07:41] LABS: PLATELET COUNT 80 10^3/uL (150-450)
--- NOTE | 2018-07-14 08:10 | PDOC PROGRESS REPORT ---
Subjective Progress Note for:: 07/14/18 Subjective:: Seems better this morning Reason For Visit: CELLULITIS WITH LYMPHANGITIS Physical Exam Vital Signs: Temp Pulse Resp BP Pulse Ox 97.4 F 59 L 20 174/58 H 97 07/14/18 07:55 07/14/18 07:55 07/14/18 07:55 07/14/18 07:55 07/14/18 07:55 Intake & Output 07/13/18 07/14/18 07/15/18 06:59 06:59 06:59 Intake Total 2872 1100 Output Total 1425 200 Balance 1447 900 Weight 114.3 kg 117.1 kg General appearance: PRESENT: no acute distress, well-developed, well-nourished Head exam: PRESENT: atraumatic, normocephalic Eye exam: PRESENT: conjunctiva pink, EOMI, PERRLA. ABSENT: scleral icterus Ear exam: PRESENT: normal external ear exam Mouth exam: PRESENT: moist, tongue midline Neck exam: ABSENT: carotid bruit, JVD, lymphadenopathy, thyromegaly Respiratory exam: PRESENT: clear to auscultation lo. ABSENT: rales, rhonchi, wheezes Cardiovascular exam: PRESENT: RRR. ABSENT: diastolic murmur, rubs, systolic murmur Pulses: PRESENT: normal dorsalis pedis pul Vascular exam: PRESENT: normal capillary refill GI/Abdominal exam: PRESENT: normal bowel sounds, soft. ABSENT: distended, guarding, mass, organolmegaly, rebound, tenderness Rectal exam: PRESENT: deferred Extremities exam: PRESENT: full ROM. ABSENT: calf tenderness, clubbing, pedal edema Neurological exam: PRESENT: alert, awake, oriented to person, oriented to place, oriented to time, oriented to situation, CN II-XII grossly intact. ABSENT: motor sensory deficit Psychiatric exam: PRESENT: appropriate affect, normal mood. ABSENT: homicidal ideation, suicidal ideation Skin exam: PRESENT: dry, intact, warm. ABSENT: cyanosis, rash Results Laboratory Results: 07/14/18 05:46 07/14/18 05:46 07/13/18 07/13/18 07/14/18 10:36 10:36 05:46 WBC 5.9 5.8 RBC 2.69 L 2.71 L Hgb 8.4 L 8.5 L Hct 25.1 L 25.7 L MCV 93 95 MCH 31.2 31.2 MCHC 33.5 32.9 RDW 19.6 H 19.3 H Plt Count 73 L 80 L Seg Neutrophils % 63.4 Lymphocytes % 30.4 Monocytes % 4.5 Eosinophils % 1.6 Basophils % 0.1 Absolute Neutrophils 3.7 Absolute Lymphocytes 1.8 Absolute Monocytes 0.3 Absolute Eosinophils 0.1 Absolute Basophils 0.0 Sodium 143.5 Potassium 4.2 Chloride 108 H Carbon Dioxide 27 Anion Gap 9 BUN 44 H Creatinine 1.84 H Est GFR ( Amer) 43 L Est GFR (Non-Af Amer) 35 L Glucose 103 Calcium 8.1 L Magnesium 2.3 07/14/18 05:46 WBC RBC Hgb Hct MCV MCH MCHC RDW Plt Count Seg Neutrophils % Lymphocytes % Monocytes % Eosinophils % Basophils % Absolute Neutrophils Absolute Lymphocytes Absolute Monocytes Absolute Eosinophils Absolute Basophils Sodium 144.1 Potassium 4.5 Chloride 109 H Carbon Dioxide 28 Anion Gap 7 BUN 43 H Creatinine 1.83 H Est GFR ( Amer) 43 L Est GFR (Non-Af Amer) 36 L Glucose 92 Calcium 8.2 L Magnesium 07/11/18 19:00 Leg - Right Cellulitis Gram Stain - Final 07/11/18 19:00 Leg - Right Cellulitis Wound Culture - Final Staphylococcus Aureus Pseudomonas Aeruginosa Klebsiella Pneumoniae Impressions: Chest X-Ray 07/10/18 17:08 IMPRESSION: Borderline heart size with no pulmonary edema. Renal Ultrasound 07/13/18 14:21 IMPRESSION: No evidence for urinary obstruction. Splenomegaly, 17 cm length. Assessment & Plan - Diagnosis (1) CLL (chronic lymphocytic leukemia) Is this a current diagnosis for this admission?: Yes Plan: Stable, not causing the cytopenias, more likely to be reactive to other processes (2) Anemia with chronic illness Is this a current diagnosis for this admission?: Yes Plan: Will need further work-up as an outpatient, hemoglobin stable for 2 days, will follow, patient will need follow-up with us within 2 to 3 weeks of discharge (3) Anemia Qualifiers: Anemia type: other cause Other causes of anemia: acute posthemorrhagic Qualified Code(s): D62 - Acute posthemorrhagic anemia Is this a current diagnosis for this admission?: Yes
[2018-07-14 16:11] VITALS: BP 119/71
--- NOTE | 2018-07-14 20:18 | PDOC CONSULTATION ---
Consultation Consult Date: 07/14/18 Consult reason:: TITO on CKD 3. History of Present Illness Admission Date/PCP: 07/10/18 20:03 ISMAEL HARRIS MD History of Present Illness: ROSAURA LYONS JR is a 83 year old male with a past medical history of atrial fibrillation, hypertension, hyperlipidemia, polymyalgia rheumatica (on chronic steroid therapy), hypothyroidism, chronic kidney disease with a base creatinine of around 1.7 -2.0, CLL, and dementia who was admitted 07/10/2018 for cellulitis of the right lower extremity, acute on chronic kidney disease, and altered mental status. Patient was seen yesterday in the hospital and his was at the bedside. The patient who was sleeping soundly woke up easily and says he is feeling much better. He took about 5 minutes to get himself oriented and then he was talking quite normally and was answering questions appropriately. The leg wound is healing very well no complaints of any fever or chills. His appetite is slowly returning and is eating well according to his . Past Medical History Cardiac Medical History: Reports: Atrial Fibrillation, Hyperlipidemia Pulmonary Medical History: Reports: Sleep Apnea Denies: Asthma, Chronic Obstructive Pulmonary Disease (COPD) EENT Medical History: Reports: Other - Bruises easily Denies: Ears - Hearing aids, Throat - Dysphagia Neurological Medical History: Reports: Other - Chronic demyelinating disorder Denies: Hemorrhagic CVA, Ischemic CVA, Seizures Endocrine Medical History: Reports: Hypothyroidism Denies: Diabetes Mellitus Type 1, Diabetes Mellitus Type 2, Hyperthyroidism Complications of Diabetes: Reports: None Renal/ Medical History: Reports: Chronic Kidney Disease Stage III Denies: Nephrolithiasis Malignancy Medical History: Reports: Leukemia - CLL GI Medical History: Denies: Cirrhosis, Hepatitis Musculoskeltal Medical History: Reports: Arthritis - Rheumatoid arthritis, Other - Polymyalgia rheumatica Denies: Gout Skin Medical History: Denies: Eczema, Psoriasis Psychiatric Medical History: Reports: Dementia - Mild changes with short-term memory and attention deficits Denies: Alcohol Dependency, Depression, Substance Abuse, Tobacco Dependency Traumatic Medical History: Reports: None Infectious Medical History: Reports: None Past Surgical History Past Surgical History: Reports: Appendectomy, Herniorrhaphy - Left inguinal, Orthopedic Surgery - Right ankle reconstruction, multilevel spinal fusion, Vascular Surgery - Varicose vein surgery Social History Lives with: Spouse/Significant other, Other - Rehab facility Smoking Status: Former Smoker Frequency of Alcohol Use: Rare Hx Recreational Drug Use: No Drugs: None Hx Prescription Drug Abuse: No - Advance Directive Resuscitation Status: Full Code Family History Parental Family History Reviewed: No Children Family History Reviewed: No Sibling(s) Family History Reviewed.: No Medication/Allergy Home Medications: Furosemide 20 mg PO DAILY 04/07/17 Levothyroxine Sodium [Synthroid 0.1 mg Tablet] 0.1 mg PO DAILY 04/07/17 Aspirin [Ecotrin] 81 mg PO DAILY 06/03/18 Dofetilide [Tikosyn 125 Mcg Capsule] 125 mcg PO Q12 06/03/18 Esomeprazole Magnesium [Nexium] 20 mg PO QPM 06/03/18 Nebivolol HCl [Bystolic 10 mg Tablet] 5 mg PO Q12 06/03/18 Pramipexole Di-HCl [Mirapex 0.5 mg Tablet] 1 mg PO QHS 06/03/18 Prednisone [Deltasone 10 mg Tablet] 15 mg PO DAILY 06/03/18 Tamsulosin HCl [Flomax 0.4 mg Cap.sr] 0.4 mg PO QPM 06/03/18 Acetaminophen [Tylenol 325 mg Tablet] 650 mg PO Q4HP PRN tablet 07/13/18 Cephalexin Monohydrate [Keflex 500 mg Capsule] 500 mg PO Q12 #14 capsule 9 Docusate Sodium [Colace 100 mg Capsule] 100 mg PO BID #60 capsule 07/13/18 Escitalopram Oxalate [Lexapro 10 mg Tablet] 10 mg PO DAILY #30 tablet 07/13/18 Ferrous Sulfate [Feosol 325 mg Tablet] 325 mg PO DAILY #30 tablet 07/13/18 Multivitamin [Tab-A-Олег (Multiple Vitamin) Tablet] 1 tab PO DAILY #90 tablet 07/13/18 Nystatin/Triamcin [Mycolog-II Ointment 15 gm] 1 applic TP DAILY #1 tube 07/13/18 Oxycodone HCl [Oxy-Ir 5 mg Tablet] 5 mg PO Q4HP PRN #20 tablet 07/13/18 Quetiapine Fumarate [Seroquel 25 mg Tablet] 50 mg PO QHS #60 tablet 07/13/18 Allergies/Adverse Reactions: NSAIDS (Non-Steroidal Anti-Inflamma Adverse Reaction (Intermediate, Verified 01/30/16 23:41) Review of Systems Constitutional: PRESENT: fatigue, weakness. ABSENT: fever(s), headache(s), night sweats, weight loss Nose, Mouth, and Throat: ABSENT: mouth pain, sore throat Cardiovascular: PRESENT: dyspnea on exertion. ABSENT: edema, orthropnea, palpitations Respiratory: PRESENT: dyspnea. ABSENT: cough, hemoptysis Gastrointestinal: ABSENT: abdominal pain, bloating, coffee ground emesis, diarrhea, dysphagia, heartburn, hematemesis Genitourinary: ABSENT: dysuria, hematuria Integumentary: ABSENT: lesions, pruritus, rash Neurological: ABSENT: abnormal speech, confusion, convulsions, focal weakness, frequent falls, lack of coordination Psychiatric: PRESENT: anxiety. ABSENT: hallucinations Hematologic/Lymphatic: ABSENT: easy bleeding, easy bruising, lymphadenopathy Physical Exam Vital Signs: Temp Pulse Resp BP Pulse Ox 97.2 F 70 28 H 119/71 96 07/14/18 19:30 07/14/18 19:30 07/14/18 19:30 07/14/18 19:30 07/14/18 19:30 Intake & Output 07/13/18 07/14/18 07/15/18 06:59 06:59 06:59 Intake Total 2872 1100 595 Output Total 1425 200 240 Balance 1447 900 355 Weight 114.3 kg 117.1 kg General appearance: PRESENT: no acute distress Eye exam: PRESENT: EOMI, PERRLA Ear exam: PRESENT: normal external ear exam Mouth exam: PRESENT: moist, neck supple Neck exam: ABSENT: meningismus, tenderness, thyromegaly, tracheal deviation Respiratory exam: PRESENT: clear to auscultation lo. ABSENT: crackles Cardiovascular exam: PRESENT: +S1, +S2, systolic murmur GI/Abdominal exam: PRESENT: normal bowel sounds, soft. ABSENT: organomegaly, tenderness Extremities exam: PRESENT: +1 edema Neurological exam: PRESENT: alert, awake, oriented to person, oriented to place. ABSENT: oriented to time Skin exam: PRESENT: erythema, mottled - Mottling of his right lower extremity with some venous stasis changes.. ABSENT: rash Results Laboratory Results: 07/14/18 05:46 07/14/18 05:46 07/14/18 07/14/18 05:46 05:46 WBC 5.8 RBC 2.71 L Hgb 8.5 L Hct 25.7 L MCV 95 MCH 31.2 MCHC 32.9 RDW 19.3 H Plt Count 80 L Sodium 144.1 Potassium 4.5 Chloride 109 H Carbon Dioxide 28 Anion Gap 7 BUN 43 H Creatinine 1.83 H Est GFR ( Amer) 43 L Est GFR (Non-Af Amer) 36 L Glucose 92 Calcium 8.2 L 07/11/18 19:00 Leg - Right Cellulitis Gram Stain - Final 07/11/18 19:00 Leg - Right Cellulitis Wound Culture - Final Staphylococcus Aureus Pseudomonas Aeruginosa Klebsiella Pneumoniae Impressions: Chest X-Ray 07/10/18 17:08 IMPRESSION: Borderline heart size with no pulmonary edema. Renal Ultrasound 07/13/18 14:21 IMPRESSION: No evidence for urinary obstruction. Splenomegaly, 17 cm length. Assessment & Plan - Diagnosis (1) Acute kidney injury superimposed on CKD Is this a current diagnosis for this admission?: Yes Plan: Patient is got underlying CKD stage III with a base creatinine around 1.7-2. Admission creatinine on 07/10 was 2.3 and today is down to 1.8 which is his baseline.Apparently this is been present for quite some time according to patient and his . Unsure of the exact etiology at this point. However he has some history of BPH and he was seeing a urologist in the past. Does have some features suggestive of underlying obstructive symptoms at the moment. Reviewed the ultrasound that he has done during this admission which showed unremarkable kidneys but an enlarged spleen. Once he leaves the hospital he need s to be referred to see a urologist.He also has a history of taking 1-2 Aleve and on a weekly basis for aches and pains for quite some time. He denies any history of prolonged and high usage of any NSAIDs in the past. (2) CKD (chronic kidney disease), stage III Plan: Apparently has had chronic CKD stage III according to the patient and his . Unsure of exact etiology. Renal ultrasound done during this admission does not show any obstructive changes. However he need to follow-up with urology for further evaluation of obstructive symptoms.Advised the patient that it is okay to take the Aleve 1 to 2 tablets on a weekly basis and no more. (3) Altered mental status Qualifiers: Altered mental status type: unspecified Qualified Code(s): R41.82 - Altered mental status, unspecified Is this a current diagnosis for this admission?: Yes Plan: Acute encephalopathy from his sepsis which is now apparently much better according to his . (4) Anemia with chronic illness Is this a current diagnosis for this admission?: Yes Plan: He was transfused during this admission when his initial hemoglobin on presentation was 6+. Did not see any iron studies or work-up will order those and later on consider usage of erythropoietin in the face of his CKD. (5) Cellulitis of right lower extremity Is this a current diagnosis for this admission?: Yes Plan: Much better on current treatments. (6) Chronic venous insufficiency Is this a current diagnosis for this admission?: Yes Plan: Status quo. Needs physical measures to help relieve problems and prevent further complications down the road. (7) Dementia Is this a current diagnosis for this admission?: Yes Plan: Status quo. (8) Anemia Qualifiers: Anemia type: other cause Other causes of anemia: acute posthemorrhagic Qualified Code(s): D62 - Acute posthemorrhagic anemia Is this a current diagnosis for this admission?: Yes Plan: Initiate work-up.I note that Dr. Light has seen and plan to follow him up as an outpatient anyway. (9) Atrial fibrillation Qualifiers: Atrial fibrillation type: persistent Qualified Code(s): I48.1 - Persistent atrial fibrillation Is this a current diagnosis for this admission?: Yes Plan: Controlled. (10) BPH (benign prostatic hyperplasia) Plan: Plan for outpatient referral to urology. (11) CLL (chronic lymphocytic leukemia) Is this a current diagnosis for this admission?: Yes Plan: Stable.White count of 5.8. (12) Polymyalgia rheumatica Is this a current diagnosis for this admission?: Yes Plan: On chronic steroids. Apparently this still gives him intermittent exacerbations.
--- NOTE | 2018-07-15 21:02 | PDOC DISCHARGE SUMMARY ---
General - Admit/Disc Date/PCP Admission Date/Primary Care Provider: 07/10/18 20:03 ISMAEL HARRIS MD Discharge Date: 07/14/18 - Discharge Diagnosis (1) Acute kidney injury superimposed on CKD Is this a current diagnosis for this admission?: Yes Summary: Resolved; creatinine has returned to baseline of 1.84. Renal ultrasound was benign; no evidence of urinary obstruction or hydro nephrosis. Incidental finding of splenomegaly; likely r/t CLL. The patient was admitted to [facility] with continuous cardiac telemetry. Medications were reviewed and nephrotoxic medications discontinued as able. He was provided gentle IV fluids. Nephrology was consulted; cleared for discharge with outpatient follow up and urology consultation. (2) Anemia with chronic illness Is this a current diagnosis for this admission?: Yes Summary: Admitted with a hemoglobin of 7.9; stable at 8.4 today. Multifactorial secondary to CLL, CKD, and poor nutrition. He has received 2 units PRBC. Recommend continued daily multivitamin and ferrous sulfate supplementation. Outpatient nephrology and hematology/oncology follow up. (3) Cellulitis of right leg without foot Is this a current diagnosis for this admission?: Yes Summary: Patient remains afebrile with normal WBC and is clinical improved. Blood cultures are negative at 4 days. Wound culture (superficial) demonstrated staph aureus, Klebsiella, and pseudomonas Patient was empirically placed on meropenem; discontinued on day #3. Patient was transitioned to p.o. Keflex to complete course of antibiotics post d ischarge (Bactrim interacts with patient's Tikosyn, Levaquin avoided secondary to tendon rupture risk in elderly patients) Surgery and Vascular surgery was consulted for round care recommendations. Patient is discharged with home health services; to continue daily dressing changes using Santyl. Patient to follow up with Dr. Ángel Horne on 07/22/18. (4) Atrial fibrillation Is this a current diagnosis for this admission?: Yes Summary: Patient has history of chronic atrial fibrillation. Rate controlled on home dose Tikosyn and Bystolic Not on anticoagulation at home; high risk secondary to age, dementia, history of falls. (5) CLL (chronic lymphocytic leukemia) Is this a current diagnosis for this admission?: Yes Summary: Patient has a history of CLL. Heme/Onc consultation; appreciate Dr. Light's evaluation recommendations. Patient to follow up with Dr. Light in 2-3 weeks. (6) Polymyalgia rheumatica Is this a current diagnosis for this admission?: Yes Summary: Continue home dose prednisone. Oxycodone as needed for severe pain. (7) Dementia Is this a current diagnosis for this admission?: Yes Summary: Patient with early dementia; orientated x4 at baseline but with periods of increased confusion when sleep deprived or acutely ill. This admission the patient was confused, impulsive, and agitated overnights. He initially required a 1:1 sitter and as needed Valium for safety. Continue home dose Seroquel nightly. Continue home dose of Lexapro. Discussed with patient's ; to discharge to home with 24 hours supervision provided by family and private pay sitter. Have arranged for patient to receive home health nursing, PT/OT, and aide. - Additional Information Resuscitation Status: Full Code Discharge Diet: Cardiac, Diabetic Discharge Activity: Activity As Tolerated, Balance Activity w/Rest, Slowly Increase Activity, Supervised Activity Prescriptions: Cephalexin Monohydrate [Keflex 500 mg Capsule] 500 mg PO Q12 #14 capsule Docusate Sodium [Colace 100 mg Capsule] 100 mg PO BID #60 capsule Escitalopram Oxalate [Lexapro 10 mg Tablet] 10 mg PO DAILY #30 tablet Ferrous Sulfate [Feosol 325 mg Tablet] 325 mg PO DAILY #30 tablet Multivitamin [Tab-A-Олег (Multiple Vitamin) Tablet] 1 tab PO DAILY #90 tablet Nystatin/Triamcin [Mycolog-II Ointment 15 gm] 1 applic TP DAILY #1 tube Oxycodone HCl [Oxy-Ir 5 mg Tablet] 5 mg PO Q4HP PRN #20 tablet PRN Reason: For Pain Quetiapine Fumarate [Seroquel 25 mg Tablet] 50 mg PO QHS #60 tablet Home Medications: Furosemide 20 mg PO DAILY 04/07/17 Levothyroxine Sodium [Synthroid 0.1 mg Tablet] 0.1 mg PO DAILY 04/07/17 Aspirin [Ecotrin] 81 mg PO DAILY 06/03/18 Dofetilide [Tikosyn 125 Mcg Capsule] 125 mcg PO Q12 06/03/18 Esomeprazole Magnesium [Nexium] 20 mg PO QPM 06/03/18 Nebivolol HCl [Bystolic 10 mg Tablet] 5 mg PO Q12 06/03/18 Pramipexole Di-HCl [Mirapex 0.5 mg Tablet] 1 mg PO QHS 06/03/18 Prednisone [Deltasone 10 mg Tablet] 15 mg PO DAILY 06/03/18 Tamsulosin HCl [Flomax 0.4 mg Cap.sr] 0.4 mg PO QPM 06/03/18 Acetaminophen [Tylenol 325 mg Tablet] 650 mg PO Q4HP PRN tablet 07/13/18 Cephalexin Monohydrate [Keflex 500 mg Capsule] 500 mg PO Q12 #14 capsule 07/13/18 Docusate Sodium [Colace 100 mg Capsule] 100 mg PO BID #60 capsule 07/13/18 Escitalopram Oxalate [Lexapro 10 mg Tablet] 10 mg PO DAILY #30 tablet 07/13/18 Ferrous Sulfate [Feosol 325 mg Tablet] 325 mg PO DAILY #30 tablet 07/13/18 Multivitamin [Tab-A-Олег (Multiple Vitamin) Tablet] 1 tab PO DAILY #90 tablet 07/13/18 Nystatin/Triamcin [Mycolog-II Ointment 15 gm] 1 applic TP DAILY #1 tube 07/13/18 Oxycodone HCl [Oxy-Ir 5 mg Tablet] 5 mg PO Q4HP PRN #20 tablet 07/13/18 Quetiapine Fumarate [Seroquel 25 mg Tablet] 50 mg PO QHS #60 tablet 07/13/18 History of Present Illness History of Present Illness: Per H&P by Dr. Bailey: ROSAURA LYONS is a 83 year old male who presented to the emergency room with an acute history of altered mental status. His daughter related that he developed acute confusion this morning that has persisted throughout the remainder of the day and is still present. He was sent to the emergency room for evaluation by his wound care physician who was concerned that he may have developing sepsis due to his right lower leg wound cellulitis. He has right leg has a poorly healing wound from an injury 6 weeks ago that was cultured 1 week ago with a polymicrobial growth of staph aureus, Klebsiella pneumonia, Enterobacter cloacae and Acinetobacter Baumannii. He was noted to have developed lymphangitis by the wound care clinic physician. His daughter has not identified any aggravating or ameliorating factors for his acute confusion. Patient has acute dementia and is unable to contribute to his medical record or care. In the emergency room he was found to be acutely confused and his right lower extremity showed significant evidence of cellulitis with ascending lymphangitis. Patient was subsequently admitted to hospital for further evaluation and treatment. Physical Exam Vital Signs: Temp Pulse Resp BP Pulse Ox 97.2 F 70 28 H 119/71 96 07/14/18 19:30 07/14/18 19:30 07/14/18 19:30 07/14/18 19:30 07/14/18 19:30 Intake & Output 07/14/18 07/15/18 07/16/18 06:59 06:59 06:59 Intake Total 1100 595 Output Total 200 240 Balance 900 355 Weight 117.1 kg General appearance: PRESENT: no acute distress, cooperative, hard of hearing, obese, well-developed, well-nourished Head exam: PRESENT: atraumatic, normocephalic Eye exam: PRESENT: conjunctiva pink, EOMI, PERRLA. ABSENT: scleral icterus Ear exam: PRESENT: normal external ear exam Mouth exam: PRESENT: moist, tongue midline Neck exam: ABSENT: carotid bruit, JVD, lymphadenopathy, thyromegaly Respiratory exam: PRESENT: clear to auscultation lo, symmetrical, unlabored. ABSENT: rales, rhonchi, wheezes Cardiovascular exam: PRESENT: RRR, +S1, +S2, systolic murmur. ABSENT: diastolic murmur, rubs Vascular exam: PRESENT: normal capillary refill GI/Abdominal exam: PRESENT: normal bowel sounds, soft. ABSENT: distended, guarding, mass, organolmegaly, rebound, tenderness Rectal exam: PRESENT: deferred Extremities exam: PRESENT: full ROM, +2 edema - BLE; R>L. ABSENT: calf tenderness, clubbing, pedal edema Neurological exam: PRESENT: alert, awake, oriented to person, oriented to place, oriented to time, oriented to situation, CN II-XII grossly intact. ABSENT: motor sensory deficit Psychiatric exam: PRESENT: appropriate affect, normal mood. ABSENT: homicidal ideation, suicidal ideation Skin exam: PRESENT: dry, warm, other - Chronic venous stasis changes BLE. Anterior wound to right lower extremity with granulation tissue; no surrounding erythema, edema, or drainage. ABSENT: cyanosis, rash Results Laboratory Results: 07/14/18 05:46 07/14/18 05:46 07/10/18 18:14 Blood Blood Culture - Final NO GROWTH IN 5 DAYS Impressions: Chest X-Ray 07/10/18 17:08 IMPRESSION: Borderline heart size with no pulmonary edema. Renal Ultrasound 07/13/18 14:21 IMPRESSION: No evidence for urinary obstruction. Splenomegaly, 17 cm length. Qualifiers - * PATIENT BEING DISCHARGED WITH ANY OF THE FOLLOWING DIAGNOSIS: No Acute Heart Failure Is this a Heart Failure Patient?: No Plan Discharge Plan: Discharged to home with home health services. Follow up with primary care provider within 1 week. Follow up with Dr. Clark within 2-4 weeks. Follow up with Dr. Ángel Horne as scheduled. Follow up with Heme/Onc in 2-3 weeks. Outpatient consultation with Urology. Complete course of Keflex. Change dressing daily; remove old dressing, wash with soapy water, apply Santyl to wound bed and cover with dry gauze. Wear JENNIFER hose or compression stockings. Keep legs elevated as able. Return to the emergency department as needed for concerning symptoms. Time Spent: Greater than 30 Minutes
[2018-07-17 12:37] LABS: A/G RATIO. 1.4 (0.7-1.7); ALBUMIN 3 2.6 g/dL (2.9-4.4); ALPHA-1-GLOBULIN 0.4 g/dL (0.0-0.4); BETA GLOBULIN 0.6 g/dL (0.7-1.3); GAMMA GLOBULINS 0.3 g/dL (0.4-1.8); IMMUNOGLOBULIN A 57 mg/dL (61-437); IMMUNOGLOBULIN G 425 mg/dL (700-1600); IMMUNOGLOBULIN M 27 mg/dL (15-143); MONOCLONAL-SPIKE Not Observed g/dL (Not Observ); PROTEIN TOTAL SERUM 4.6 g/dL (6.0-8.5)
== END 2018-07-14 20:10 | disposition home health service (06) | DRG 603 ==
LOC: ER 16:22 → EH 20:03 → 5 21:22 → 3S 07-11 14:40
PROVIDERS: ADMIT Emergency Medicine; ATTEND Emergency Medicine
PROC: 30233N1 Transfusion of Nonautologous Red Blood Cells into Peripheral Vein, Percutaneous Approach (ICD-10-PCS; principal; 2018-07-11)
DX: L03.115 Cellulitis of right lower limb (principal); G37.9 Demyelinating disease of central nervous system, unspecified; N17.9 Acute kidney failure, unspecified; I48.1 Persistent atrial fibrillation; C91.10 Chronic lymphocytic leukemia of B-cell type not having achieved remission; I88.9 Nonspecific lymphadenitis, unspecified; E78.5 Hyperlipidemia, unspecified; N18.9 Chronic kidney disease, unspecified; D63.1 Anemia in chronic kidney disease; D69.6 Thrombocytopenia, unspecified; I12.9 Hypertensive chronic kidney disease with stage 1 through stage 4 chronic kidney disease, or unspecified chronic kidney disease; S81.811S Laceration without foreign body, right lower leg, sequela; W45.8XXS Other foreign body or object entering through skin, sequela; E03.9 Hypothyroidism, unspecified; G47.30 Sleep apnea, unspecified; M35.3 Polymyalgia rheumatica; I87.2 Venous insufficiency (chronic) (peripheral); F03.90 Unspecified dementia, unspecified severity, without behavioral disturbance, psychotic disturbance, mood disturbance, and anxiety; I87.8 Other specified disorders of veins; B95.61 Methicillin susceptible Staphylococcus aureus infection as the cause of diseases classified elsewhere; R16.1 Splenomegaly, not elsewhere classified; B96.1 Klebsiella pneumoniae [K. pneumoniae] as the cause of diseases classified elsewhere; Z79.899 Other long term (current) drug therapy; Z87.891 Personal history of nicotine dependence; Z88.8 Allergy status to other drugs, medicaments and biological substances; Z79.52 Long term (current) use of systemic steroids; Z79.82 Long term (current) use of aspirin
CPT/HCPCS: 36415; 36430; 71045; 76770; 80048; 80053; 80061; 81001; 82803; 83605; 83735; 84439; 84443; 84481; 85025; 85027; 85610; 86320; 86850; 86870; 86900; 86901; 86920; 86922; 87040; 87070; 87077; 87086; 87186; 87205; 93005; 93010; 96365; 99285; J0696; J1170; J2060; J2185; J2270; J3360; J3490; J7050; J7120; J7512; P9016

== ENCOUNTER → 2018-09-01 | Outpatient (CLI) | payer MEDICARE, BC ==
[2018-09-01 12:51] LABS: HEMOGLOBIN 10.1 g/dL (13.5-17.0); MEAN CORPUSCULAR HEMOGLOBIN 32.8 pg (27.0-33.4); MEAN CORPUSCULAR HGB CONC 33.6 g/dL (32.0-36.0); MEAN CORPUSCULAR VOLUME 98 fl (80-97); RED BLOOD COUNT 3.07 10^6/uL (4.35-5.55); RED CELL DISTRIBUTION WIDTH 18.3 % (11.5-14.0)
[2018-09-01 13:12] LABS: ANION GAP 7 (5-19); BLOOD UREA NITROGEN 56 mg/dL (7-20); CALCIUM 8.7 mg/dL (8.4-10.2); CARBON DIOXIDE 30 mmol/L (22-30); CHLORIDE 104 mmol/L (98-107); GLUCOSE 107 mg/dL (75-110); PHOSPHORUS 4.5 mg/dL (2.5-4.5); SODIUM 141.3 mmol/L (137-145)
[2018-09-01 13:25] LABS: PLATELET COUNT 70 10^3/uL (150-450)
[2018-09-01 13:40] LABS: APPEARANCE,URINE CLEAR; BILIRUBIN,URINE NEGATIVE (NEGATIVE); COLOR,URINE STRAW; GLUCOSE, URINE NEGATIVE (NEGATIVE); KETONES,URINE NEGATIVE (NEGATIVE); LEUKOCYTE ESTERASE,URINE NEGATIVE (NEGATIVE); NITRITE,URINE NEGATIVE (NEGATIVE); PROTEIN,URINE NEGATIVE (NEGATIVE); UROBILINOGEN,URINE NEGATIVE mg/dL (<2.0)
== END ==
LOC: OD 12:21
PROVIDERS: ATTEND Physician Assistant Medical
DX: I12.9 Hypertensive chronic kidney disease with stage 1 through stage 4 chronic kidney disease, or unspecified chronic kidney disease (principal); N18.3 Chronic kidney disease, stage 3 (moderate); D63.1 Anemia in chronic kidney disease; R60.9 Edema, unspecified
CPT/HCPCS: 36415; 80048; 81001; 83970; 84100; 85027

== ENCOUNTER 2018-11-14 00:34 | Inpatient (IN) | payer MEDICARE, BC ==
[2018-11-14] MEDS ORDERED: MORPHINE SULFATE 10 MG/ML INJ IV ONE (01:05)
[2018-11-14] MEDS ORDERED: ONDANSETRON HCL INJ/PF 4 MG/2 ML SDV IV ONE (01:05)
--- NOTE | 2018-11-14 01:08 | ER Document Report ---
ED Extremity Problem, Lower - General Stated Complaint: LEG PAIN Time Seen by Provider: 11/14/18 00:47 Notes: Patient is an 83-year-old male that comes to the emergency department for chief complaint of swelling and pain to both of his legs but worse on the right, sanjuana orozco has a history of a wound that was very severe over the right anterior mid leg in May and he has been following with the surgeon in the wound clinic ever since, he is also had multiple episodes of cellulitis and had sepsis from this once. Patient started having chills earlier today and now his pain in his leg is much worse to the point that he can no longer walk per . Patient has not been confused. He is not a diabetic. 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 Patient denies any other complaints. TRAVEL OUTSIDE OF THE [place] IN LAST 30 DAYS: No - Related Data Allergies/Adverse Reactions: NSAIDS (Non-Steroidal Anti-Inflamma Adverse Reaction (Intermediate, Verified 01/30/16 23:41) Past Medical History - General Information source: Patient, Relative - Social History Smoking Status: Never Smoker Drug Abuse: None Lives with: Family Family History: CAD, Other - Alzheimer's dementia - Past Medical History Cardiac Medical History: Reports: Hx Atrial Fibrillation, Hx Hypercholesterolemia, Hx Hypertension Pulmonary Medical History: Reports: Hx Sleep Apnea Denies: Hx Asthma, Hx COPD Neurological Medical History: Denies: Hx Seizures Endocrine Medical History: Reports: Hx Hypothyroidism. Denies: Hx Diabetes Mellitus Type 1, Hx Diabetes Mellitus Type 2, Hx Hyperthyroidism Renal/ Medical History: Denies: Hx Peritoneal Dialysis Malignancy Medical History: 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 GI Medical History: Denies: Hx Cirrhosis, Hx Hepatitis Musculoskeletal Medical History: Reports Hx Arthritis - Rheumatoid arthritis, Denies Hx Gout Skin Medical History: Denies Hx Eczema, Denies Hx Psoriasis Psychiatric Medical History: Reports: Hx Dementia - Mild changes with short-term memory and attention deficits Denies: Hx Depression Infectious Medical History: Denies: Hx Hepatitis Past Surgical History: Reports: Hx Abdominal Surgery - hernia repair, Hx Appendectomy, Hx Cardiac Surgery - pacemaker, Hx Herniorrhaphy - Left inguinal, Hx Orthopedic Surgery - Right ankle reconstruction, multilevel spinal fusion, Hx Vascular Surgery - Varicose vein surgery Review of Systems - Review of Systems Constitutional: No symptoms reported EENT: No symptoms reported Cardiovascular: No symptoms reported Respiratory: No symptoms reported Gastrointestinal: No symptoms reported Genitourinary: No symptoms reported Male Genitourinary: No symptoms reported Musculoskeletal: See HPI Skin: See HPI Hematologic/Lymphatic: No symptoms reported Neurological/Psychological: No symptoms reported Physical Exam - Vital signs Vitals: Temp Pulse Resp BP Pulse Ox 99.4 F 82 19 120/68 96 11/14/18 00:35 11/14/18 00:35 11/14/18 00:35 11/14/18 00:11/14/18 00:35 - Notes Notes: GENERAL: Alert, interactive. No severe distress. HEAD: Normocephalic, atraumatic. EYES: Pupils equal, round, and reactive to light. Extraocular movements intact. ENT: Oral mucosa moist, tongue midline. Oropharynx unremarkable. Airway patent. LUNGS: Clear to auscultation bilaterally, no wheezes, rales, or rhonchi. No respiratory distress. HEART: Regular rate and rhythm. 1/6 systolic murmur heard throughout. ABDOMEN: Soft, non-tender. Non-distended. EXTREMITIES: Bilateral lower extremity edema with standing from chronic renal insufficiency. In addition to this there is a healing wound in the mid right anterior tibia with tenderness and erythema extending up towards the knee and up towards the medial thigh area. No induration or fluctuance, distal pulses and sensation are intact bilaterally. BACK: no cervical, thoracic, lumbar midline tenderness. No saddle anesthesia, normal distal neurovascular exam. Moves all extremities in full range of motion. NEUROLOGICAL: Alert and oriented x3. Normal speech. Cranial nerves II through XII grossly intact. PSYCH: Normal affect, normal mood. SKIN: Warm, dry, normal turgor. No rashes or lesions noted. Course - Re-evaluation Re-evalutation: is at bedside. She states that the last time patient developed cellulitis like this he quickly became septic and unstable. Patient does have cellulitis extending up his right leg up past his knee and into his thigh. He also has fairly severe bilateral lower extremity venous insufficiency with staining. CBC nonspecific with thrombus cytopenia, very nonspecific given patient's history of CLL. Chemistry nonspecific either also with chronic kidney disease. Lactic acid is not elevated. Cultures pending. Patient is not febrile, tachycardic, or hypotensive. Previous culture shows sensitivity to ceftriaxone with all of the who bacteria therefore he was given this along with vancomycin. He is not a diabetic. Because of patient's age, history of severe cellulitis, the extent of the cellulitis, and patient's pain with a cellulitis causing him to be unable to walk like usual I discussed with patient, , and I will discuss with hospitalist for admission. Discussed with Dr. Bailey, patient accepted to medical floor full admission. - Vital Signs Vital signs: Temp Pulse Resp BP Pulse Ox 99 F 64 18 130/52 H 96 11/14/18 05:51 11/14/18 05:51 11/14/18 05:51 11/14/18 05:51 11/14/18 05:00 - Laboratory Result Diagrams: 11/14/18 02:10 11/14/18 02:10 Laboratory results interpreted by me: 11/14/18 11/14/18 11/14/18 02:10 02:10 02:10 RBC 3.00 L Hgb 9.9 L Hct 29.6 L MCV 99 H RDW 16.3 H Plt Count 72 L Lymph % (Auto) 9.8 L Seg Neutrophils % 84.6 H Sodium 136.7 L BUN 65 H Creatinine 1.90 H Est GFR ( Amer) 41 L Est GFR (MDRD) Non-Af 34 L TSH 5.34 H Free T3 pg/mL 2.38 L Discharge - Discharge Clinical Impression: Cellulitis Qualifiers: Site of cellulitis: extremity Site of cellulitis of extremity: lower extremity Laterality: right Qualified Code(s): L03.115 - Cellulitis of right lower limb Condition: Stable Disposition: ADMITTED INPATIENT Admitting Provider: Lynn (Hospitalist) Unit Admitted: Medical Floor
[2018-11-14 02:27] LABS: ABSOLUTE LYMPHOCYTES (AUTO) 0.6 10^3/uL (0.5-4.7); ABSOLUTE MONOCYTES (AUTO) 0.3 10^3/uL (0.1-1.4); ABSOLUTE NEUT (AUTO) 4.8 10^3/uL (1.7-8.2); BASOPHILS % (AUTO) 0.3 % (0-2); EOSINOPHILS % (AUTO) 0.8 % (0-6); HEMATOCRIT 29.6 % (37.9-51.0); HEMOGLOBIN 9.9 g/dL (13.5-17.0); LYMPHOCYTES % (AUTO) 9.8 % (13-45); MEAN CORPUSCULAR HGB CONC 33.4 g/dL (32.0-36.0); MEAN CORPUSCULAR VOLUME 99 fl (80-97); MONOCYTES % (AUTO) 4.5 % (3-13); RED CELL DISTRIBUTION WIDTH 16.3 % (11.5-14.0); SEGMENTED NEUTROPHILS % (AUTO) 84.6 % (42-78); TOTAL CELLS COUNTED % (AUTO) 100 %; WHITE BLOOD COUNT 5.6 10^3/uL (4.0-10.5)
[2018-11-14 02:44] LABS: ANION GAP 8 (5-19); BLOOD UREA NITROGEN 65 mg/dL (7-20); CALCIUM 9.1 mg/dL (8.4-10.2); CARBON DIOXIDE 28 mmol/L (22-30); CHLORIDE 101 mmol/L (98-107); GLUCOSE 106 mg/dL (75-110); POTASSIUM 4.1 mmol/L (3.6-5.0)
[2018-11-14 02:45] LABS: PLATELET COUNT 72 10^3/uL (150-450)
[2018-11-14] MEDS ORDERED: CEFTRIAXONE INJ 1000 MG VIAL IV ONE (03:07)
[2018-11-14] MEDS ORDERED: VANCOMYCIN HCL INJ 1000 MG VIAL IV ONE (03:08)
[2018-11-14] MEDS ORDERED: MAG HYDROX/AL HYDROX/SIMETH SUSP 30 ML UDCUP PO PRN (05:28)
[2018-11-14] MEDS ORDERED: ONDANSETRON HCL INJ/PF 4 MG/2 ML SDV IV PRN (05:28)
[2018-11-14] MEDS ORDERED: ONDANSETRON 4 MG TAB.RAPDIS PO PRN (05:28)
[2018-11-14] MEDS ORDERED: MAGNESIUM HYDROXIDE SUSP 30 ML UDCUP PO PRN (05:28)
[2018-11-14] MEDS ORDERED: TEMAZEPAM 7.5 MG CAPSULE PO PRN (05:28)
[2018-11-14] MEDS ORDERED: HYDRALAZINE HCL INJ/PF 20 MG/1 ML SDV IV PRN (05:36)
[2018-11-14] MEDS ORDERED: NALBUPHINE HCL INJ 10 MG/1 ML AMPULE IV PRN ×2 (05:36→05:54)
[2018-11-14] MEDS ORDERED: ACETAMINOPHEN 325 MG TABLET PO PRN (05:36)
[2018-11-14] MEDS ORDERED: VANCOMYCIN HCL INJ 500 MG VIAL IV SCH (05:45)
[2018-11-14] MEDS ORDERED: ERTAPENEM SODIUM INJ 1 GM VIAL IV PRN (05:45)
[2018-11-14] MEDS: HEPARIN SOD (PORCINE) 5,000 UNIT/ML 1 ML VIAL SUBCUT SCH ×3 (05:55→21:54)
--- NOTE | 2018-11-14 05:59 | PDOC H&P ---
History of Present Illness Admission Date/PCP: 11/14/18 04:41 ISMAEL HARRIS MD Patient complains of: Right leg swelling History of Present Illness: ROSAURA LYONS JR is a 83 year old male who presented with his to the emergency room with a 1 day history of right leg swelling. Patient and his relate that he began having chills earlier on the day of 11/13/2018 and progressively had worsening pain in his right leg to the point where it became so severe that he could no longer walk on his right leg last evening causing them to come to the emergency room. Right lower leg pain is described as a constant severe deep aching pain without radiation worsened by weightbearing. The right lower leg is affected by a chronic recurrent cellulitis and he admits numerous previous similar episodes, several with lymphangitis and one associated with sepsis related to infections that began in his right lower leg. He has been followed by the wound clinic for the last 6 months and feels like he is making significant progress and improvement. He denies identification of any additional aggravating or ameliorating factors for his right leg swelling and pain. In the emergency room he was found to have a normal white blood count and he was afebrile, however his right lower extremity showed significant erythema and edema with tenderness to palpation and he was unable to bear weight on the leg. Patient was subsequently admitted to the hospital for further evaluation and treatment. Past Medical History Cardiac Medical History: Reports: Atrial Fibrillation, Hyperlipidema, Hypertension Pulmonary Medical History: Reports: Sleep Apnea Denies: Asthma, Chronic Obstructive Pulmonary Disease (COPD) EENT Medical History: Denies: Cataracts, Ears - Hearing aids Neurological Medical History: Denies: Hemorrhagic CVA, Ischemic CVA, Seizures Endocrine Medical History: Reports: Hypothyroidism Denies: Diabetes Mellitus Type 1, Diabetes Mellitus Type 2, Hyperthyroidism Renal/ Medical History: Reports: Chronic Kidney Disease, Other - Benign prostatic hypertrophy Denies: Nephrolithiasis Malignancy Medical History: Reports: Leukemia - Chronic lymphocytic leukemia GI Medical History: Denies: Cirrhosis, Crohn's Disease, Diverticulitis, Gastroesophageal Reflux Disease, Hepatitis, Peptic Ulcer Disease, Ulcerative Colitis Musculoskeltal Medical History: Reports: Arthritis - Rheumatoid arthritis Denies: Gout Skin Medical History: Denies: Eczema, Psoriasis Psychiatric Medical History: Reports: Dementia - Mild to moderate changes with short-term memory and attention deficits Denies: Alcohol Dependency, Substance Abuse, Tobacco Dependency Traumatic Medical History: Reports: None Hematology: Reports: Anemia Denies: Bleeding Tendencies Infectious Medical History: Reports: None Past Surgical History Past Surgical History: Reports: Appendectomy, Herniorrhaphy - Left inguinal, Orthopedic Surgery - Right ankle reconstruction, multilevel spinal fusion, Vascular Surgery - Varicose vein surgery Social History Information Source: Patient Lives with: Spouse/Significant other Smoking Status: Former Smoker Frequency of Alcohol Use: Rare Hx Recreational Drug Use: No Drugs: None Hx Prescription Drug Abuse: No - Advance Directive Resuscitation Status: Full Code Surrogate healthcare decision maker:: Wanda Lyons Family History Family History: CAD, Other - Alzheimer's dementia. denies: DM, Hypertension, Malignancy Parental Family History Reviewed: Yes Children Family History Reviewed: No Sibling(s) Family History Reviewed.: Yes Medication/Allergy Home Medications: Furosemide 20 mg PO DAILY 04/07/17 Levothyroxine Sodium [Synthroid 0.1 mg Tablet] 0.1 mg PO DAILY 04/07/17 Aspirin [Ecotrin] 81 mg PO DAILY 06/03/18 Dofetilide [Tikosyn 125 Mcg Capsule] 125 mcg PO Q12 06/03/18 Esomeprazole Magnesium [Nexium] 20 mg PO QPM 06/03/18 Nebivolol HCl [Bystolic 10 mg Tablet] 5 mg PO Q12 06/03/18 Pramipexole Di-HCl [Mirapex 0.5 mg Tablet] 1 mg PO QHS 06/03/18 Prednisone [Deltasone 10 mg Tablet] 15 mg PO DAILY 06/03/18 Tamsulosin HCl [Flomax 0.4 mg Cap.sr] 0.4 mg PO QPM 06/03/18 Acetaminophen [Tylenol 325 mg Tablet] 650 mg PO Q4HP PRN tablet 07/13/18 Cephalexin Monohydrate [Keflex 500 mg Capsule] 500 mg PO Q12 #14 capsule 07/13/18 Docusate Sodium [Colace 100 mg Capsule] 100 mg PO BID #60 capsule 07/13/18 Escitalopram Oxalate [Lexapro 10 mg Tablet] 10 mg PO DAILY #30 tablet 07/13/18 Ferrous Sulfate [Feosol 325 mg Tablet] 325 mg PO DAILY #30 tablet 07/13/18 Multivitamin [Tab-A-Олег (Multiple Vitamin) Tablet] 1 tab PO DAILY #90 tablet 07/13/18 Nystatin/Triamcin [Mycolog-II Ointment 15 gm] 1 applic TP DAILY #1 tube 07/13/18 Oxycodone HCl [Oxy-Ir 5 mg Tablet] 5 mg PO Q4HP PRN #20 tablet 07/13/18 Quetiapine Fumarate [Seroquel 25 mg Tablet] 50 mg PO QHS #60 tablet 07/13/18 Allergies/Adverse Reactions: NSAIDS (Non-Steroidal Anti-Inflamma Adverse Reaction (Intermediate, Verified 01/30/16 23:41) Review of Systems Constitutional: PRESENT: as per HPI, chills. ABSENT: fever(s) Eyes: ABSENT: visual disturbances, other - Eye pain Ears: ABSENT: hearing changes, other - Ear pain Nose, Mouth, and Throat: ABSENT: mouth pain, sore throat Cardiovascular: ABSENT: chest pain, palpitations Respiratory: ABSENT: cough, dyspnea Gastrointestinal: ABSENT: abdominal pain, constipation, diarrhea, nausea, vomiting Genitourinary: ABSENT: dysuria, hematuria Musculoskeletal: PRESENT: as per HPI, other - Right lower extremity pain. ABSENT: back pain, joint swelling, muscle weakness Integumentary: ABSENT: pruritus, rash Neurological: PRESENT: confusion - Occasional mild confusion, memory loss - Mild chronic short-term memory loss. ABSENT: convulsions, focal weakness, syncope Psychiatric: ABSENT: anxiety, depression Endocrine: ABSENT: cold intolerance, heat intolerance Hematologic/Lymphatic: ABSENT: easy bleeding, easy bruising Allergic/Immunologic: ABSENT: seasonal rhinorrhea Physical Exam Vital Signs: Temp Pulse Resp BP Pulse Ox 99.4 F 82 22 H 106/51 L 95 11/14/18 00:35 11/14/18 00:35 11/14/18 04:01 11/14/18 04:00 11/14/18 04:01 Intake & Output 11/12/18 11/13/18 11/14/18 23:59 23:59 23:59 Weight 105.4 kg General appearance: PRESENT: no acute distress, cooperative Head exam: PRESENT: atraumatic, normocephalic Eye exam: PRESENT: conjunctiva pink. ABSENT: conjunctival injection, scleral icterus Ear exam: PRESENT: normal external ear exam. ABSENT: bleeding, drainage Mouth exam: PRESENT: dry mucosa, neck supple Neck exam: ABSENT: thyromegaly, tracheal deviation Respiratory exam: PRESENT: clear to auscultation lo, symmetrical, unlabored Cardiovascular exam: PRESENT: RRR. ABSENT: clicks, gallop, rubs Pulses: PRESENT: normal radial pulses, normal dorsalis pedis pul Vascular exam: PRESENT: normal capillary refill. ABSENT: pallor GI/Abdominal exam: PRESENT: normal bowel sounds, soft Rectal exam: PRESENT: deferred Extremities exam: PRESENT: pedal edema - Bilateral, tenderness - Right lower extremity to palpation, +1 edema - Left lower extremity associated with mild erythema and no increased warmth to touch, +2 edema - Right lower extremity associated with erythema, increased warmth to touch and local tenderness. Musculoskeletal exam: ABSENT: deformity, dislocation Neurological exam: PRESENT: alert, oriented to person, oriented to place, CN II- XII grossly intact. ABSENT: oriented to time, oriented to situation, motor sensory deficit Psychiatric exam: PRESENT: appropriate affect, normal mood Skin exam: PRESENT: dry, erythema - Erythema and edema with local tenderness noted in the right lower extremity as described above, intact, warm. ABSENT: jaundice, rash, urticaria Results Laboratory Results: 11/14/18 02:10 11/14/18 02:10 11/14/18 11/14/18 11/14/18 02:10 02:10 02:10 WBC 5.6 RBC 3.00 L Hgb 9.9 L Hct 29.6 L MCV 99 H MCH 33.0 MCHC 33.4 RDW 16.3 H Plt Count 72 L Seg Neutrophils % 84.6 H Sodium 136.7 L Potassium 4.1 Chloride 101 Carbon Dioxide 28 Anion Gap 8 BUN 65 H Creatinine 1.90 H Est GFR ( Amer) 41 L Glucose 106 Lactic Acid 0.8 Calcium 9.1 Assessment and Plan - Diagnosis (1) Cellulitis of right lower extremity Is this a current diagnosis for this admission?: Yes Plan: Patient be treated with IV antibiotics including vancomycin and ertapenem. Blood and wound cultures are pending. Lactic acid x3 will be obtained. A daily CBC metabolic profile and magnesium level will be obtained. Physical therapy and Occupational Therapy will be consulted. Patient will use Nubain 5 to 10 mg IV every 3 hours on a as needed basis for pain using a sliding scale. (2) CKD (chronic kidney disease), stage III Is this a current diagnosis for this admission?: Yes Plan: Patient's chronic kidney disease will be considered in all dosage calculations for his therapy. Serial metabolic profiles will be obtained to evaluate any changes in his renal status. (3) CLL (chronic lymphocytic leukemia) Is this a current diagnosis for this admission?: Yes Plan: The patient's chronic lymphocytic leukemia is currently in remission. Daily CBCs will be obtained to observe and evaluate any changes. (4) Polymyalgia rheumatica Is this a current diagnosis for this admission?: Yes Plan: Patient's polymyalgia rheumatica is currently stable on his usual pain regiment which will be continued. (5) Hypothyroidism Qualifiers: Hypothyroidism type: acquired Qualified Code(s): E03.9 - Hypothyroidism, unspecified Is this a current diagnosis for this admission?: Yes Plan: Patient's thyroid replacement medication will be continued his present dosage. A thyroid profile will be obtained to assess efficacy of his current therapy. - Time Time Spent with patient: 25-34 minutes Medications reviewed and adjusted accordingly: Yes Anticipated discharge: Home - Inpatient Certification Based on my medical assessment, after consideration of the patient's comorbidities, presenting symptoms, or acuity I expect that the services needed warrant INPATIENT care.: Yes I certify that my determination is in accordance with my understanding of Medicare's requirements for reasonable and necessary INPATIENT services [42 CFR 412.3e].: Yes Medical Necessity: Significant Comorbidiites Make Outpatient Treatment Too Risky, Need Close Monitoring Due to Risk of Patient Decompensation, Need for Pain Control, Need for IV Antibiotics, Risk of Complication if Not Cared For in Hospital
[2018-11-14] MEDS ORDERED: ERTAPENEM SODIUM 1 GM in NORMAL SALINE 50 ML IV SCH (06:00)
[2018-11-14] MEDS: LEVOTHYROXINE SODIUM 0.1 MG TABLET PO SCH (06:06)
[2018-11-14] MEDS: PANTOPRAZOLE SODIUM 40 MG TABLET.DR PO SCH ×2 (06:06→17:41)
[2018-11-14] MEDS ORDERED: ERTAPENEM SODIUM INJ 1 GM VIAL ONE (06:09)
[2018-11-14 06:26] LABS: FREE T3 2.38 pg/mL (2.77-5.27); FREE T4 (FREE THYROXINE) 1.28 ng/dL (0.78-2.19)
[2018-11-14 06:40] LABS: THYROID STIMULATING HORMONE 5.34 uIU/mL (0.47-4.68)
[2018-11-14] MEDS ORDERED: FUROSEMIDE 20 MG TABLET PO SCH (10:00)
[2018-11-14] MEDS ORDERED: NEBIVOLOL HCL 10 MG TABLET PO SCH (10:00)
[2018-11-14] MEDS: DOCUSATE SODIUM 100 MG CAPSULE PO SCH ×2 (11:42→17:41)
[2018-11-14] MEDS: ESCITALOPRAM OXALATE 10 MG TABLET PO SCH (11:42)
[2018-11-14] MEDS: DOFETILIDE 125 MCG CAPSULE PO SCH ×2 (13:41→21:51)
[2018-11-14 15:34] LABS: APPEARANCE,URINE CLEAR; BILIRUBIN,URINE NEGATIVE (NEGATIVE); COLOR,URINE YELLOW; GLUCOSE, URINE NEGATIVE (NEGATIVE); KETONES,URINE NEGATIVE (NEGATIVE); LEUKOCYTE ESTERASE,URINE NEGATIVE (NEGATIVE); NITRITE,URINE NEGATIVE (NEGATIVE); PROTEIN,URINE 100 mg/dL (NEGATIVE); URINE SPECIFIC GRAVITY 1.018; UROBILINOGEN,URINE NEGATIVE mg/dL (<2.0)
[2018-11-14] MEDS: OXYCODONE HCL IR 5 MG TABLET PO PRN (16:19)
--- NOTE | 2018-11-14 17:24 | Progress Note ---
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 He was found resting in bed comfortably on room air. He is arousable but quickly drifts back to sleep. He is oriented to himself at this time but does follow directions and answers occasional questions. Spoke with the patient's regarding plan of care; she reports improvement to the appearance of his legs already this morning. She does inform me that the patient's daughter has been inquiring about a medical transfer to a hospital in [place] near where she lives (reportedly she is a physician; daughter and at disagreement over this plan). Patient's reports that she is hopeful that the patient will be ready for discharge to home within the next 2 to 3 days; at which point she plans to drive him to [place] in their RV. She has no other questions or concerns at this time. Overnight events, vital signs, laboratory and imaging results, and orders reviewed. Agree with the plan of care as established by the previous provider with the exception that the patient's IV vancomycin and ertapenem have been discontinued. Review of previous blood culture results and 's confirmation that he responded well to p.o. Keflex prompted me to change to IV cefepime.
[2018-11-14] MEDS: TAMSULOSIN HCL 0.4 MG CAP.SR.24H PO SCH (17:41)
[2018-11-14] MEDS ORDERED: TAMSULOSIN HCL 0.4 MG CAP.SR.24H PO SCH (18:00)
[2018-11-14] MEDS: NEBIVOLOL HCL 10 MG TABLET PO SCH (21:58)
[2018-11-14] MEDS: PRAMIPEXOLE DI-HCL 0.5 MG TABLET PO SCH (21:58)
[2018-11-14] MEDS: CEFEPIME 1 GM/D5W RTU 1 GM/50 ML RTUPB IV SCH (21:58)
[2018-11-14] MEDS: QUETIAPINE FUMARATE 25 MG TABLET PO SCH (21:58)
[2018-11-15] MEDS: NALBUPHINE HCL INJ 10 MG/1 ML AMPULE IV PRN ×3 (03:49→18:58)
[2018-11-15 05:05] LABS: HEMATOCRIT 27.2 % (37.9-51.0); HEMOGLOBIN 9.1 g/dL (13.5-17.0); MEAN CORPUSCULAR HGB CONC 33.6 g/dL (32.0-36.0); MEAN CORPUSCULAR VOLUME 98 fl (80-97); RED BLOOD COUNT 2.76 10^6/uL (4.35-5.55); RED CELL DISTRIBUTION WIDTH 16.3 % (11.5-14.0); WHITE BLOOD COUNT 4.4 10^3/uL (4.0-10.5)
[2018-11-15 05:23] LABS: ANION GAP 8 (5-19); BLOOD UREA NITROGEN 57 mg/dL (7-20); CALCIUM 8.5 mg/dL (8.4-10.2); CARBON DIOXIDE 27 mmol/L (22-30); CHLORIDE 102 mmol/L (98-107); GLUCOSE 128 mg/dL (75-110); POTASSIUM 3.9 mmol/L (3.6-5.0)
[2018-11-15] MEDS: HEPARIN SOD (PORCINE) 5,000 UNIT/ML 1 ML VIAL SUBCUT SCH ×3 (05:28→23:32)
[2018-11-15] MEDS: LEVOTHYROXINE SODIUM 0.1 MG TABLET PO SCH ×2 (05:30→06:16)
[2018-11-15 05:34] LABS: PLATELET COUNT 56 10^3/uL (150-450)
[2018-11-15] MEDS: PANTOPRAZOLE SODIUM 40 MG TABLET.DR PO SCH ×2 (06:16→18:53)
--- NOTE | 2018-11-15 08:38 | Progress Note Acknowledgement ---
Progress Note Acknowledgement Progess Note Acknowledgement: I, the undersigned member of the medical staff with appropriate privileges and with supervisory authority over [Uriel Barragan], a dependent practice allied health professional, acknowledge that I have reviewed the progress notes entered on this patient, and in my professional judgment believe that the assessment made and/or any care evidenced was appropriate
--- NOTE | 2018-11-15 08:43 | PDOC PROGRESS REPORT ---
Subjective Progress Note for:: 11/15/18 Reason For Visit: ACUTE EXACERBATION OF RECURRENT CELLULITIS RIGHT Physical Exam Vital Signs: Temp Pulse Resp BP Pulse Ox 98.2 F 64 14 154/62 H 93 11/15/18 03:32 11/15/18 07:00 11/15/18 03:32 11/15/18 03:32 11/15/18 03:32 Intake & Output 11/14/18 11/15/18 11/16/18 06:59 06:59 06:59 Intake Total 310 1296 Output Total 1000 Balance 310 296 Weight 105.5 kg 104.1 kg General appearance: PRESENT: no acute distress, well-developed, well-nourished Head exam: PRESENT: atraumatic, normocephalic Eye exam: PRESENT: conjunctiva pink, EOMI, PERRLA. ABSENT: scleral icterus Ear exam: PRESENT: normal external ear exam Mouth exam: PRESENT: moist, tongue midline Neck exam: ABSENT: carotid bruit, JVD, lymphadenopathy, thyromegaly Respiratory exam: PRESENT: clear to auscultation lo. ABSENT: rales, rhonchi, wheezes Cardiovascular exam: PRESENT: RRR. ABSENT: diastolic murmur, rubs, systolic murmur Pulses: PRESENT: normal dorsalis pedis pul Vascular exam: PRESENT: normal capillary refill GI/Abdominal exam: PRESENT: normal bowel sounds, soft. ABSENT: distended, guarding, mass, organolmegaly, rebound, tenderness Rectal exam: PRESENT: deferred Extremities exam: PRESENT: pedal edema, +2 edema, other - Severe erythema from bilateral knees down to his feet he also has a large anterior rodriguez wound is a clean dry intact dressing in place. Neurological exam: PRESENT: alert, awake, oriented to person, oriented to place, oriented to time, oriented to situation, CN II-XII grossly intact. ABSENT: motor sensory deficit Psychiatric exam: PRESENT: appropriate affect, normal mood. ABSENT: homicidal i deation, suicidal ideation Skin exam: PRESENT: erythema - Severe erythema from bilateral knees down to his feet he also has a large anterior rodriguez wound is a clean dry intact dressing in place., warm. ABSENT: rash Adult Front & Back Image: 1 - Cellulitis 2 - Wound Results Laboratory Results: 11/15/18 04:43 11/15/18 04:43 11/14/18 11/15/18 11/15/18 02:30 04:43 04:43 WBC 4.4 RBC 2.76 L Hgb 9.1 L Hct 27.2 L MCV 98 H MCH 33.0 MCHC 33.6 RDW 16.3 H Plt Count 56 L Sodium 137.1 Potassium 3.9 Chloride 102 Carbon Dioxide 27 Anion Gap 8 BUN 57 H Creatinine 2.00 H Est GFR ( Amer) 39 L Glucose 128 H Calcium 8.5 Magnesium 2.3 Urine Color YELLOW Urine Appearance CLEAR Urine pH 5.0 Ur Specific [place] 1.018 Urine Protein 100 H Urine Glucose (UA) NEGATIVE Urine Ketones NEGATIVE Urine Blood NEGATIVE Urine Nitrite NEGATIVE Ur Leukocyte Esterase NEGATIVE Urine WBC (Auto) 2 Urine RBC (Auto) 3 Assessment and Plan - Diagnosis (1) Cellulitis of right lower extremity Is this a current diagnosis for this admission?: Yes Plan: Patient be treated with IV antibiotics including vancomycin and ertapenem. Blood and wound cultures are pending. Lactic acid x3 will be obtained. A daily CBC metabolic profile and magnesium level will be obtained. Physical therapy and Occupational Therapy will be consulted. Patient will use Nubain 5 to 10 mg IV every 3 hours on a as needed basis for pain using a sliding scale. 11/15/2018-patient currently on cefepime. We are awaiting cultures at this time. Physical and occupational therapy have been consulted will await the recommendations. We will continue PRN pain medications. Lactic acid is normal (2) CKD (chronic kidney disease), stage III Is this a current diagnosis for this admission?: Yes Plan: Patient's chronic kidney disease will be considered in all dosage calculations for his therapy. Serial metabolic profiles will be obtained to evaluate any changes in his renal status. 11/15/2018-stable, continue to follow daily BMPs (3) CLL (chronic lymphocytic leukemia) Is this a current diagnosis for this admission?: Yes Plan: The patient's chronic lymphocytic leukemia is currently in remission. Daily CBCs will be obtained to observe and evaluate any changes. 11/15/2018-stable continue to follow daily CBCs (4) Polymyalgia rheumatica Is this a current diagnosis for this admission?: Yes Plan: Patient's polymyalgia rheumatica is currently stable on his usual pain regiment which will be continued. [id number]-stable continue pain management (5) Hypothyroidism Qualifiers: Hypothyroidism type: acquired Qualified Code(s): E03.9 - Hypothyroidism, unspecified Is this a current diagnosis for this admission?: Yes Plan: Patient's thyroid replacement medication will be continued his present dosage. A thyroid profile will be obtained to assess efficacy of his current therapy. 11/15/2018-TSH minimally above higher limit T4 normal. Leave current dosing intact we will have patient follow-up on outpatient basis - Time Time Spent with patient: 15-24 minutes - Inpatient Certification Based on my medical assessment, after consideration of the patient's comorbidities, presenting symptoms, or acuity I expect that the services needed warrant INPATIENT care.: Yes I certify that my determination is in accordance with my understanding of Medicare's requirements for reasonable and necessary INPATIENT services [42 CFR 412.3e].: Yes Medical Necessity: Other - IV antibiotics pain control
[2018-11-15] MEDS ORDERED: CEFEPIME 1 GM/D5W RTU 1 GM/50 ML RTUPB IV SCH (10:00)
[2018-11-15] MEDS ORDERED: AMIODARONE HCL 200 MG TABLET PO SCH (10:00)
[2018-11-15] MEDS ORDERED: FUROSEMIDE 40 MG TABLET PO SCH (10:00)
[2018-11-15] MEDS ORDERED: PREDNISONE 5 MG TABLET PO SCH (10:00)
[2018-11-15 11:44] LABS: ARTERIAL BLOOD BASE EXCESS 0.9 mmol/L; ARTERIAL BLOOD HCO3 24.8 mmol/L (20-24); ARTERIAL BLOOD O2 SATURATION 95.9 % (94-98); ARTERIAL BLOOD PCO2 36.6 mmHg (35-45); ARTERIAL BLOOD PH 7.45 (7.35-7.45); ARTERIAL BLOOD PO2 76.8 mmHg (80-100); ARTERIAL BLOOD TOTAL CO2 25.9 mmol/L (23-27)
[2018-11-15 11:47] LABS: ARTERIAL BLOOD FIO2 21%
[2018-11-15] MEDS: OXYCODONE HCL IR 5 MG TABLET PO PRN ×2 (11:56→23:42)
[2018-11-15] MEDS ORDERED: VANCOMYCIN HCL 0 MG in DEXTROSE 5%-WATER 250 ML IV NR (12:00)
[2018-11-15] MEDS: DOCUSATE SODIUM 100 MG CAPSULE PO SCH ×2 (12:02→18:53)
[2018-11-15] MEDS: NEBIVOLOL HCL 10 MG TABLET PO SCH ×2 (12:02→23:39)
[2018-11-15] MEDS: ESCITALOPRAM OXALATE 10 MG TABLET PO SCH (12:03)
[2018-11-15] MEDS: FERROUS SULFATE 325 MG TABLET PO SCH (12:03)
[2018-11-15] MEDS: CALCITRIOL 0.25 MCG CAPSULE PO SCH (12:03)
[2018-11-15] MEDS: CEFEPIME 1 GM/D5W RTU 1 GM/50 ML RTUPB IV SCH ×2 (12:03→23:40)
[2018-11-15] MEDS: VANCOMYCIN HCL 1,250 MG in DEXTROSE 5%-WATER 250 ML IV SCH (14:16)
[2018-11-15] MEDS: NORMAL SALINE 1000 ML 1,000 ML IV PRN (14:16)
--- NOTE | 2018-11-15 14:38 | RADIOLOGY REPORT (SQ) ---
EXAM DESCRIPTION: CT HEAD WITHOUT COMPLETED DATE/TIME: 11/15/2018 2:27 pm REASON FOR STUDY: altered mental status COMPARISON: CT head 01/31/2016. TECHNIQUE: Axial images acquired through the brain without intravenous contrast. Images reviewed wi th bone, brain and subdural windows. Images stored on PACS. All CT scanners at this facility use dose modulation, iterative reconstruction, and/or weight based d osing when appropriate to reduce radiation dose to as low as reasonably achievable (ALARA). [facility]: Dose Right [facility]: CareDose [facility]: Dose Right [facility]: Teradose 4D [facility]: [employer] To Figure RADIATION DOSE: CT Rad equipment meets quality standard of care and radiation dose reduction techniq ues were employed. CTDIvol: 53.2 mGy. DLP: 1017 mGy-cm.mGy. LIMITATIONS: There is patient motion artifact. FINDINGS: There is extensive motion artifact. VENTRICLES: Prominent. CEREBRUM: No mass effect. No obvious hemorrhage. No midline shift. Areas of low density in the whi te matter most likely due to chronic micro-vascular ischemic change. No obvious evidence for acute t erritorial infarction. CEREBELLUM: No obvious hemorrhage or alteration of density. EXTRAAXIAL SPACES: Age-related involutional change. No obvious fluid collections. ORBITS AND GLOBE: Symmetrical contour of the globes. CALVARIUM: No depressed fracture. PARANASAL SINUSES: No air-fluid level. SOFT TISSUES: No hematoma. IMPRESSION: Study degraded by extensive motion artifact. No definite evidence for acute intracrania l hemorrhage or acute territorial infarct. If clinical concern persists, a repeat exam can be obtain ed when the patient will be able to cooperate with positioning. EVIDENCE OF ACUTE STROKE: NO. TECHNICAL DOCUMENTATION: JOB ID: [id number] Quality ID # [id number]: Final reports with documentation of one or more dose reduction techniques (e.g., Au tomated exposure control, adjustment of the mA and/or kV according to patient size, use of iterative reconstruction technique) 2010 [employer]- All Rights Reserved Reading location - IP/workstation name: [email or web address]
--- NOTE | 2018-11-15 14:47 | RADIOLOGY REPORT (SQ) ---
EXAM DESCRIPTION: CT RT LOWER EXTREMITY WITHOUT COMPLETED DATE/TIME: 11/15/2018 2:28 pm REASON FOR STUDY: osteo COMPARISON: None. TECHNIQUE: CT scan of the right lower leg performed without intravenous or oral contrast. Images re viewed with soft tissue and bone windows. Reconstructed coronal and sagittal MPR images reviewed. A ll images stored on PACS. All CT scanners at this facility use dose modulation, iterative reconstruction, and/or weight based d osing when appropriate to reduce radiation dose to as low as reasonably achievable (ALARA). [facility]: Dose Right [facility]: CareDose [facility]: Dose Right [facility]: Teradose 4D [facility]: [employer] RADIATION DOSE: CT Rad equipment meets quality standard of care and radiation dose reduction techniq ues were employed. CTDIvol: 4.2 mGy. DLP: 298 mGy-cm. mGy. LIMITATIONS: None. FINDINGS: BONES: Disuse osteopenia. Plate and screw fixation of the distal right fibula. 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 SOFT TISSUES: Severe, diffuse soft tissue edema of the included right lower extremity, similar to elan or examination. OTHER: No other significant finding. IMPRESSION: 1. Severe, diffuse soft tissue edema of the right lower leg, similar prior examination dated 06/03/2018. There is no obvious noncontrast focal fluid collection. 2. 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 MRI is the test of choice for the evaluation of bone marrow edema and suspect osteomyelitis. 3. 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 Plate and screw fixation of the dista l right fibula. TECHNICAL DOCUMENTATION: JOB ID: [id number] Quality ID # [id number]: Final reports with documentation of one or more dose reduction techniques (e.g., Au tomated exposure control, adjustment of the mA and/or kV according to patient size, use of iterative reconstruction technique) 2010 [facility]- All Rights Reserved Reading location - IP/workstation name: [email or web address]
--- NOTE | 2018-11-15 17:58 | RADIOLOGY REPORT (SQ) ---
EXAM DESCRIPTION: U/S NON-OB PELVIS W/O DOP COMPLETED DATE/TIME: 11/15/2018 5:40 pm REASON FOR STUDY: hernia right COMPARISON: None. TECHNIQUE: Dynamic and static grayscale images acquired of the right inguinal region and recorded on PACS. Additional selected color Doppler images recorded. LIMITATIONS: None. FINDINGS: Ultrasound scanning of the right inguinal region demonstrates enlarged lymph nodes, the la rgest measuring 3.4 x 1.7 x 1.0 cm. There is a 10.2 x 6.7 x 6.1 cm complex cystic area with internal septations at the right inguinal reg ion, with no significant vascular flow noted on Doppler images. No hernia was identified by ultrasound at the right inguinal region. IMPRESSION: 1. Large complex cystic area with internal septations at the right inguinal region, may represent a resolving hematoma, superimposed infection is not excludable. If there is no history of trauma or recent procedure, then a cystic mass is in the differential and contrast-enhanced MRI can b e obtained for further evaluation. 2. Right inguinal adenopathy. TECHNICAL DOCUMENTATION: JOB ID: [id number] [place]-[id number] 2010 [employer]- All Rights Reserved Rev Reading location - IP/workstation name: [email or web address]
[2018-11-15] MEDS: TAMSULOSIN HCL 0.4 MG CAP.SR.24H PO SCH (18:53)
[2018-11-15] MEDS: PRAMIPEXOLE DI-HCL 0.5 MG TABLET PO SCH (23:38)
[2018-11-15] MEDS: QUETIAPINE FUMARATE 25 MG TABLET PO SCH (23:41)
[2018-11-16 05:25] LABS: HEMATOCRIT 24.7 % (37.9-51.0); HEMOGLOBIN 8.3 g/dL (13.5-17.0); MEAN CORPUSCULAR HEMOGLOBIN 32.7 pg (27.0-33.4); MEAN CORPUSCULAR HGB CONC 33.5 g/dL (32.0-36.0); MEAN CORPUSCULAR VOLUME 97 fl (80-97); RED BLOOD COUNT 2.54 10^6/uL (4.35-5.55); WHITE BLOOD COUNT 4.2 10^3/uL (4.0-10.5)
[2018-11-16 05:36] LABS: ANION GAP 5 (5-19); BLOOD UREA NITROGEN 45 mg/dL (7-20); CALCIUM 8.1 mg/dL (8.4-10.2); CARBON DIOXIDE 26 mmol/L (22-30); CHLORIDE 106 mmol/L (98-107); GLUCOSE 112 mg/dL (75-110); POTASSIUM 3.9 mmol/L (3.6-5.0)
[2018-11-16] MEDS: HEPARIN SOD (PORCINE) 5,000 UNIT/ML 1 ML VIAL SUBCUT SCH ×3 (05:49→21:03)
[2018-11-16 05:57] LABS: PLATELET COUNT 52 10^3/uL (150-450)
[2018-11-16] MEDS: LEVOTHYROXINE SODIUM 0.1 MG TABLET PO SCH (06:46)
[2018-11-16] MEDS: PANTOPRAZOLE SODIUM 40 MG TABLET.DR PO SCH ×3 (06:46→16:53)
[2018-11-16] MEDS: NORMAL SALINE 1000 ML 1,000 ML IV PRN ×2 (06:52→23:32)
[2018-11-16] MEDS: DOCUSATE SODIUM 100 MG CAPSULE PO SCH ×2 (10:25→20:48)
[2018-11-16] MEDS: ESCITALOPRAM OXALATE 10 MG TABLET PO SCH ×2 (10:25→10:39)
[2018-11-16] MEDS: NEBIVOLOL HCL 10 MG TABLET PO SCH ×2 (10:26→21:10)
[2018-11-16] MEDS: PREDNISONE 20 MG TABLET PO SCH (10:26)
[2018-11-16] MEDS: FERROUS SULFATE 325 MG TABLET PO SCH (10:26)
[2018-11-16] MEDS: CALCITRIOL 0.25 MCG CAPSULE PO SCH (10:27)
[2018-11-16] MEDS: CEFEPIME 1 GM/D5W RTU 1 GM/50 ML RTUPB IV SCH ×2 (11:38→21:09)
[2018-11-16] MEDS: OXYCODONE HCL IR 5 MG TABLET PO PRN ×3 (12:45→23:37)
[2018-11-16] MEDS: VANCOMYCIN HCL 1,250 MG in DEXTROSE 5%-WATER 250 ML IV SCH (16:43)
[2018-11-16] MEDS: TAMSULOSIN HCL 0.4 MG CAP.SR.24H PO SCH (18:32)
[2018-11-16] MEDS ORDERED: OXYCODONE HCL IR 5 MG TABLET ONE (18:36)
[2018-11-16] MEDS: NALBUPHINE HCL INJ 10 MG/1 ML AMPULE IV PRN (21:46)
[2018-11-17] MEDS: HEPARIN SOD (PORCINE) 5,000 UNIT/ML 1 ML VIAL SUBCUT SCH ×2 (05:00→13:12)
[2018-11-17 05:14] LABS: HEMATOCRIT 25.2 % (37.9-51.0); HEMOGLOBIN 8.6 g/dL (13.5-17.0); MEAN CORPUSCULAR HEMOGLOBIN 33.1 pg (27.0-33.4); MEAN CORPUSCULAR VOLUME 97 fl (80-97); RED BLOOD COUNT 2.59 10^6/uL (4.35-5.55); RED CELL DISTRIBUTION WIDTH 15.9 % (11.5-14.0); WHITE BLOOD COUNT 4.2 10^3/uL (4.0-10.5)
[2018-11-17 05:32] LABS: ANION GAP 6 (5-19); BLOOD UREA NITROGEN 37 mg/dL (7-20); CALCIUM 8.4 mg/dL (8.4-10.2); CARBON DIOXIDE 28 mmol/L (22-30); CHLORIDE 104 mmol/L (98-107); GLUCOSE 102 mg/dL (75-110); POTASSIUM 3.9 mmol/L (3.6-5.0)
[2018-11-17] MEDS: PANTOPRAZOLE SODIUM 40 MG TABLET.DR PO SCH ×2 (05:36→16:47)
[2018-11-17] MEDS: LEVOTHYROXINE SODIUM 0.1 MG TABLET PO SCH (05:37)
[2018-11-17] MEDS: OXYCODONE HCL IR 5 MG TABLET PO PRN ×2 (05:37→16:47)
[2018-11-17 05:44] LABS: PLATELET COUNT 55 10^3/uL (150-450)
[2018-11-17] MEDS ORDERED: AMIODARONE HCL 200 MG TABLET PO SCH (10:00)
[2018-11-17] MEDS: FERROUS SULFATE 325 MG TABLET PO SCH (10:10)
[2018-11-17] MEDS: PREDNISONE 20 MG TABLET PO SCH (10:11)
[2018-11-17] MEDS: CALCITRIOL 0.25 MCG CAPSULE PO SCH (10:11)
[2018-11-17] MEDS: NEBIVOLOL HCL 10 MG TABLET PO SCH (10:11)
[2018-11-17] MEDS: ESCITALOPRAM OXALATE 10 MG TABLET PO SCH (10:12)
[2018-11-17] MEDS: DOCUSATE SODIUM 100 MG CAPSULE PO SCH ×2 (10:13→17:00)
[2018-11-17] MEDS: CEFEPIME 1 GM/D5W RTU 1 GM/50 ML RTUPB IV SCH (10:14)
[2018-11-17] MEDS: NORMAL SALINE 1000 ML 1,000 ML IV PRN (12:31)
[2018-11-17] MEDS: VANCOMYCIN HCL 1,250 MG in DEXTROSE 5%-WATER 250 ML IV SCH (14:02)
[2018-11-17 14:48] LABS: VANCOMYCIN,TROUGH 13.3 ug/mL (5.0-20.0)
[2018-11-17] MEDS: TAMSULOSIN HCL 0.4 MG CAP.SR.24H PO SCH ×2 (17:24→17:26)
[2018-11-17 18:29] VITALS: BP 103/48
== END 2018-11-17 19:22 | disposition home or self-care (01) | DRG 603 ==
LOC: ER 00:34 → EH 04:41 → 5 05:25
PROVIDERS: ADMIT Emergency Medicine; ATTEND Emergency Medicine
DX: L03.115 Cellulitis of right lower limb (principal); C91.10 Chronic lymphocytic leukemia of B-cell type not having achieved remission; N18.3 Chronic kidney disease, stage 3 (moderate); I12.9 Hypertensive chronic kidney disease with stage 1 through stage 4 chronic kidney disease, or unspecified chronic kidney disease; M35.3 Polymyalgia rheumatica; I48.91 Unspecified atrial fibrillation; M79.605 Pain in left leg; E78.00 Pure hypercholesterolemia, unspecified; E03.9 Hypothyroidism, unspecified; G47.30 Sleep apnea, unspecified; F03.90 Unspecified dementia, unspecified severity, without behavioral disturbance, psychotic disturbance, mood disturbance, and anxiety; B96.5 Pseudomonas (aeruginosa) (mallei) (pseudomallei) as the cause of diseases classified elsewhere; B95.62 Methicillin resistant Staphylococcus aureus infection as the cause of diseases classified elsewhere; Z79.2 Long term (current) use of antibiotics; Z79.82 Long term (current) use of aspirin; Z79.52 Long term (current) use of systemic steroids; Z79.899 Other long term (current) drug therapy
CPT/HCPCS: 36415; 36600; 70450; 76856; 80048; 80202; 81001; 82533; 82803; 83605; 83735; 84439; 84443; 84481; 85025; 85027; 85652; 86140; 87040; 87070; 87075; 87077; 87186; 87205; 96365; 96367; 99284; J0692; J0696; J1335; J2300; J3370; J3490; J7030; J7060; J7512